=== PATIENT | female | born 1980 | race Caucasian/White ===

== ENCOUNTER 2016-03-16 19:02 | Observation (INO) | payer MEDICAID ==
--- NOTE | 2016-03-16 19:25 | ER Document Report ---
ED Medical Screen (RME) - General Stated Complaint: ABNORMAL MENSTRAL Time seen by provider: 19:22 Mode of Arrival: Ambulatory Information source: Patient Notes: 36 yo female presents to ed for heavy vaginal bleeding abnormal not yet due. Apical pulse 120. A tampon an hours TRAVEL OUTSIDE OF THE [place] IN LAST 30 DAYS: No - HPI Onset: Other - 2 days Onset/Duration: Worse Quality of pain: Dull Severity: Moderate Pain Level: 3 Associated Symptoms: Abdominal pain, Vaginal bleeding Exacerbated by: Denies Relieved by: Denies - Related Data Smoking: Non-smoker Frequency of alcohol use: Occasional Drug Abuse: None Allergies/Adverse Reactions: Heparin Analogues [Heparin Agents] Allergy (Verified 12/25/14 11:36) latex [Latex] Allergy (Verified 12/25/14 11:36) meperidine HCl [From Demerol] Allergy (Verified 12/25/14 11:36) morphine [Morphine] Allergy (Verified 12/25/14 11:36) ondansetron HCl [From Zofran] Allergy (Verified 12/25/14 11:36) promethazine HCl [From Phenergan] Adverse Reaction (Verified 12/25/14 11:36) Past Medical History Pulmonary Medical History: Reports: Hx Asthma GI Medical History: Reports: Hx Gastroesophageal Reflux Disease Musculoskeltal Medical History: Reports Hx Arthritis Psychiatric Medical History: Reports: Hx Attention Deficit Hyperactivity Disorder Past Surgical History: Reports: Hx Abdominal Surgery - EXPLORATORY LAP, Hx Appendectomy, Hx Breast Surgery - LUMPS UNDER ARMS BILAT, Hx Section - X3, Hx Cholecystectomy, Hx Gynecologic Surgery - R OVARY, UTERUS REPAIR, Hx Orthopedic Surgery - L WRIST SCREW, ULNAR NERVE - Immunizations Hx Diphtheria, Pertussis, Tetanus Vaccination: - unknown Physical Exam - Vital signs Vitals: Temp Pulse Resp BP Pulse Ox 98.1 F 123 H 16 113/70 99 03/16/16 19:15 03/16/16 19:15 03/16/16 19:15 03/16/16 19:15 03/16/16 19:15 Course - Vital Signs Vital signs: Temp Pulse Resp BP Pulse Ox 98.1 F 123 H 16 113/70 99 03/16/16 19:15 03/16/16 19:15 03/16/16 19:15 03/16/16 19:15 03/16/16 19:15
[2016-03-16] MEDS ORDERED: NORMAL SALINE 1000 ML 1,000 ML IV ONE (19:26)
--- NOTE | 2016-03-16 19:50 | EKG REPORT ---
SEVERITY:- BORDERLINE ECG - SINUS TACHYCARDIA PROBABLE LEFT ATRIAL ABNORMALITY NONSPECIFIC ST-T CHANGES : Confirmed by: Sacha Hilton 16-Mar-2016 19:49:23
[2016-03-16 20:03] LABS: ABSOLUTE LYMPHOCYTES (AUTO) 2.6 10^3/uL (0.5-4.7); ABSOLUTE MONOCYTES (AUTO) 0.4 10^3/uL (0.1-1.4); ABSOLUTE NEUT (AUTO) 1.9 10^3/uL (1.7-8.2); BASOPHILS % (AUTO) 0.5 % (0-2); EOSINOPHILS % (AUTO) 0.8 % (0-6); HEMATOCRIT 41.6 % (36.0-47.0); HEMOGLOBIN 14.2 g/dL (12.0-15.5); LYMPHOCYTES % (AUTO) 51.7 % (13-45); MEAN CORPUSCULAR HEMOGLOBIN 33.1 pg (27.0-33.4); MEAN CORPUSCULAR HGB CONC 34.1 g/dL (32.0-36.0); MEAN CORPUSCULAR VOLUME 97 fl (80-97); MONOCYTES % (AUTO) 8.1 % (3-13); RED BLOOD COUNT 4.29 10^6/uL (3.72-5.28); RED CELL DISTRIBUTION WIDTH 13.5 % (11.5-14.0); SEGMENTED NEUTROPHILS % (AUTO) 38.9 % (42-78); WHITE BLOOD COUNT 4.9 10^3/uL (4.0-10.5)
[2016-03-16 20:24] LABS: ALANINE AMINOTRANSFERASE 32 U/L (9-52); ALBUMIN 4.8 g/dL (3.5-5.0); ALKALINE PHOSPHATASE 45 U/L (38-126); ANION GAP 18 (5-19); ASPARTATE AMINO TRANSFERASE 25 U/L (14-36); BILIRUBIN,TOTAL 0.4 mg/dL (0.2-1.3); BLOOD UREA NITROGEN 13 mg/dL (7-20); CALCIUM 9.6 mg/dL (8.4-10.2); CARBON DIOXIDE 21 mmol/L (22-30); CHLORIDE 107 mmol/L (98-107); CREATININE RESULT 0.86 mg/dL (0.52-1.25); GLUCOSE 108 mg/dL (75-110); POTASSIUM 3.5 mmol/L (3.6-5.0); SODIUM 146.2 mmol/L (137-145); TOTAL PROTEIN 7.6 g/dL (6.3-8.2)
[2016-03-16] MEDS ORDERED: ATENOLOL 50 MG TABLET PO ONE (21:07)
[2016-03-16 23:23] LABS: HEMOGLOBIN 12.4 g/dL (12.0-15.5); MEAN CORPUSCULAR VOLUME 98 fl (80-97)
[2016-03-16 23:38] LABS: HGB HCT DIFFERENCE 0.2; MEAN CORPUSCULAR HGB CONC 33.5 g/dL (32.0-36.0); RED BLOOD COUNT 3.77 10^6/uL (3.72-5.28); RED CELL DISTRIBUTION WIDTH 13.1 % (11.5-14.0)
[2016-03-16 23:39] LABS: WHITE BLOOD COUNT 11.3 10^3/uL (4.0-10.5)
[2016-03-17] MEDS ORDERED: KETOROLAC TROMETHAMINE INJ/PF 30 MG/1 ML SDV IV ONE (00:22)
--- NOTE | 2016-03-17 00:48 | ER Document Report ---
ED General - General Chief Complaint: Vaginal Bleeding Stated Complaint: ABNORMAL MENSTRAL Mode of Arrival: Ambulatory Notes: Patient is a 36-year-old female who presents with 2 days of progressively worsening vaginal bleeding. States she has been having irregular menstrual period for the last 6 weeks and that the bleeding has become much more heavy over the last several days. States she's bleeding for at least one pad per hour at this time. Notes an associated suprapubic abdominal cramping related nothing improves or worsens the pain. Notes a history of POTS disease and that she normal takes atenolol for this but that she does not normally have significant tachycardia after taking this medication. However, she has not been able to get her heart rate to decrease prior to arrival. She has not seen her primary care physician but did contact her [facility] office and does have an appointment scheduled for the ninth. She was instructed to come to the emergency department by the [facility] office based on the amount of bleeding and her tachycardia. She states that she did have an episode of bleeding requiring transfusion and ablation 17 years ago. TRAVEL OUTSIDE OF THE [place] IN LAST 30 DAYS: No - Related Data Allergies/Adverse Reactions: Heparin Analogues [Heparin Agents] Allergy (Verified 03/16/16 19:26) latex [Latex] Allergy (Verified 03/16/16 19:26) meperidine HCl [From Demerol] Allergy (Verified 03/16/16 19:26) morphine [Morphine] Allergy (Verified 03/16/16 19:26) ondansetron HCl [From Zofran] Allergy (Verified 03/16/16 19:26) promethazine HCl [From Phenergan] Adverse Reaction (Verified 03/16/16 19:26) Home Medications: Current Home Medications Clonazepam [Klonopin] 1 - 2 tab PO QHS 03/17/16 [History] Hydrocodone/Acetaminophen [Hydrocodon-Acetaminophn 10-325] 1 - 2 tab PO PRN PRN 03/17/16 [History] Lisdexamfetamine Dimesylate [Vyvanse] 70 mg PO QAM 03/17/16 [History] Montelukast Sodium [Singulair 10 mg Tablet] 1 tab PO QHS 03/17/16 [History] Omeprazole 1 tab PO DAILY 03/17/16 [History] Pregabalin [Lyrica 100 mg Capsule] 03/17/16 [History] Pregabalin [Lyrica] 1 tab PO BID 03/17/16 [History] Past Medical History - General Information source: Patient - Social History Smoking Status: Never Smoker Chew tobacco use (# tins/day): No Frequency of alcohol use: Occasional Drug Abuse: None Lives with: Family Family History: Reviewed & Not Pertinent Patient has suicidal ideation: No Patient has homicidal ideation: No Pulmonary Medical History: Reports: Hx Asthma GI Medical History: Reports: Hx Gastroesophageal Reflux Disease Musculoskeltal Medical History: Reports Hx Arthritis Psychiatric Medical History: Reports: Hx Attention Deficit Hyperactivity Disorder Past Surgical History: Reports: Hx Abdominal Surgery - EXPLORATORY LAP, Hx Appendectomy, Hx Breast Surgery - LUMPS UNDER ARMS BILAT, Hx Section - X3, Hx Cholecystectomy, Hx Gynecologic Surgery - R OVARY, UTERUS REPAIR, Hx Orthopedic Surgery - L WRIST SCREW, ULNAR NERVE - Immunizations Hx Diphtheria, Pertussis, Tetanus Vaccination: Yes - unknown Review of Systems - Review of Systems Notes: Constitutional: Negative for fever. HENT: Negative for sore throat. Eyes: Negative for visual changes. Cardiovascular: Negative for chest pain. Respiratory: Negative for shortness of breath. Gastrointestinal: Positive for suprapubic abdominal pain Genitourinary: Negative for dysuria. Positive for heavy vaginal bleeding Musculoskeletal: Negative for back pain. Skin: Negative for rash. Neurological: Negative for headaches, weakness or numbness. 10 point ROS negative except as marked above and in HPI. Physical Exam - Vital signs Vitals: Temp Pulse Resp BP Pulse Ox 98.1 F 123 H 16 113/70 99 03/16/16 19:15 03/16/16 19:15 03/16/16 19:15 03/16/16 19:15 03/16/16 19:15 Interpretation: Tachycardic Notes: PHYSICAL EXAMINATION: GENERAL: Well-appearing, well-nourished and in no acute distress. HEAD: Atraumatic, normocephalic. EYES: Pupils equal round and reactive to light, extraocular movements intact, sclera anicteric, conjunctiva are normal. ENT: nares patent, oropharynx clear without exudates. Moist mucous membranes. NECK: Normal range of motion, supple without lymphadenopathy LUNGS: Breath sounds clear to auscultation bilaterally and equal. No wheezes rales or rhonchi. HEART: Regular rate and rhythm without murmurs ABDOMEN: Soft, nontender, normoactive bowel sounds. No guarding, no rebound. No masses appreciated. : There is a large amount of dark vaginal bleeding on pelvic exam that fills the speculum. I will visualize the cervix secondary to the quantity of bleeding. No adnexal tenderness. No cervical motion tenderness. Suprapubic tenderness on light palpation. EXTREMITIES: Normal range of motion, no pitting or edema. No cyanosis. NEUROLOGICAL: No focal neurological deficits. Moves all extremities spontaneously and on command. PSYCH: Anxious and somewhat tremulous SKIN: Warm, Dry, normal turgor, no rashes or lesions noted. Course - Re-evaluation Re-evalutation: 03/17/16 03:18 Patient presents with dysfunctional uterine bleeding going through more than 1 pad per hour at this time. She does arrive tachycardic with a slightly soft blood pressure. She was observed in the emergency department and given IV fluids and atenolol without resolution of her tachycardia. At this juncture, a repeat CBC was obtained that did show a near 2 point hemoglobin drop. She only received 500 mL of fluid so this is a far greater drop in what I would expect for hemodilution. Moreover, her pressure did tilt downward into the 90s. Based on these clinical changes, patient was admitted to the [facility] service. A transvaginal ultrasound was requested and was noted to be unremarkable with the exception of a right cyst. Her tachycardia did resolve after receiving 1 mg of IV Ativan - Vital Signs Vital signs: Temp Pulse Resp BP Pulse Ox 98.0 F 102 H 17 101/61 100 03/17/16 02:40 03/17/16 02:40 03/17/16 02:40 03/17/16 02:40 03/17/16 02:40 - Laboratory Result Diagrams: 03/16/16 23:14 03/16/16 19:35 Laboratory results interpreted by me: 03/16/16 03/16/16 03/16/16 19:35 19:35 22:10 WBC MCV Seg Neutrophils % 38.9 L Lymphocytes % 51.7 H Sodium 146.2 H Potassium 3.5 L Carbon Dioxide 21 L Urine Ketones TRACE H Urine Blood MODERATE H 03/16/16 23:14 WBC 11.3 H D MCV 98 H Seg Neutrophils % Lymphocytes % Sodium Potassium Carbon Dioxide Urine Ketones Urine Blood - Diagnostic Test Radiology reviewed: Reports reviewed - EKG Interpretation by Me Additional EKG results interpreted by me: 03/17/16 03:20 Sinus tachycardia. Rate 107. No ST elevations or depressions. QTC 481. Discharge - Discharge Clinical Impression: Dysfunctional uterine bleeding, Tachycardia Condition: Fair Disposition: ADMITTED OBSERVATION Admitting Provider: [facility] Unit Admitted: Post
[2016-03-17] MEDS ORDERED: LORAZEPAM INJ 2 MG/1 ML VIAL IV ONE (00:59)
[2016-03-17 02:44] LABS: APPEARANCE,URINE SLIGHTLY-CLOUDY; BILIRUBIN,URINE NEGATIVE (NEGATIVE); CALCIUM OXALATE CRYSTALS,URINE FEW /HPF; GLUCOSE, URINE NEGATIVE (NEGATIVE); KETONES,URINE TRACE mg/dL (NEGATIVE); LEUKOCYTE ESTERASE,URINE NEGATIVE (NEGATIVE); NITRITE,URINE NEGATIVE (NEGATIVE); PROTEIN,URINE NEGATIVE (NEGATIVE); URINE SPECIFIC GRAVITY 1.027; UROBILINOGEN,URINE NEGATIVE mg/dL (<2.0)
[2016-03-17] MEDS ORDERED: ACETAMINOPHEN 325 MG TABLET PO ONE (03:45)
--- NOTE | 2016-03-17 03:49 | PDOC H&P ---
History of Present Illness Admission Date/PCP: 03/17/16 01:05 POLLO DOBBINS MD Patient complains of: vaginal bleeding and tachycardia History of Present Illness: TRAVIS VEGA is a 36 year old female (h/o C/S x3 and h/o BTL) presents for vaginal bleeding. She reports LMP 02/29/2016 then a couple of days ago she began having spotting and this am woke up to bed soaked with blood ( soaked through her pajamas). She presented to the ER for evaluation also because she was unable to get her tachycardia to go down with her atenolol. SHe reports h/o MELENDREZ and takes atenolol for her tachy when "sodium and pressure points do not work". She has multiple other comorbidities and is on chronic narcotics at this time as well as klonipin. In ER she was reported to have vaginal vault filling with old clot with speculum placement. No US done so requested prior to transfer to the floor. Initially plan was to have pt followed up in office in am since despite tachy (known issue for pt) she had a normal hb/Hct and was stable. However, due to persistently elevated HR ER physician was uncomfortable with discharge and after IVF hb/Hct decreased slightly. Pt reports that she had a similar episode occur 17 yrs ago with normal initial presentation then rapid decompensation which required emergent D& C. Past Medical History LMP: 03/14/16 Gynecological Infection: No Obstetrical History: none - H/o c/s x 3 Pulmonary Medical History: Reports: Asthma GI Medical History: Reports: Gastroesophageal Reflux Disease Musculoskeltal Medical History: Reports: Arthritis Psychiatric Medical History: Reports: Attention Deficit Hyperactivity Disorder Past Surgical History Past Surgical History: Reports: Appendectomy, Section - X3, Cholecystectomy, Orthopedic Surgery - L WRIST SCREW, ULNAR NERVE, Tubal Ligation , Other - H/S with uterine scar removed and apparent drain/balloon placement per pt Social History Information Source: Patient Lives with: Family Smoking Status: Former Smoker - stopped smoking 20yrs ago Hx Recreational Drug Use: No Drugs: None Hx Prescription Drug Abuse: No - Advance Directive Resuscitation Status: Full Code Family History Family History: Reviewed & Not Pertinent Parental Family History Reviewed: No Children Family History Reviewed: NA Sibling(s) Family History Reviewed.: NA Medication/Allergy Home Medications: Clonazepam [Klonopin] 1 - 2 tab PO QHS 03/17/16 Hydrocodone/Acetaminophen [Hydrocodon-Acetaminophn 10-325] 1 - 2 tab PO PRN PRN 03/17/16 Lisdexamfetamine Dimesylate [Vyvanse] 70 mg PO QAM 03/17/16 Montelukast Sodium [Singulair 10 mg Tablet] 1 tab PO QHS 03/17/16 Omeprazole 1 tab PO DAILY 03/17/16 Pregabalin [Lyrica 100 mg Capsule] 03/17/16 Pregabalin [Lyrica] 1 tab PO BID 03/17/16 Allergies/Adverse Reactions: Heparin Analogues [Heparin Agents] Allergy (Verified 03/16/16 19:26) latex [Latex] Allergy (Verified 03/16/16 19:26) meperidine HCl [From Demerol] Allergy (Verified 03/16/16 19:26) morphine [Morphine] Allergy (Verified 03/16/16 19:26) ondansetron HCl [From Zofran] Allergy (Verified 03/16/16 19:26) promethazine HCl [From Phenergan] Adverse Reaction (Verified 03/16/16 19:26) Review of Systems Constitutional: PRESENT: as per HPI Cardiovascular: PRESENT: palpitations Respiratory: ABSENT: cough, hemoptysis Gastrointestinal: ABSENT: abdominal pain, constipation, diarrhea, hematemesis, hematochezia, nausea, vomiting Genitourinary: PRESENT: other - suprapubic pain Musculoskeletal: PRESENT: other - Right shoulder pain s/p injury. ABSENT: joint swelling Integumentary: ABSENT: rash, wounds Neurological: ABSENT: abnormal gait, abnormal speech, confusion, dizziness, focal weakness, syncope Psychiatric: PRESENT: anxiety Endocrine: ABSENT: cold intolerance, heat intolerance, polydipsia, polyuria Hematologic/Lymphatic: ABSENT: easy bleeding, easy bruising Physical Exam - Physical Exam Vital Signs: Temp Pulse Resp BP Pulse Ox 98.0 F 102 H 17 101/61 100 03/17/16 02:40 03/17/16 02:40 03/17/16 02:40 03/17/16 02:40 03/17/16 02:40 General appearance: PRESENT: no acute distress, cooperative, well-developed, well-nourished Head exam: PRESENT: atraumatic, normocephalic Respiratory exam: PRESENT: clear to auscultation nella, symmetrical, unlabored Cardiovascular exam: PRESENT: +S1, +S2, tachycardia - 106 Pulses: PRESENT: normal dorsalis pedis pul, +2 pedal pulses bilateral Vascular exam: PRESENT: normal capillary refill GI/Abdominal exam: PRESENT: normal bowel sounds, soft. ABSENT: distended, guarding, mass, organolmegaly, rebound, tenderness Gentrourinary exam: PRESENT: other - scant blood in vault Extremities exam: PRESENT: full ROM. ABSENT: calf tenderness, clubbing, pedal edema Musculoskeletal exam: PRESENT: ambulatory Neurological exam: PRESENT: alert, awake, oriented to person, oriented to place , oriented to time, oriented to situation, CN II-XII grossly intact. ABSENT: motor sensory deficit Psychiatric exam: PRESENT: appropriate affect, normal mood. ABSENT: homicidal ideation, suicidal ideation Skin exam: PRESENT: dry, intact, warm. ABSENT: cyanosis, rash - Gynecological Exam Labia: normal Urethra: normal Introitus: normal Perineum: normal Vagina: normal Cervix: normal, other - scant blood in vault, blood tinged mucus at cervix Cervix: normal Uterus: tender Adhexa: normal Rectal: not examined Rectovaginal: not examined Result Laboratory Results: Labs- All tests 24 hr 03/16/16 03/16/16 03/16/16 19:35 19:35 19:35 WBC 4.9 RBC 4.29 Hgb 14.2 Hct 41.6 MCV 97 MCH 33.1 MCHC 34.1 RDW 13.5 Plt Count 285 Seg Neutrophils % 38.9 L Lymphocytes % 51.7 H Monocytes % 8.1 Eosinophils % 0.8 Basophils % 0.5 Absolute Neutrophils 1.9 Absolute Lymphocytes 2.6 Absolute Monocytes 0.4 Absolute Eosinophils 0.0 Absolute Basophils 0.0 Sodium 146.2 H Potassium 3.5 L Chloride 107 Carbon Dioxide 21 L Anion Gap 18 BUN 13 Creatinine 0.86 Est GFR ( Amer) > 60 Est GFR (Non-Af Amer) > 60 Glucose 108 Calcium 9.6 Total Bilirubin 0.4 Direct Bilirubin 0.0 AST 25 ALT 32 Alkaline Phosphatase 45 Total Protein 7.6 Albumin 4.8 Serum HCG, Qual NEGATIVE Urine Color Urine Appearance Urine pH Ur Specific [place] Urine Protein Urine Glucose (UA) Urine Ketones Urine Blood Urine Nitrite Urine Bilirubin Urine Urobilinogen Ur Leukocyte Esterase Urine WBC (Auto) Urine RBC (Auto) U Hyaline Cast (Auto) Urine Bacteria (Auto) Urine Red Cell Clumps Urine WBC Clumps Squamous Epi Cells Auto U Non-Squamous Epis Auto Calcium Carbonate Cryst Calcium Phosphate Cryst Calcium Oxalate Cr Auto Leucine Crystals Cystine Crystals Uric Acid Cryst (Auto) Triple Phos Cryst (Auto) Tyrosine Crystals Amorphous Sediment Auto Cellular Casts Epithelial Casts (Auto) Fatty Casts Granular Casts (Auto) Waxy Casts (Auto) Broad Casts RBC Casts (Auto) WBC Casts (Auto) Urine Mucus (Auto) U Trichomonas (Auto) Ur Yeast w Hyphae Urine Yeast (Budding) Urine Ascorbic Acid 03/16/16 03/16/16 03/16/16 19:55 22:10 23:14 WBC 11.3 H D RBC 3.77 Hgb 12.4 Hct 37.0 MCV 98 H MCH 33.0 MCHC 33.5 RDW 13.1 Plt Count 259 Seg Neutrophils % Lymphocytes % Monocytes % Eosinophils % Basophils % Absolute Neutrophils Absolute Lymphocytes Absolute Monocytes Absolute Eosinophils Absolute Basophils Sodium Potassium Chloride Carbon Dioxide Anion Gap BUN Creatinine Est GFR ( Amer) Est GFR (Non-Af Amer) Glucose Calcium Total Bilirubin Direct Bilirubin AST ALT Alkaline Phosphatase Total Protein Albumin Serum HCG, Qual Urine Color Cancelled YELLOW Urine Appearance Cancelled SLIGHTLY-CLOUDY Urine pH Cancelled 5.0 Ur Specific [place] Cancelled 1.027 Urine Protein Cancelled NEGATIVE Urine Glucose (UA) Cancelled NEGATIVE Urine Ketones Cancelled TRACE H Urine Blood Cancelled MODERATE H Urine Nitrite Cancelled NEGATIVE Urine Bilirubin Cancelled NEGATIVE Urine Urobilinogen Cancelled NEGATIVE Ur Leukocyte Esterase Cancelled NEGATIVE Urine WBC (Auto) Cancelled 0 Urine RBC (Auto) Cancelled 4 U Hyaline Cast (Auto) Cancelled Urine Bacteria (Auto) Cancelled Urine Red Cell Clumps Cancelled Urine WBC Clumps Cancelled Squamous Epi Cells Auto Cancelled U Non-Squamous Epis Auto Cancelled Calcium Carbonate Cryst Cancelled Calcium Phosphate Cryst Cancelled Calcium Oxalate Cr Auto Cancelled FEW Leucine Crystals Cancelled Cystine Crystals Cancelled Uric Acid Cryst (Auto) Cancelled Triple Phos Cryst (Auto) Cancelled Tyrosine Crystals Cancelled Amorphous Sediment Auto Cancelled Cellular Casts Cancelled Epithelial Casts (Auto) Cancelled Fatty Casts Cancelled Granular Casts (Auto) Cancelled Waxy Casts (Auto) Cancelled Broad Casts Cancelled RBC Casts (Auto) Cancelled WBC Casts (Auto) Cancelled Urine Mucus (Auto) Cancelled RARE U Trichomonas (Auto) Cancelled Ur Yeast w Hyphae Cancelled Urine Yeast (Budding) Cancelled Urine Ascorbic Acid Cancelled NEGATIVE Impressions: Transvaginal US 03/17/16 00:47 IMPRESSION: SMALL SIMPLE CYST IN THE RIGHT OVARY. OTHERWISE UNREMARKABLE TRANSVAGINAL PELVIC ULTRASOUND. ES 3mm Status: Image reviewed by me Assessment & Plan - Diagnosis (1) Dysfunctional uterine bleeding Is this a current diagnosis for this admission?: YesPlan: As per HPI. Initial plan was to discharge pt and have her f/u in office however tachycardia in ER and ER physician unable to discharge pt. Pt now with HR of 106 and stable. Exam completely benign. Will get repeat CBC in am and if ok and pt bleeding remains stable may be ok to discharge. (2) Tachycardia Is this a current diagnosis for this admission?: YesPlan: Dr. Way Hospitalist notified re: pt with tachy and advised to give pt Ativan 1mg. ER phsyician gave pt ativan and HR now down from 120-130 to 102- 106. Will follow CBC and pt NPO. If still tach in am may need Hospitalist to evaluate officially. - Time Time Spent: 30 to 50 Minutes Critical Time spent with patient: Less than 15 minutes Medications reviewed and adjusted accordingly: No Anticipated discharge: Home Within: within 24 hours - Inpatient Certification Medical Necessity: Need Close Monitoring Due to Risk of Patient Decompensation Post Hospital Care: D/C [employer] Operator Documentation
[2016-03-17 07:23] LABS: ABSOLUTE LYMPHOCYTES (AUTO) 2.2 10^3/uL (0.5-4.7); ABSOLUTE MONOCYTES (AUTO) 0.6 10^3/uL (0.1-1.4); ABSOLUTE NEUT (AUTO) 2.1 10^3/uL (1.7-8.2); BASOPHILS % (AUTO) 0.4 % (0-2); EOSINOPHILS % (AUTO) 0.7 % (0-6); HEMATOCRIT 32.4 % (36.0-47.0); HEMOGLOBIN 11.2 g/dL (12.0-15.5); HGB HCT DIFFERENCE 1.2; LYMPHOCYTES % (AUTO) 44.2 % (13-45); MEAN CORPUSCULAR HEMOGLOBIN 33.3 pg (27.0-33.4); MEAN CORPUSCULAR HGB CONC 34.5 g/dL (32.0-36.0); MEAN CORPUSCULAR VOLUME 97 fl (80-97); MONOCYTES % (AUTO) 11.4 % (3-13); RED BLOOD COUNT 3.36 10^6/uL (3.72-5.28); RED CELL DISTRIBUTION WIDTH 13.4 % (11.5-14.0); SEGMENTED NEUTROPHILS % (AUTO) 43.3 % (42-78); WHITE BLOOD COUNT 4.9 10^3/uL (4.0-10.5)
[2016-03-17 08:09] LABS: CHLAM PCR NOT DETECTED (NOT DETECT)
[2016-03-17] MEDS ORDERED: IBUPROFEN 800 MG TABLET PO PRN ×2 (10:29→11:23)
[2016-03-17] MEDS ORDERED: IBUPROFEN 800 MG TABLET PO ONE (11:00)
[2016-03-17 11:24] LABS: ANION GAP 13 (5-19); BLOOD UREA NITROGEN 14 mg/dL (7-20); CALCIUM 8.9 mg/dL (8.4-10.2); CARBON DIOXIDE 20 mmol/L (22-30); CHLORIDE 108 mmol/L (98-107); CREATININE RESULT 0.61 mg/dL (0.52-1.25); GLUCOSE 100 mg/dL (75-110); POTASSIUM 3.6 mmol/L (3.6-5.0); SODIUM 141.4 mmol/L (137-145)
[2016-03-17] MEDS ORDERED: CLONAZEPAM 1 MG TABLET PO PRN ×2 (15:21→15:28)
[2016-03-17] MEDS: HYDROCODONE/ACETAMINOPHEN 10-325 MG TABLET PO PRN ×2 (15:35→21:23)
[2016-03-17] MEDS ORDERED: METOPROLOL TARTRATE 25 MG TABLET PO ONE (17:00)
[2016-03-17] MEDS: PREGABALIN 50 MG CAPSULE PO SCH (21:23)
[2016-03-17] MEDS ORDERED: CLONAZEPAM 1 MG TABLET PO SCH (22:00)
[2016-03-17] MEDS ORDERED: CLONAZEPAM 1 MG PO SCH (22:00)
[2016-03-17] MEDS ORDERED: MONTELUKAST SODIUM 10 MG TABLET PO SCH (22:00)
[2016-03-18] MEDS ORDERED: LANSOPRAZOLE 30 MG TAB.RAP.DR PO SCH (08:00)
[2016-03-18] MEDS ORDERED: METOPROLOL TARTRATE 25 MG TABLET PO SCH (10:00)
[2016-03-18] MEDS: PREGABALIN 50 MG CAPSULE PO SCH (10:41)
[2016-03-18 12:50] VITALS: BP 100/48
== END 2016-03-18 14:20 | disposition home or self-care (01) ==
LOC: ER 19:02 → EH 03-17 01:05 → 4S 03-17 02:36
PROVIDERS: ADMIT Student in an Organized Health Care Education/Training Program; ATTEND Student in an Organized Health Care Education/Training Program
DX: N93.8 Other specified abnormal uterine and vaginal bleeding (principal); R00.0 Tachycardia, unspecified; Z87.891 Personal history of nicotine dependence; J45.909 Unspecified asthma, uncomplicated; K21.9 Gastro-esophageal reflux disease without esophagitis; M19.90 Unspecified osteoarthritis, unspecified site; F90.9 Attention-deficit hyperactivity disorder, unspecified type; Z79.899 Other long term (current) drug therapy
CPT/HCPCS: 93005; 99285; 96361; 96374; 36415 ×2; 84703; 85025 ×2; 85027; 80048; 80053; 81001; 87491; 87591; 76830; 93010; G0378 ×2; J3490 ×8; J1885; J7030

== ENCOUNTER 2016-04-05 07:22 | Day surgery (SDC) | payer MEDICAID ==
[2016-04-04 13:48] LABS: ABSOLUTE LYMPHOCYTES (AUTO) 1.5 10^3/uL (0.5-4.7); ABSOLUTE MONOCYTES (AUTO) 0.4 10^3/uL (0.1-1.4); BASOPHILS % (AUTO) 0.7 % (0-2); EOSINOPHILS % (AUTO) 0.9 % (0-6); HEMATOCRIT 38.5 % (36.0-47.0); HEMOGLOBIN 12.9 g/dL (12.0-15.5); HGB HCT DIFFERENCE 0.2; LYMPHOCYTES % (AUTO) 37.5 % (13-45); MEAN CORPUSCULAR HGB CONC 33.5 g/dL (32.0-36.0); MEAN CORPUSCULAR VOLUME 99 fl (80-97); MONOCYTES % (AUTO) 9.2 % (3-13); RED CELL DISTRIBUTION WIDTH 13.1 % (11.5-14.0); SEGMENTED NEUTROPHILS % (AUTO) 51.7 % (42-78); WHITE BLOOD COUNT 3.9 10^3/uL (4.0-10.5)
[2016-04-04 14:34] LABS: AMORPHOUS SEDIMENT,URINE TRACE /HPF; APPEARANCE,URINE CLOUDY; BILIRUBIN,URINE NEGATIVE (NEGATIVE); GLUCOSE, URINE NEGATIVE (NEGATIVE); KETONES,URINE NEGATIVE (NEGATIVE); LEUKOCYTE ESTERASE,URINE NEGATIVE (NEGATIVE); NITRITE,URINE NEGATIVE (NEGATIVE); PROTEIN,URINE NEGATIVE (NEGATIVE); URINE SPECIFIC GRAVITY 1.023; UROBILINOGEN,URINE NEGATIVE mg/dL (<2.0)
[~2016-04-05 07:22] MED LIST: ACETAMINOPHEN INJ/PF 1000 MG/100 ML SDV IV PRN; CEFAZOLIN 2 GM/D5W RTU 2 GM/50 ML RTUPB IV ONE; LACTATED RINGERS 1000 ML IV PRN; LIDOCAINE 0.5% INJ-PF (5 MG/ML) 50 ML SDV SUBCUT PRN
[2016-04-05] MEDS ORDERED: DEXAMETHASONE SOD PHOSPHATE INJ 4 MG/1 ML VIAL ONE (07:52)
[2016-04-05] MEDS ORDERED: LIDOCAINE 2% INJ-PF (20 MG/ML) 10 ML AMPUL ONE (07:52)
[2016-04-05] MEDS ORDERED: SUCCINYLCHOLINE CHLORIDE INJ 200 MG/10 ML VIAL ONE (07:52)
[2016-04-05] MEDS ORDERED: KETOROLAC TROMETHAMINE 60 MG/2 ML SDV ONE (07:52)
[2016-04-05] MEDS ORDERED: ONDANSETRON HCL INJ/PF 4 MG/2 ML SDV ONE (07:52)
[2016-04-05] MEDS ORDERED: ACETAMINOPHEN 100 ML IV ONE (08:45)
[2016-04-05] MEDS ORDERED: PROPOFOL INJ 200 MG/20 ML VIAL IV ONE (08:45)
[2016-04-05] MEDS ORDERED: MIDAZOLAM 2 MG/2 ML INJ ONE (08:45)
[2016-04-05] MEDS ORDERED: FENTANYL CITRATE INJ/PF 100 MCG/2 ML AMPUL ONE (08:45)
[2016-04-05] MEDS ORDERED: DIAZEPAM 5 MG TABLET ONE (09:26)
[2016-04-05] MEDS ORDERED: DIPHENHYDRAMINE HCL 50 MG/ML VIAL IV PRN (11:20)
[2016-04-05] MEDS: FENTANYL CITRATE INJ/PF 100 MCG/2 ML AMPUL ONE ×2 (11:55→12:00)
[2016-04-05] MEDS ORDERED: LORAZEPAM INJ 2 MG/1 ML VIAL ONE (12:02)
--- NOTE | 2016-04-05 12:13 | OPERATIVE REPORT E ---
Operative Report NAME: TRAVIS VEGA : 1980 AGE: 36Y DATE OF SURGERY: 04/05/2016 ROOM: PREOPERATIVE DIAGNOSES: 1. Abnormal uterine bleeding which led to anemia. 2. Endometrial polyp. POSTOPERATIVE DIAGNOSES: 1. Abnormal uterine bleeding which led to anemia. 2. Endometrial polyp OPERATION PERFORMED: Hysteroscopy with Novasure ablation. SURGEON: ROSE NUNEZ M.D. ANESTHESIA: General endotracheal. ESTIMATED BLOOD LOSS: 3 mL. SPECIMEN TO PATHOLOGY: None. FINDINGS: Uterine cavity was fairly atrophic. There were just scant filmy remnants where the endometrial polyp had been prior to biopsy. The cavity measurements were 4 cm in length 3.9 cm in width. Ablation was 2 minutes at a power of 86. DESCRIPTION OF PROCEDURE: After discussing risks, benefits, and alternatives of the procedure and obtaining informed consent, the patient was taken to the operating room where general anesthesia was achieved. She was positioned in the dorsal lithotomy position, prepped and draped in the usual standard fashion. Speculum was placed in the vagina, anterior aspect of the cervix was grasped with a single toothed tenaculum. The cervix was serially dilated to a #8 Hegar. The hysteroscope was placed with the findings noted as described above. The hysteroscope was removed. The Novasure device was placed and cavity measurements obtained. The cavity integrity assessment passed. The cavity was ablated for a total of 2 minutes. The device was removed. The hysteroscope was reintroduced and the cavity appeared ablated. The hysteroscope was removed and tenaculum was removed. Hemostasis was assured. The speculum was removed. Patient was taken out of dorsal lithotomy. She was awakened from anesthesia and to recovery in stable condition. All sponge, needle, lap, and instrument counts were correct x2. DICTATING PHYSICIAN: ROSE NUNEZ M.D. [id number] PHY#: [id number] ID: [id number] JOB#: [id number] ACCT: [id number] cc:ROSE NUNEZ M.D. > MTDD
[2016-04-05] MEDS ORDERED: OXYCODONE-ACETAMINOPHEN 5-325 MG TABLET PO PRN ×2 (12:23→12:24)
[2016-04-05] MEDS ORDERED: OXYCODONE HCL IR 5 MG TABLET PO PRN ×2 (12:27→12:28)
[2016-04-05 14:13] VITALS: BP 132/91
== END 2016-04-05 13:45 | disposition home or self-care (01) ==
LOC: OROUT 07:22
PROVIDERS: ATTEND Specialist
PROC: 0U5B8ZZ Destruction of Endometrium, Via Natural or Artificial Opening Endoscopic (ICD-10-PCS; principal; 2016-04-05 09:15)
DX: N92.6 Irregular menstruation, unspecified (principal); N84.0 Polyp of corpus uteri; J45.909 Unspecified asthma, uncomplicated; K21.9 Gastro-esophageal reflux disease without esophagitis; M19.90 Unspecified osteoarthritis, unspecified site; R01.1 Cardiac murmur, unspecified; Z79.899 Other long term (current) drug therapy; Z79.51 Long term (current) use of inhaled steroids; Z88.5 Allergy status to narcotic agent; Z88.8 Allergy status to other drugs, medicaments and biological substances
CPT/HCPCS: 86900; 86901; 36415; 86850; 85025; 81025; 81001; 58563; J2250; J1100; J3490 ×2; J1885; J3010; J2060; J0330; J2405; J2704; J0690; J0131; 952

== ENCOUNTER 2017-03-30 18:37 | Emergency (ER) | payer MEDICAID, OTHER ==
--- NOTE | 2017-03-30 19:09 | RADIOLOGY REPORT (SQ) ---
EXAM DESCRIPTION: CT HEAD WITHOUT COMPLETED DATE/TIME: 03/30/2017 7:01 pm REASON FOR STUDY: fall COMPARISON: None. TECHNIQUE: Axial images acquired through the brain without intravenous contrast. Images reviewed wi th bone, brain and subdural windows. Images stored on PACS. All CT scanners at this facility use dose modulation, iterative reconstruction, and/or weight based d osing when appropriate to reduce radiation dose to as low as reasonably achievable (ALARA). [facility]: Dose Right [facility]: CareDose [facility]: Dose Right [facility]: Teradose 4D [facility]: [place] RADIATION DOSE: CT Rad equipment meets quality standard of care and radiation dose reduction techniq ues were employed. CTDIvol: 64.6 mGy. DLP: 1163 mGy-cm. mGy. LIMITATIONS: None. FINDINGS: VENTRICLES: Normal size and contour. CEREBRUM: No masses. No hemorrhage. No midline shift. No evidence for acute infarction. Normal gra y/white matter differentiation. No areas of low density in the white matter. CEREBELLUM: No masses. No hemorrhage. No alteration of density. No evidence for acute infarction. EXTRAAXIAL SPACES: No fluid collections. No masses. ORBITS AND GLOBE: No intra- or extraconal masses. Normal contour of globe without masses. CALVARIUM: No fracture. PARANASAL SINUSES: No fluid or mucosal thickening. SOFT TISSUES: No mass or hematoma. OTHER: No other significant finding. IMPRESSION: NORMAL BRAIN CT WITHOUT CONTRAST. EVIDENCE OF ACUTE STROKE: NO. COMMENT: Quality ID # [id number]: Final reports with documentation of one or more dose reduction techniques (e.g., Automated exposure control, adjustment of the mA and/or kV according to patient size, use of iterative reconstruction technique) TECHNICAL DOCUMENTATION: JOB ID: [id number] [employer]- All Rights Reserved
--- NOTE | 2017-03-30 19:10 | RADIOLOGY REPORT (SQ) ---
EXAM DESCRIPTION: CT CERVICAL SPINE WITHOUT COMPLETED DATE/TIME: 03/30/2017 7:01 pm REASON FOR STUDY: fall COMPARISON: None. TECHNIQUE: Axial images acquired through the cervical spine without intravenous contrast. Images re viewed with lung, soft tissue and bone windows. Reconstructed coronal and sagittal MPR images review ed. Images stored on PACS. All CT scanners at this facility use dose modulation, iterative reconstruction, and/or weight based d osing when appropriate to reduce radiation dose to as low as reasonably achievable (ALARA). [facility]: Dose Right [facility]: CareDose [facility]: Dose Right [facility]: Teradose 4D [facility]: Smart Biba RADIATION DOSE: CT Rad equipment meets quality standard of care and radiation dose reduction techniq ues were employed. CTDIvol: 13.1 mGy. DLP: 299 mGy-cm. mGy. LIMITATIONS: None. FINDINGS: ALIGNMENT: Anatomic. MINERALIZATION: Normal. VERTEBRAL BODIES: No fractures or dislocation. DISCS: No significant disc disease. FACETS, LATERAL MASSES, POSTERIOR ELEMENTS: No fractures. No dislocation. No acute findings. HARDWARE: None in the spine. VISUALIZED RIBS: No fractures. LUNG APICES AND SOFT TISSUES: No significant or acute findings. OTHER: No other significant finding. IMPRESSION: NO ACUTE OR SIGNIFICANT FINDINGS IN THE CERVICAL SPINE. TECHNICAL DOCUMENTATION: JOB ID: [id number] Quality ID # [id number]: Final reports with documentation of one or more dose reduction techniques (e.g., Au tomated exposure control, adjustment of the mA and/or kV according to patient size, use of iterative reconstruction technique) 2010 [employer]- All Rights Reserved
--- NOTE | 2017-03-30 19:47 | ER Document Report ---
ED General - General Chief Complaint: Fall Stated Complaint: FALL/HEAD PAIN Time Seen by Provider: 03/30/17 19:27 Notes: Patient is a 37-year-old female with a past medical history of orthostatic hypotension, who presents after having a syncopal episode last night in which she struck her head on the toilet. She states that since that time she has had multiple episodes of vomiting, confusion, mood instability, and difficulty handling tasks that she normally does without difficulty. Symptoms have been unchanged since onset. Notes that her symptoms are worsened by lights, sounds and physical activity. Nothing improves her symptoms. No history of similar injuries in the past. She does not take any form of anticoagulation. She does also note a dull, constant, throbbing headache that is located to the bitemporal regions of her scalp. Nothing improves or worsens that pain. She has not seen her primary doctor regarding today's concerns. TRAVEL OUTSIDE OF THE [place] IN LAST 30 DAYS: No - Related Data Allergies/Adverse Reactions: Heparin Analogues [Heparin Agents] Allergy (Verified 03/30/17 18:41) latex [Latex] Allergy (Verified 03/30/17 18:41) TROUBLE BREATHING, RED RASH meperidine HCl [From Demerol] Allergy (Verified 03/30/17 18:41) morphine [Morphine] Allergy (Verified 03/30/17 18:41) ondansetron HCl [From Zofran] Allergy (Verified 03/30/17 18:41) scopolamine Allergy (Verified 03/30/17 18:41) promethazine HCl [From Phenergan] Adverse Reaction (Verified 03/30/17 18:41) Past Medical History - General Information source: Patient - Social History Smoking Status: Never Smoker Frequency of alcohol use: Occasional Drug Abuse: None Lives with: Spouse/Significant other Family History: Reviewed & Not Pertinent - Past Medical History Cardiac Medical History: Reports: Hx Hypertension Denies: Hx Coronary Artery Disease, Hx Heart Attack Pulmonary Medical History: Reports: Hx Asthma - EXERCISE INDUCED Denies: Hx Bronchitis, Hx COPD, Hx Pneumonia Neurological Medical History: Reports: Hx Seizures. Denies: Hx Cerebrovascular Accident GI Medical History: Reports: Hx Gastroesophageal Reflux Disease Musculoskeltal Medical History: Reports Hx Arthritis Psychiatric Medical History: Reports: Hx Attention Deficit Hyperactivity Disorder Past Surgical History: Reports: Hx Abdominal Surgery - EXPLORATORY LAP, Hx Appendectomy, Hx Breast Surgery - LUMPS UNDER ARMS BILAT, Hx Section - X3, Hx Cholecystectomy, Hx Gynecologic Surgery - R OVARY, UTERUS REPAIR, Hx Orthopedic Surgery - L WRIST SCREW, ULNAR NERVE, Hx Tubal Ligation, Other - H/S with uterine scar removed and apparent drain/balloon placement per pt - Immunizations Hx Diphtheria, Pertussis, Tetanus Vaccination: Yes - unknown Review of Systems - Review of Systems Notes: Constitutional: Negative for fever. HENT: Negative for sore throat. Eyes: Negative for visual changes. Cardiovascular: Negative for chest pain. Respiratory: Negative for shortness of breath. Gastrointestinal: Positive for vomiting Genitourinary: Negative for dysuria. Musculoskeletal: Negative for back pain. Skin: Negative for rash. Neurological: Positive for headache 10 point ROS negative except as marked above and in HPI. Physical Exam - Vital signs Vitals: Temp Pulse Resp BP Pulse Ox 98.1 F 122 H 18 118/88 H 94 03/30/17 18:48 03/30/17 18:48 03/30/17 18:48 03/30/17 18:48 03/30/17 18:48 Interpretation: Tachycardic Notes: PHYSICAL EXAMINATION: GENERAL: Well-appearing, well-nourished and in no acute distress. HEAD: Atraumatic, normocephalic. EYES: Pupils equal round and reactive to light, extraocular movements intact, sclera anicteric, conjunctiva are normal. ENT: nares patent, oropharynx clear without exudates. Dry mucous membranes. NECK: Normal range of motion, supple without lymphadenopathy LUNGS: Breath sounds clear to auscultation bilaterally and equal. No wheezes rales or rhonchi. HEART: Regular rate and rhythm without murmurs ABDOMEN: Soft, nontender, normoactive bowel sounds. No guarding, no rebound. No masses appreciated. EXTREMITIES: Normal range of motion, no pitting or edema. No cyanosis. NEUROLOGICAL: Face symmetric. Tongue protrudes midline. Extraocular motions intact. Pupils are 2 mm and equally reactive. Normal speech, normal gait. 5 out of 5 strength in both the distal and proximal upper and lower extremities bilaterally. Sensation is grossly intact throughout. Finger to nose testing normal. Pronator drift normal. PSYCH: Moderately anxious SKIN: Warm, Dry, normal turgor, no rashes or lesions noted. Course - Re-evaluation Re-evalutation: 03/30/17 19:44 Patient presents with signs and symptoms most consistent with an acute concussion after having a near syncopal episode yesterday striking her head on the toilet. 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 She states when she stood up from the toilet she became acutely lightheaded, fell forward and struck her head. Since that time she has had forgetfulness, lightheadedness, emotional lability, insomnia, and nausea. She states she also had lost consciousness at the time of the episode. Patient was therefore unable to be clinically cleared by [place] head or cervical spine criteria she was also complaining of neck pain with her neurologic complaints. CT the head and cervical spine are unremarkable. She has no focal neurologic deficit on examination. I have reviewed concussion precautions with the patient at length as well as her at the bedside. She did not sustain any additional injuries during this fall. She has no additional complaints or concerns. At this time will discharge with return precautions and follow-up recommendations. Verbal discharge instructions given a the bedside and opportunity for questions given. Medication warnings reviewed. Patient is in agreement with this plan and has verbalized understanding of return precautions and the need for primary care follow-up in the next 24-72 hours. - Vital Signs Vital signs: Temp Pulse Resp BP Pulse Ox 98.1 F 71 16 128/84 H 95 03/30/17 18:48 03/30/17 20:26 03/30/17 20:26 03/30/17 20:26 03/30/17 20:26 - Diagnostic Test Radiology reviewed: Image reviewed, Reports reviewed Radiology results interpreted by me: 03/30/17 19:46 CT head: No acute intracranial bleed Discharge - Discharge Clinical Impression: Head trauma Qualifiers: Encounter type: initial encounter Qualified Code(s): S09.90XA - Unspecified injury of head, initial encounter Concussion Qualifiers: Encounter type: initial encounter Loss of consciousness presence/duration: with LOC of 30 min or less Qualified Code(s): S06.0X1A - Concussion with loss of consciousness of 30 minutes or less, initial encounter Condition: Good Disposition: HOME, SELF-CARE Additional Instructions: You have likely sustained a contusion (bruise) to your head. If you had a CT scan done, it did not show any evidence of serious injury or bleeding. Symptoms to expect from a concussion include nausea, mild to moderate headache, difficulty concentrating or sleeping, and mild lightheadedness. These symptoms should improve over the next few days to weeks. Return to the emergency department or follow-up with your primary care doctor if your symptoms are not improving over this time. Signs of a more serious head injury include vomiting , severe headache, excessive sleepiness or confusion, and weakness or numbness in your face, arms or legs. Return immediately to the Emergency Department if you experience any of these more concerning symptoms. Rest, avoid strenuous physical or mental activity, and avoid activities that could potentially result in another head injury until all your symptoms from this head injury are completely resolved for at least 2-3 weeks. If you participate in sports, get cleared by your doctor or strainer tender before returning to play. You may take ibuprofen or acetaminophen over the counter according to label instructions for mild headache or scalp soreness. Referrals: NORA CASANOVA, [Primary Care Provider] - Follow up as needed
[2017-03-30 20:27] VITALS: BP 128/84
== END 2017-03-30 20:26 | disposition home or self-care (01) ==
LOC: ER 18:37
DX: S06.0X1A Concussion with loss of consciousness of 30 minutes or less, initial encounter (principal); W22.09XA Striking against other stationary object, initial encounter; R55 Syncope and collapse; F41.9 Anxiety disorder, unspecified; R00.0 Tachycardia, unspecified; I10 Essential (primary) hypertension; J45.909 Unspecified asthma, uncomplicated; Z88.8 Allergy status to other drugs, medicaments and biological substances; Z88.5 Allergy status to narcotic agent; Z91.040 Latex allergy status; Z86.79 Personal history of other diseases of the circulatory system
CPT/HCPCS: 99283; 70450; 72125; L0120

== ENCOUNTER → 2017-04-08 | Outpatient (CLI) | payer OTHER ==
--- NOTE | 2017-04-08 11:18 | RADIOLOGY REPORT (SQ) ---
EXAM DESCRIPTION: MRI HEAD WITHOUT COMPLETED DATE/TIME: 04/08/2017 11:03 am REASON FOR STUDY: EPISODE OF CHANGE IN SPEECH, HEAD INJURY R47.89 OTHER SPEECH DISTURBANCES S09.90X A UNSPECIFIED INJURY OF HEAD, INITIAL ENCOUNTER COMPARISON: CT of the head without contrast 03/30/2017. TECHNIQUE: Multiplanar imaging includes non-contrasted T1, T2, FLAIR, and diffusion with ADC map seq uences. Images stored on PACS. LIMITATIONS: None. FINDINGS: ANATOMY: No anomalies. Normal vascular flow voids. Pituitary fossa normal. CSF SPACES: Normal in size and contour. No hemorrhage. CEREBRUM: Sulci and gyri normal in size and contour. Normal white matter signal on FLAIR imaging. No evidence of hemorrhage, mass, or extraaxial fluid collection. POSTERIOR FOSSA: No signal alteration. No hemorrhage. No edema, masses or mass effect. Internal ellie tory canals, cerebello-pontine angles, mastoids normal. DIFFUSION IMAGING: Negative for acute or sub-acute infarction. ORBITS: No masses. Globes normal. PARANASAL SINUSES: No fluid levels. Mucosa normal. OTHER: No other significant finding. IMPRESSION: NORMAL MRI OF THE BRAIN WITHOUT INTRAVENOUS GADOLINIUM CONTRAST. EVIDENCE OF ACUTE STROKE: NO. TECHNICAL DOCUMENTATION: JOB ID: [id number] SC-[id number] 2010 [employer]- All Rights Reserved
== END ==
LOC: RAD 09:23
PROVIDERS: ATTEND Family Medicine
DX: S09.90XA Unspecified injury of head, initial encounter (principal); X58.XXXA Exposure to other specified factors, initial encounter; R47.89 Other speech disturbances; Y93.9 Activity, unspecified; Y92.9 Unspecified place or not applicable; Y99.9 Unspecified external cause status
CPT/HCPCS: 70551

== ENCOUNTER → 2017-04-17 | Outpatient (CLI) | payer OTHER ==
--- NOTE | 2017-04-17 14:25 | RADIOLOGY REPORT (SQ) ---
EXAM DESCRIPTION: MRI HEAD WITH COMPLETED DATE/TIME: 04/17/2017 11:42 am REASON FOR STUDY: R47.89 OTHER SPEECH DISTURBANCES R47.89 OTHER SPEECH DISTURBANCES COMPARISON: CT brain 03/30/2017 MRI brain 04/08/2017 TECHNIQUE: Multiplanar imaging includes noncontrasted T1, T2, FLAIR, diffusion with ADC map and post gadolinium contrast T1 sequences. Images stored on PACS. CONTRAST TYPE AND DOSE: 10 mL Multihance. RENAL FUNCTION: None required. The patient is less than 50 years old. LIMITATIONS: None. FINDINGS: Post contrasted MRI was performed, correlated with MRI exam from 04/08/2017. No abnormal brain parenchymal or dural enhancement. Normal enhancement of the dural venous sinuses a nd cavernous sinuses. No facial or scalp findings. IMPRESSION: Unremarkable post-contrast MRI of the brain EVIDENCE OF ACUTE STROKE: NO. TECHNICAL DOCUMENTATION: JOB ID: [id number] [employer]- All Rights Reserved
== END ==
LOC: RAD 10:49
PROVIDERS: ATTEND Family Medicine
DX: R47.89 Other speech disturbances (principal)
CPT/HCPCS: 70552; A9577

== ENCOUNTER 2017-04-25 21:40 | Emergency (ER) | payer OTHER ==
[2017-04-25] MEDS ORDERED: HALOPERIDOL LACTATE INJ 5 MG/1 ML VIAL ONE (21:47)
[2017-04-25] MEDS ORDERED: HALOPERIDOL LACTATE INJ 5 MG/1 ML VIAL IV ONE (21:47)
--- NOTE | 2017-04-25 21:48 | ER Document Report ---
ED General - General Stated Complaint: POSSIBLE SEIZURE Time Seen by Provider: 04/25/17 21:47 Cannot obtain history due to: Uncooperative, Altered mental status Notes: Patient is a 37-year-old female with a past medical history of pseudoseizures who presents actively having a pseudoseizure. She does arrive by EMS and did receive midazolam as well as diazepam prior to arrival. EMS reports that this did not resolve her symptoms. Patient is demonstrating pelvic thrusting, arm stretching, and screaming. However in the midst of these behaviors she is able to tell me her name and then goes back to pelvic thrusting and thrashing about the bed. History is otherwise limited secondary to patient's condition at time of presentation. TRAVEL OUTSIDE OF THE [place] IN LAST 30 DAYS: No - Related Data Allergies/Adverse Reactions: Heparin Analogues [Heparin Agents] Allergy (Verified 03/30/17 18:41) latex [Latex] Allergy (Verified 03/30/17 18:41) TROUBLE BREATHING, RED RASH meperidine HCl [From Demerol] Allergy (Verified 03/30/17 18:41) morphine [Morphine] Allergy (Verified 03/30/17 18:41) ondansetron HCl [From Zofran] Allergy (Verified 03/30/17 18:41) scopolamine Allergy (Verified 03/30/17 18:41) promethazine HCl [From Phenergan] Adverse Reaction (Verified 03/30/17 18:41) Past Medical History - General Information source: Transfer Record, Emergency Med Personnel, [facility] Records Cannot obtain history due to: Uncooperative, Altered mental status - Social History Smoking Status: Unknown if Ever Smoked Frequency of alcohol use: None Drug Abuse: None Lives with: Spouse/Significant other Family History: Reviewed & Not Pertinent - Past Medical History Cardiac Medical History: Reports: Hx Hypertension Denies: Hx Coronary Artery Disease, Hx Heart Attack Pulmonary Medical History: Reports: Hx Asthma - EXERCISE INDUCED Denies: Hx Bronchitis, Hx COPD, Hx Pneumonia Neurological Medical History: Reports: Hx Seizures. Denies: Hx Cerebrovascular Accident Renal/ Medical History: Denies: Hx Peritoneal Dialysis GI Medical History: Reports: Hx Gastroesophageal Reflux Disease Musculoskeltal Medical History: Reports Hx Arthritis Psychiatric Medical History: Reports: Hx Attention Deficit Hyperactivity Disorder Past Surgical History: Reports: Hx Abdominal Surgery - EXPLORATORY LAP, Hx Appendectomy, Hx Breast Surgery - LUMPS UNDER ARMS BILAT, Hx Section - X3, Hx Cholecystectomy, Hx Gynecologic Surgery - R OVARY, UTERUS REPAIR, Hx Orthopedic Surgery - L WRIST SCREW, ULNAR NERVE, Hx Tubal Ligation, Other - H/S with uterine scar removed and apparent drain/balloon placement per pt - Immunizations Hx Diphtheria, Pertussis, Tetanus Vaccination: Yes - unknown Review of Systems - Review of Systems -: Yes ROS unobtainable due to patient's medical condition Physical Exam - Vital signs Vitals: Resp Pulse Ox 29 H 98 04/25/17 21:47 04/25/17 21:47 Interpretation: Tachypneic Notes: PHYSICAL EXAMINATION: GENERAL: Thrashing around the bed, having a pseudoseizure HEAD: Atraumatic, normocephalic. EYES: Pupils equal round and reactive to light, sclera anicteric, conjunctiva are normal. ENT: nares patent, oropharynx clear without exudates. Moist mucous membranes. NECK: supple without lymphadenopathy LUNGS: Breath sounds clear to auscultation bilaterally and equal. No wheezes rales or rhonchi. HEART: Regular rate and rhythm without murmurs ABDOMEN: Soft, nontender, normoactive bowel sounds. No guarding, no rebound. No masses appreciated. EXTREMITIES: Normal range of motion, no pitting or edema. No cyanosis. NEUROLOGICAL: Moves all extremities spontaneously and will follow commands in all 4 extremities PSYCH: Highly anxious, crying out SKIN: Warm, Dry, normal turgor, no rashes or lesions noted. 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 Clinical history is inconsistent with an epileptic seizure and I do not believe any imaging or labs as indicated. Neurologic exam unremarkable without any focal neurologic deficits. No trauma sustained during today's episode. The patient does have a history of similar episodes in the past as well as a psychiatric history. Her symptoms did resolve after receiving IV haloperidol. At this time will discharge with return precautions and follow-up recommendations. Verbal discharge instructions given a the bedside and opportunity for questions given. Medication warnings reviewed. Patient is in agreement with this plan and has verbalized understanding of return precautions and the need for primary care follow-up in the next 24-72 hours. - Vital Signs Vital signs: Temp Pulse Resp BP Pulse Ox 15 98/66 L 96 04/26/17 00:03 04/26/17 00:05 04/26/17 00:03 Discharge - Discharge Clinical Impression: Pseudoseizure Condition: Good Disposition: HOME, SELF-CARE Additional Instructions: Your episode of shaking today was likely due to something called PNES, also known as pseudogenic non-epileptiform seizures. These are often also often referred to as pseudoseizures. These are not voluntary. However, they are not coming from an abnormal focus in your brain like somebody who has true epilepsy. These episodes can often be triggered by stress, anxiety, or not taking your normal medications. Please follow-up with your primary care doctor at your earliest ability. Return for any additional concerns you may have including if you develop a fever, nausea, vomiting, pass out, have focal weakness or numbness, or any other symptoms that are concerning to you.
[2017-04-26 00:11] VITALS: BP 98/66
== END 2017-04-26 00:11 | disposition home or self-care (01) ==
LOC: ER 21:40
DX: G40.89 Other seizures (principal); R41.82 Altered mental status, unspecified; I10 Essential (primary) hypertension; Z91.040 Latex allergy status; Z88.6 Allergy status to analgesic agent; Z90.49 Acquired absence of other specified parts of digestive tract; Z98.51 Tubal ligation status
CPT/HCPCS: 99284; 96374; J1630

== ENCOUNTER 2017-10-24 13:24 | Emergency (ER) | payer OTHER ==
[2017-10-24] MEDS ORDERED: KETOROLAC TROMETHAMINE 60 MG/2 ML SDV IM ONE (14:10)
--- NOTE | 2017-10-24 14:11 | ER Document Report ---
ED Medical Screen (RME) - General Chief Complaint: Flank Pain Stated Complaint: FLANK PAIN Time Seen by Provider: 10/24/17 14:06 Notes: 37 years old female with chronic medical problems, chronic pancreatitis, presents today with right lower abdomen and right flank pain for the last few days. Associated with nausea and vomited a few times. No fever chills no dysuria or frequency. Denies any hematuria On examination-stuttering, questionable right flank tenderness as well as right groin tenderness TRAVEL OUTSIDE OF THE [place] IN LAST 30 DAYS: No - Related Data Allergies/Adverse Reactions: Heparin Analogues [Heparin Agents] Allergy (Verified 03/30/17 18:41) latex [Latex] Allergy (Verified 03/30/17 18:41) TROUBLE BREATHING, RED RASH meperidine HCl [From Demerol] Allergy (Verified 03/30/17 18:41) morphine [Morphine] Allergy (Verified 03/30/17 18:41) ondansetron HCl [From Zofran] Allergy (Verified 03/30/17 18:41) scopolamine Allergy (Verified 03/30/17 18:41) promethazine HCl [From Phenergan] Adverse Reaction (Verified 03/30/17 18:41) Past Medical History - Social History Chew tobacco use (# tins/day): No Frequency of alcohol use: Occasional Drug Abuse: None - Past Medical History Cardiac Medical History: Reports: Hx Hypertension Denies: Hx Coronary Artery Disease, Hx Heart Attack Pulmonary Medical History: Reports: Hx Asthma - EXERCISE INDUCED Denies: Hx Bronchitis, Hx COPD, Hx Pneumonia Neurological Medical History: Reports: Hx Seizures. Denies: Hx Cerebrovascular Accident Renal/ Medical History: Denies: Hx Peritoneal Dialysis GI Medical History: Reports: Hx Gastroesophageal Reflux Disease Musculoskeltal Medical History: Reports Hx Arthritis Psychiatric Medical History: Reports: Hx Attention Deficit Hyperactivity Disorder Past Surgical History: Reports: Hx Abdominal Surgery - EXPLORATORY LAP, Hx Appendectomy, Hx Breast Surgery - LUMPS UNDER ARMS BILAT, Hx Section - X3, Hx Cholecystectomy, Hx Gynecologic Surgery - R OVARY, UTERUS REPAIR, Hx Orthopedic Surgery - L WRIST SCREW, ULNAR NERVE, Hx Tubal Ligation, Other - H/S with uterine scar removed and apparent drain/balloon placement per pt - Immunizations Hx Diphtheria, Pertussis, Tetanus Vaccination: Yes - unknown Physical Exam - Vital signs Vitals: Temp Pulse Resp BP Pulse Ox 97.9 F 111 H 14 102/67 100 10/24/17 13:30 10/24/17 13:30 10/24/17 13:30 10/24/17 13:30 10/24/17 13:30 Course - Vital Signs Vital signs: Temp Pulse Resp BP Pulse Ox 97.9 F 111 H 14 102/67 100 10/24/17 13:30 10/24/17 13:30 10/24/17 13:30 10/24/17 13:30 10/24/17 13:30
[2017-10-24] MEDS ORDERED: KETOROLAC TROMETHAMINE 60 MG/2 ML SDV ONE (14:28)
[2017-10-24 15:33] LABS: APPEARANCE,URINE SLIGHTLY-CLOUDY; BILIRUBIN,URINE NEGATIVE (NEGATIVE); COLOR,URINE YELLOW; GLUCOSE, URINE NEGATIVE (NEGATIVE); KETONES,URINE NEGATIVE (NEGATIVE); LEUKOCYTE ESTERASE,URINE NEGATIVE (NEGATIVE); NITRITE,URINE NEGATIVE (NEGATIVE); PROTEIN,URINE NEGATIVE (NEGATIVE); URINE SPECIFIC GRAVITY 1.019; UROBILINOGEN,URINE NEGATIVE mg/dL (<2.0)
[2017-10-24 15:39] LABS: ABSOLUTE BASOPHILS # (AUTO) 0.1 10^3/uL (0.0-0.2); ABSOLUTE EOSINOPHILS # (AUTO) 0.1 10^3/uL (0.0-0.6); ABSOLUTE LYMPHOCYTES (AUTO) 2.4 10^3/uL (0.5-4.7); ABSOLUTE MONOCYTES (AUTO) 0.3 10^3/uL (0.1-1.4); ABSOLUTE NEUT (AUTO) 2.3 10^3/uL (1.7-8.2); EOSINOPHILS % (AUTO) 2.5 % (0-6); HEMATOCRIT 43.4 % (36.0-47.0); HEMOGLOBIN 14.8 g/dL (12.0-15.5); LYMPHOCYTES % (AUTO) 45.5 % (13-45); MEAN CORPUSCULAR HEMOGLOBIN 33.9 pg (27.0-33.4); MEAN CORPUSCULAR HGB CONC 34.2 g/dL (32.0-36.0); MEAN CORPUSCULAR VOLUME 99 fl (80-97); MONOCYTES % (AUTO) 6.2 % (3-13); PLATELET COUNT 272 10^3/uL (150-450); RED BLOOD COUNT 4.37 10^6/uL (3.72-5.28); RED CELL DISTRIBUTION WIDTH 13.5 % (11.5-14.0); SEGMENTED NEUTROPHILS % (AUTO) 44.8 % (42-78); TOTAL CELLS COUNTED % (AUTO) 100 %; WHITE BLOOD COUNT 5.2 10^3/uL (4.0-10.5)
[2017-10-24] MEDS ORDERED: OXYCODONE-ACETAMINOPHEN 5-325 MG TABLET PO ONE ×3 (15:41→22:36)
[2017-10-24 15:48] LABS: URINE AMPHETAMINES SCREEN UNCONFIRMED POSITIVE; URINE BARBITURATES SCREEN NEGATIVE; URINE BENZODIAZEPINES SCREEN NEGATIVE; URINE COCAINE SCREEN NEGATIVE; URINE MARIJUANA (THC) SCREEN UNCONFIRMED POSITIVE; URINE METHADONE SCREEN NEGATIVE; URINE PHENCYCLIDINE SCREEN NEGATIVE
--- NOTE | 2017-10-24 15:52 | ER Document Report ---
ED GI/ - General Chief Complaint: Flank Pain Stated Complaint: FLANK PAIN Time Seen by Provider: 10/24/17 14:06 Notes: Patient is a 29-year-old female who presents with chief complaint of right- sided abdominal pain and flank pain that started on Sunday morning. Patient reports that she has a history of pancreatitis. Patient reports that the pain fluctuates in intensity. Patient has medical history of appendectomy and cholecystectomy. Patient denies any urinary symptoms or fever. Patient does report some nausea denies any vomiting or diarrhea. TRAVEL OUTSIDE OF THE [place] IN LAST 30 DAYS: No - Related Data Allergies/Adverse Reactions: Heparin Analogues [Heparin Agents] Allergy (Verified 03/30/17 18:41) latex [Latex] Allergy (Verified 03/30/17 18:41) TROUBLE BREATHING, RED RASH meperidine HCl [From Demerol] Allergy (Verified 03/30/17 18:41) morphine [Morphine] Allergy (Verified 03/30/17 18:41) ondansetron HCl [From Zofran] Allergy (Verified 03/30/17 18:41) scopolamine Allergy (Verified 03/30/17 18:41) promethazine HCl [From Phenergan] Adverse Reaction (Verified 03/30/17 18:41) Past Medical History - General Information source: Patient - Social History Smoking Status: Current Some Day Smoker Chew tobacco use (# tins/day): No Frequency of alcohol use: Occasional Drug Abuse: None Family History: Reviewed & Not Pertinent Patient has suicidal ideation: No Patient has homicidal ideation: No - Past Medical History Cardiac Medical History: Reports: Hx Hypertension Denies: Hx Coronary Artery Disease, Hx Heart Attack Pulmonary Medical History: Reports: Hx Asthma - EXERCISE INDUCED Denies: Hx Bronchitis, Hx COPD, Hx Pneumonia Neurological Medical History: Reports: Hx Seizures. Denies: Hx Cerebrovascular Accident Renal/ Medical History: Denies: Hx Peritoneal Dialysis GI Medical History: Reports: Hx Gastroesophageal Reflux Disease Musculoskeletal Medical History: Reports Hx Arthritis Psychiatric Medical History: Reports: Hx Attention Deficit Hyperactivity Disorder Past Surgical History: Reports: Hx Abdominal Surgery - EXPLORATORY LAP, Hx Appendectomy, Hx Breast Surgery - LUMPS UNDER ARMS BILAT, Hx Section - X3, Hx Cholecystectomy, Hx Gynecologic Surgery - R OVARY, UTERUS REPAIR, Hx Orthopedic Surgery - L WRIST SCREW, ULNAR NERVE, Hx Tubal Ligation, Other - H/S with uterine scar removed and apparent drain/balloon placement per pt - Immunizations Hx Diphtheria, Pertussis, Tetanus Vaccination: Yes - unknown Review of Systems - Review of Systems Constitutional: No symptoms reported EENT: No symptoms reported Cardiovascular: No symptoms reported Respiratory: No symptoms reported Gastrointestinal: See HPI Genitourinary: No symptoms reported Female Genitourinary: No symptoms reported Musculoskeletal: No symptoms reported Skin: No symptoms reported Hematologic/Lymphatic: No symptoms reported Neurological/Psychological: No symptoms reported Physical Exam - Vital signs Vitals: Temp Pulse Resp BP Pulse Ox 97.9 F 111 H 14 102/67 100 10/24/17 13:30 10/24/17 13:30 10/24/17 13:30 10/24/17 13:30 10/24/17 13:30 - Notes Notes: PHYSICAL EXAMINATION: GENERAL: Well-appearing, well-nourished and in no acute distress. HEAD: Atraumatic, normocephalic. EYES: Pupils equal round and reactive to light, extraocular movements intact, conjunctiva are normal. ENT: Nares patent, oropharynx clear without exudates. Moist mucous membranes. NECK: Normal range of motion, supple without lymphadenopathy LUNGS: Breath sounds clear to auscultation bilaterally and equal. No wheezes rales or rhonchi. HEART: Regular rate and rhythm without murmurs ABDOMEN: Soft, ondistended abdomen, tenderness to palpation to right lower quadrant. No guarding, no rebound. No masses appreciated. Female : Speculum exam reveals moderate amount of white discharge, no adnexal tenderness, no cervical motion tenderness. Musculoskeletal: Normal range of motion, no pitting or edema. No cyanosis. NEUROLOGICAL: Cranial nerves grossly intact. Normal speech, normal gait. Normal sensory, motor exams PSYCH: Normal mood, normal affect. SKIN: Warm, Dry, normal turgor, no rashes or lesions noted. Course - Re-evaluation Re-evalutation: CT abdomen pelvis and transvaginal ultrasound are both unremarkable for any acute findings. Patient has not vomited while in the department. - Vital Signs Vital signs: Temp Pulse Resp BP Pulse Ox 98.4 F 72 16 102/59 L 100 10/24/17 22:15 10/24/17 22:15 10/24/17 22:15 10/24/17 22:15 10/24/17 22:15 - Laboratory Result Diagrams: 10/24/17 14:23 10/24/17 14:23 Laboratory results interpreted by me: 10/24/17 10/24/17 14:23 14:23 MCV 99 H MCH 33.9 H Lymphocytes % 45.5 H Lipase 914.5 H Discharge - Discharge Clinical Impression: Pancreatitis Qualifiers: Chronicity: chronic Pancreatitis type: other Qualified Code(s): K86.1 - Other chronic pancreatitis Abdominal pain Qualifiers: Abdominal location: right lower quadrant Qualified Code(s): R10.31 - Right lower quadrant pain Condition: Stable Disposition: HOME, SELF-CARE Additional Instructions: Pancreatitis Pancreatitis is an inflammation of the pancreas, an organ at the back of your abdomen. The pancreas produces insulin and enzymes that digest your food. Pancreatitis can be caused by gallstones in the bile duct, by alcohol or viruses, or by excess fat or calcium in the blood stream. Occasionally, pancreatitis occurs when a stomach ulcer justice through into the pancreas. We try to find the cause of pancreatitis, but some tests can't be done until the pancreas heals. The usual symptoms of pancreatitis are pain in the pit of the stomach that goes straight through to the back, vomiting, and low-grade fever. Severe cases require hospital admission, but many patients with mild pancreatitis do well at home. You will probably need medicine for pain and for vomiting. Sometimes we prescribe medicine to decrease stomach acid secretion and to decrease flow of pancreatic juices. Start with a diet of clear liquids (soda pop, juices). When the pain is decreasing, you can add some simple starches (potato, toast, applesauce). Avoid proteins and fats until you are completely painfree. When you're better, your doctor may suggest treatment to prevent future pancreatitis (such as gallbladder removal). Avoid alcohol forever. Get immediate treatment for any future episodes. Contact your doctor at once or return here if you have increasing pain, shortness of breath, general swelling, increasing size of the abdomen, continued vomiting, muscle spasms, or other new symptoms. Please use over-the- counter Benadryl for the nausea as you are allergic to essentially all other antiemetics. Prescriptions: Oxycodone HCl/Acetaminophen [Percocet 5-325 mg Tablet] 1 - 2 tab PO Q4H PRN #15 tablet PRN Reason: Forms: Return to Work Referrals: NORA CASANOVA DO [Primary Care Provider] - Follow up as needed
[2017-10-24 15:58] LABS: ALANINE AMINOTRANSFERASE 20 U/L (9-52); ALBUMIN 4.8 g/dL (3.5-5.0); ALKALINE PHOSPHATASE 51 U/L (38-126); ANION GAP 13 (5-19); ASPARTATE AMINO TRANSFERASE 25 U/L (14-36); BILIRUBIN,DIRECT 0.3 mg/dL (0.0-0.4); BILIRUBIN,TOTAL 0.4 mg/dL (0.2-1.3); BLOOD UREA NITROGEN 9 mg/dL (7-20); CALCIUM 9.4 mg/dL (8.4-10.2); CARBON DIOXIDE 22 mmol/L (22-30); CHLORIDE 106 mmol/L (98-107); GLUCOSE 96 mg/dL (75-110); LIPASE 914.5 U/L (23-300); POTASSIUM 4.1 mmol/L (3.6-5.0)
--- NOTE | 2017-10-24 17:44 | RADIOLOGY REPORT (SQ) ---
EXAM DESCRIPTION: U/S NON OB PEL TV W/DOPPLER COMPLETED DATE/TIME: 10/24/2017 5:35 pm REASON FOR STUDY: right pelvic pain COMPARISON: None. TECHNIQUE: Dynamic and static grayscale images acquired of the pelvis via transvaginal approach and recorded on PACS. Additional selected color Doppler and spectral images recorded. LIMITATIONS: None. FINDINGS: UTERUS: Contour normal. No mass. ENDOMETRIAL STRIPE: No focal or generalized thickening. No masses. CERVIX: No nabothian cysts. RIGHT OVARY AND DOPPLER: Ovary not visualized. LEFT OVARY AND DOPPLER: Ovary not visualized. FREE FLUID: Fluid in the cul de sac. OTHER: No other significant finding. IMPRESSION: Normal uterus. Fluid in the cul de sac. TECHNICAL DOCUMENTATION: JOB ID: [id number] [email or web address]- All Rights Reserved Rev-07/27 Reading location - IP/workstation name: [email or web address]
[2017-10-24] MEDS ORDERED: NORMAL SALINE 1000 ML 1,000 ML IV ONE (18:50)
[2017-10-24] MEDS ORDERED: DIPHENHYDRAMINE HCL 50 MG/ML VIAL IV ONE (18:51)
[2017-10-24 19:05] LABS: RBCS (WET MOUNT) NO RBCS SEEN; T.VAGINALIS (WET MOUNT) NO TRICHOMONAS SEEN; WBCS (WET MOUNT) NO WBCS SEEN; YEAST (WET MOUNT) NO YEAST SEEN
[2017-10-24 20:38] LABS: CHLAM PCR NOT DETECTED (NOT DETECT); GON PCR NOT DETECTED (NOT DETECT)
--- NOTE | 2017-10-24 20:52 | RADIOLOGY REPORT (SQ) ---
EXAM DESCRIPTION: CT ABD/PELVIS WITH IV ONLY COMPLETED DATE/TIME: 10/24/2017 8:43 pm REASON FOR STUDY: abd pain, elevated lipase COMPARISON: None. TECHNIQUE: CT scan of the abdomen and pelvis performed using helical scanning technique with dynamic intravenous contrast injection. No oral contrast. Images reviewed with lung, soft tissue, and bone windows. Reconstructed coronal and sagittal MPR images reviewed. Delayed images for evaluation of the urinary system also acquired. All images stored on PACS. All CT scanners at this facility use dose modulation, iterative reconstruction, and/or weight based d osing when appropriate to reduce radiation dose to as low as reasonably achievable (ALARA). [facility]: Dose Right [facility]: CareDose [facility]: Dose Right [facility]: Teradose 4D [facility]: [facility] CONTRAST TYPE AND DOSE: contrast/concentration: Isovue 350.00 mg/ml; Total Contrast Delivered: 56.0 ml; Total Saline Delivered: 32.0 ml RENAL FUNCTION: None required. The patient is less than 50 years old. RADIATION DOSE: CT Rad equipment meets quality standard of care and radiation dose reduction techniq ues were employed. CTDIvol: 4.8 - 4.8 mGy. DLP: 443 mGy-cm.. LIMITATIONS: None. FINDINGS: LOWER CHEST: No significant findings. No nodules or infiltrates. LIVER: Normal size. No masses. No dilated ducts. SPLEEN: Normal size. No focal lesions. PANCREAS: No masses. No significant calcifications. No adjacent inflammation or peripancreatic fluid collections. Pancreatic duct not dilated. GALLBLADDER: Surgically absent. ADRENAL GLANDS: No significant masses or asymmetry. RIGHT KIDNEY AND URETER: No solid masses. No significant calcifications. No hydronephrosis or hyd roureter. LEFT KIDNEY AND URETER: No solid masses. No significant calcifications. No hydronephrosis or hydr oureter. AORTA AND VESSELS: No aneurysm. No dissection. Renal arteries, SMA, celiac without stenosis. RETROPERITONEUM: No retroperitoneal adenopathy, hemorrhage or masses. BOWEL AND PERITONEAL CAVITY: No masses or inflammatory changes. No free fluid or peritoneal masses. APPENDIX: Surgically absent. PELVIS: Marked venous varicosities in the left pelvis with a markedly dilated left ovarian vein. No thrombus. ABDOMINAL WALL: No masses. No hernias. BONES: No significant or acute findings. OTHER: No other significant finding. IMPRESSION: Findings in the left pelvis compatible with pelvic congestion syndrome. Marked varicosi ties and dilated left ovarian vein. No acute findings. TECHNICAL DOCUMENTATION: JOB ID: [id number] Quality ID # [id number]: Final reports with documentation of one or more dose reduction techniques (e.g., Au tomated exposure control, adjustment of the mA and/or kV according to patient size, use of iterative reconstruction technique) 2010 [employer]- All Rights Reserved Reading location - IP/workstation name: [email or web address]
[2017-10-24 22:19] VITALS: BP 102/59
== END 2017-10-24 22:43 | disposition home or self-care (01) ==
LOC: ER 13:24
DX: K86.1 Other chronic pancreatitis (principal); R10.31 Right lower quadrant pain; R11.0 Nausea; Z90.49 Acquired absence of other specified parts of digestive tract; F17.200 Nicotine dependence, unspecified, uncomplicated; I10 Essential (primary) hypertension; J45.909 Unspecified asthma, uncomplicated
CPT/HCPCS: 99284; 96372; 96361; 96374; 36415; 87210; 83690; 85025; 81025; 80053; 81001; 80307; 87491; 87591; 76830; 93976; 74177; J1200; J1885; J7030

== ENCOUNTER 2017-10-30 11:34 | Emergency (ER) | payer OTHER ==
[2017-10-30] MEDS ORDERED: ONDANSETRON HCL INJ/PF 4 MG/2 ML SDV IV ONE (12:27)
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
[2017-10-30] MEDS: RINGERS SOLUTION,LACTATED 1,000 ML IV PRN ×2 (13:01→15:54)
[2017-10-30 13:03] LABS: ABSOLUTE EOSINOPHILS # (AUTO) 0.1 10^3/uL (0.0-0.6); ABSOLUTE MONOCYTES (AUTO) 0.3 10^3/uL (0.1-1.4); ABSOLUTE NEUT (AUTO) 2.2 10^3/uL (1.7-8.2); BASOPHILS % (AUTO) 0.9 % (0-2); EOSINOPHILS % (AUTO) 2.3 % (0-6); HEMATOCRIT 45.8 % (36.0-47.0); HEMOGLOBIN 15.5 g/dL (12.0-15.5); LYMPHOCYTES % (AUTO) 43.5 % (13-45); MEAN CORPUSCULAR HEMOGLOBIN 33.5 pg (27.0-33.4); MEAN CORPUSCULAR HGB CONC 33.9 g/dL (32.0-36.0); MEAN CORPUSCULAR VOLUME 99 fl (80-97); MONOCYTES % (AUTO) 6.2 % (3-13); PLATELET COUNT 261 10^3/uL (150-450); RED BLOOD COUNT 4.64 10^6/uL (3.72-5.28); RED CELL DISTRIBUTION WIDTH 13.2 % (11.5-14.0); SEGMENTED NEUTROPHILS % (AUTO) 47.1 % (42-78); TOTAL CELLS COUNTED % (AUTO) 100 %; WHITE BLOOD COUNT 4.6 10^3/uL (4.0-10.5)
[2017-10-30 13:13] LABS: APPEARANCE,URINE SLIGHTLY-CLOUDY; BILIRUBIN,URINE NEGATIVE (NEGATIVE); GLUCOSE, URINE NEGATIVE (NEGATIVE); KETONES,URINE TRACE mg/dL (NEGATIVE); LEUKOCYTE ESTERASE,URINE NEGATIVE (NEGATIVE); NITRITE,URINE NEGATIVE (NEGATIVE); PROTEIN,URINE 30 mg/dL (NEGATIVE); URINE SPECIFIC GRAVITY 1.033
[2017-10-30] MEDS ORDERED: DIPHENHYDRAMINE HCL 50 MG/ML VIAL IV ONE (13:14)
[2017-10-30 13:15] LABS: COLOR,URINE YELLOW
[2017-10-30 13:20] LABS: URINE AMPHETAMINES SCREEN UNCONFIRMED POSITIVE; URINE BARBITURATES SCREEN NEGATIVE; URINE BENZODIAZEPINES SCREEN NEGATIVE; URINE COCAINE SCREEN NEGATIVE; URINE MARIJUANA (THC) SCREEN UNCONFIRMED POSITIVE; URINE METHADONE SCREEN NEGATIVE; URINE PHENCYCLIDINE SCREEN NEGATIVE
[2017-10-30 13:23] LABS: ALANINE AMINOTRANSFERASE 15 U/L (9-52); ALKALINE PHOSPHATASE 56 U/L (38-126); ANION GAP 14 (5-19); ASPARTATE AMINO TRANSFERASE 37 U/L (14-36); BILIRUBIN,DIRECT 0.3 mg/dL (0.0-0.4); BILIRUBIN,TOTAL 0.5 mg/dL (0.2-1.3); BLOOD UREA NITROGEN 13 mg/dL (7-20); CALCIUM 9.5 mg/dL (8.4-10.2); CARBON DIOXIDE 25 mmol/L (22-30); CHLORIDE 104 mmol/L (98-107); GLUCOSE 108 mg/dL (75-110); LIPASE 95.5 U/L (23-300); POTASSIUM 3.7 mmol/L (3.6-5.0); SODIUM 142.6 mmol/L (137-145); TOTAL PROTEIN 8.7 g/dL (6.3-8.2)
[2017-10-30 13:24] LABS: ALCOHOL < 10 mg/dL (NONE DETECTED)
[2017-10-30] MEDS ORDERED: OXYCODONE-ACETAMINOPHEN 5-325 MG TABLET PO ONE ×2 (14:08→17:38)
[2017-10-30] MEDS ORDERED: HYDROMORPHONE HCL INJ/PF 2 MG/ML AMPULE IV ONE (18:26)
--- NOTE | 2017-10-30 18:28 | PDOC CONSULTATION ---
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 She reports that she was seen in the ER for several day history of pelvic pain that she initially thought was an ovarian cyst. She also has chronic pancreatitis and was told last week that could be the cause of her pain. She returns today with continued worsening of the pain and also n/v and weight loss (12-15 #) over the last couple of weeks. She is unable to tolerate pain without IV narcotics and is having sig nausea and unable to tolerate intake without n/v Past Medical History Gynecological Infection: No Cardiac Medical History: Reports: Hypertension Denies: Coronary Artery Disease, Myocardial Infarction Pulmonary Medical History: Reports: Asthma - EXERCISE INDUCED Denies: Bronchitis, Chronic Obstructive Pulmonary Disease (COPD), Pneumonia Neurological Medical History: Reports: Seizures GI Medical History: Reports: Gastroesophageal Reflux Disease Musculoskeltal Medical History: Reports: Arthritis Psychiatric Medical History: Reports: Attention Deficit Hyperactivity Disorder Social History Information Source: Patient Lives with: Family Smoking Status: Former Smoker Frequency of Alcohol Use: Occasional Hx Recreational Drug Use: No Drugs: Marijuana, Other - amphetamines and THC on UDS Hx Prescription Drug Abuse: No Family History Family History: Reviewed & Not Pertinent Parental Family History Reviewed: No Children Family History Reviewed: NA Sibling(s) Family History Reviewed.: NA Medication/Allergy Home Medications: Clonazepam [Klonopin] 1 mg PO ASDIR PRN 03/17/16 Dextroamphetamine/Amphetamine [Adderall Xr 30 mg Capsule] 30 mg PO BID 10/30/17 Naproxen [Naproxen] 1 tab PO BID 10/30/17 Allergies/Adverse Reactions: Heparin Analogues [Heparin Agents] Allergy (Verified 03/30/17 18:41) latex [Latex] Allergy (Verified 03/30/17 18:41) TROUBLE BREATHING, RED RASH meperidine HCl [From Demerol] Allergy (Verified 03/30/17 18:41) morphine [Morphine] Allergy (Verified 03/30/17 18:41) ondansetron HCl [From Zofran] Allergy (Verified 03/30/17 18:41) scopolamine Allergy (Verified 03/30/17 18:41) promethazine HCl [From Phenergan] Adverse Reaction (Verified 03/30/17 18:41) Review of Systems Constitutional: PRESENT: anorexia, fatigue, weakness, weight loss Cardiovascular: ABSENT: chest pain, dyspnea on exertion, edema, orthropnea, palpitations Respiratory: ABSENT: cough, hemoptysis Gastrointestinal: PRESENT: abdominal pain, nausea, vomiting. ABSENT: constipation, diarrhea, hematemesis, hematochezia Integumentary: ABSENT: rash, wounds Neurological: PRESENT: as per HPI, abnormal speech, confusion, syncope - history of syncope Psychiatric: ABSENT: anxiety, depression, homidical ideation, suicidal ideation Endocrine: ABSENT: cold intolerance, heat intolerance, polydipsia, polyuria Hematologic/Lymphatic: ABSENT: easy bleeding, easy bruising Physical Exam - Physical Exam Vital Signs: Temp Pulse Resp BP Pulse Ox 97.6 F 115 H 20 89/57 L 100 10/30/17 17:26 10/30/17 17:26 10/30/17 17:26 10/30/17 17:26 10/30/17 17:26 Intake & Output 10/29/17 10/30/17 10/31/17 06:59 06:59 06:59 Intake Total 1000 Balance 1000 Weight 49.4 kg General appearance: PRESENT: no acute distress, cooperative, mild distress Head exam: PRESENT: atraumatic, normocephalic Respiratory exam: PRESENT: clear to auscultation nella, symmetrical, unlabored Cardiovascular exam: PRESENT: RRR. ABSENT: diastolic murmur, rubs, systolic murmur Vascular exam: PRESENT: normal capillary refill GI/Abdominal exam: PRESENT: guarding, normal bowel sounds, soft, tenderness - diffuse lower pelvic ttp. ABSENT: ascites, diminished bowel sounds, distended, firm, hernia, mass, Lazo's sign, organolmegaly, rebound, rigid Extremities exam: PRESENT: full ROM. ABSENT: calf tenderness, clubbing, pedal edema Musculoskeletal exam: PRESENT: ambulatory Neurological exam: PRESENT: alert, awake, oriented to person, oriented to place , oriented to time, oriented to situation, CN II-XII grossly intact. ABSENT: motor sensory deficit Psychiatric exam: PRESENT: anxious, appropriate affect Skin exam: PRESENT: dry, intact, warm. ABSENT: cyanosis, rash Result Laboratory Results: 10/30/17 12:31 10/30/17 12:31 10/30/17 10/30/17 10/30/17 12:31 12:31 12:31 WBC 4.6 RBC 4.64 Hgb 15.5 Hct 45.8 MCV 99 H MCH 33.5 H MCHC 33.9 RDW 13.2 Plt Count 261 Seg Neutrophils % 47.1 Lymphocytes % 43.5 Monocytes % 6.2 Eosinophils % 2.3 Basophils % 0.9 Absolute Neutrophils 2.2 Absolute Lymphocytes 2.0 Absolute Monocytes 0.3 Absolute Eosinophils 0.1 Absolute Basophils 0.0 Sodium 142.6 Potassium 3.7 Chloride 104 Carbon Dioxide 25 Anion Gap 14 BUN 13 Creatinine 0.94 Est GFR ( Amer) > 60 Est GFR (Non-Af Amer) > 60 Glucose 108 Calcium 9.5 Total Bilirubin 0.5 AST 37 H ALT 15 Alkaline Phosphatase 56 Total Protein 8.7 H Albumin 5.0 Lipase 95.5 Serum HCG, Qual NEGATIVE Urine Color Urine Appearance Urine pH Ur Specific Wheeler Urine Protein Urine Glucose (UA) Urine Ketones Urine Blood Urine Nitrite Ur Leukocyte Esterase Urine WBC (Auto) Urine RBC (Auto) 10/30/17 12:31 WBC RBC Hgb Hct MCV MCH MCHC RDW Plt Count Seg Neutrophils % Lymphocytes % Monocytes % Eosinophils % Basophils % Absolute Neutrophils Absolute Lymphocytes Absolute Monocytes Absolute Eosinophils Absolute Basophils Sodium Potassium Chloride Carbon Dioxide Anion Gap BUN Creatinine Est GFR ( Amer) Est GFR (Non-Af Amer) Glucose Calcium Total Bilirubin AST ALT Alkaline Phosphatase Total Protein Albumin Lipase Serum HCG, Qual Urine Color YELLOW Urine Appearance SLIGHTLY-CLOUDY Urine pH 5.0 Ur Specific Wheeler 1.033 Urine Protein 30 H Urine Glucose (UA) NEGATIVE Urine Ketones TRACE H Urine Blood NEGATIVE Urine Nitrite NEGATIVE Ur Leukocyte Esterase NEGATIVE Urine WBC (Auto) 2 Urine RBC (Auto) 2 Status: Image reviewed by me - significant varicosities and pelvic congestion on CT scan. US benign Assessment & Plan - Diagnosis (1) Pelvic congestion syndrome Is this a current diagnosis for this admission?: Yes Plan: CT and US reviewed from last week. pt reports increasing pain. Reviewed options for management - progesterone and IR procedure. Reviewed with patient that progesterone is not an acute treatment and unlikely to help with her pain. Pt with significant other comorbidities that may also be contributing to the pain such as chronic pancreatitis. Pt is trying to obtain care with physician at [facility] for chronic pancreatitis issue. Reviewed with patient that we could start progesterone but not an acute management versus transfer to another facility for specific IR treatment that would be able to actually treat her pain. Pt is in significant pain and unable to tolerate food so we discussed that would recommend admission but that admission here would not be able to provide IR intervention to treat her pain. Reviewed with patient that would recommend transfer to facility able to provide IR treatment for her pelvic congestion syndrome as well as her other medical issues that may be contributing to the severity of her pain. At this time she is unable to obtain relief via po pain meds and unable to keep po food/meds down and has noted a weight loss so outpatient treatment would not be of benefit to her. in order to provide timely effective treatment for her acute medical needs would recommend transfer to facility with IR capabilities. No e/o other cause for her severe pelvic pain at this time. Reviewed case with Dr. Manrique who agrees with transfer to facility with IR capabilities. - Time Time Spent: 30 to 50 Minutes Critical Time spent with patient: Less than 15 minutes Smoking Cessation Education: 3 to 10 minutes Medications reviewed and adjusted accordingly: Yes Anticipated discharge: Other Within: within 24 hours Disposition: to facility with IR capabilities - Inpatient Certification Based on my medical assessment, after consideration of the patient's comorbidities, presenting symptoms, or acuity I expect that the services needed warrant INPATIENT care.: Yes I certify that my determination is in accordance with my understanding of Medicare's requirements for reasonable and necessary INPATIENT services [42 CFR 412.3e].: Yes Medical Necessity: Need For IV Fluids, Need for Pain Control, Other - need for transfer to another facility for proper care
[2017-10-30 19:21] VITALS: BP 99/55
[2017-10-30] MEDS ORDERED: HYDROMORPHONE HCL 2 MG TABLET PO ONE (19:50)
[2017-10-30] MEDS ORDERED: PROMETHAZINE HCL 25 MG SUPP (4 SUPP/ER DISP) PR ONE (19:51)
== END 2017-10-30 20:15 | disposition home or self-care (01) ==
LOC: ER 11:34
DX: N94.89 Other specified conditions associated with female genital organs and menstrual cycle (principal); R10.11 Right upper quadrant pain; R11.2 Nausea with vomiting, unspecified; M25.519 Pain in unspecified shoulder; M54.9 Dorsalgia, unspecified; G89.29 Other chronic pain; R56.9 Unspecified convulsions; Z87.820 Personal history of traumatic brain injury; Z87.891 Personal history of nicotine dependence; I10 Essential (primary) hypertension; J45.909 Unspecified asthma, uncomplicated
CPT/HCPCS: 96376; 99284; 96361; 96374; 96375; 36415; 80307 ×2; 83690; 84703; 85025; 80053; 81001; J1200; J3490; J1170; J2405; J7120

== ENCOUNTER 2017-11-03 17:11 | Inpatient (IN) | payer OTHER ==
[2017-11-03] MEDS ORDERED: FENTANYL CITRATE INJ/PF 100 MCG/2 ML AMPUL IV ONE (18:36)
[2017-11-03] MEDS ORDERED: PROMETHAZINE HCL INJ 25 MG/1 ML VIAL IV ONE (18:36)
[2017-11-03] MEDS ORDERED: RINGERS SOLUTION,LACTATED 1,000 ML IV ONE (18:38)
--- NOTE | 2017-11-03 18:43 | ER Document Report ---
ED Medical Screen (RME) - General Chief Complaint: Abdominal Pain Stated Complaint: ABDOMINAL PAIN, VOMITING Time Seen by Provider: 11/03/17 18:30 TRAVEL OUTSIDE OF THE [place] IN LAST 30 DAYS: No - HPI Patient complains to provider of: Vomiting Onset: Other - This 37-year-old woman with history of chronic pancreatitis as well as Pretty, and the possible traumatic brain injury as well as a history of "so many surgeries have to count the scars" presents for evaluation of intractable abdominal pain and vomiting which is consistent with previous episodes of pancreatitis. She notes that she has been hospitalized previously for pancreatitis since being home had done okay with oral narcotic medication since running out his had horrific abdominal pain cramping pain radiating her back and inability to eat or drink. Nothing is seemed to make it any better, eating seems to make it worse. - Related Data Allergies/Adverse Reactions: Heparin Analogues [Heparin Agents] Allergy (Verified 11/03/17 17:16) latex [Latex] Allergy (Verified 11/03/17 17:16) TROUBLE BREATHING, RED RASH meperidine HCl [From Demerol] Allergy (Verified 11/03/17 17:16) morphine [Morphine] Allergy (Verified 11/03/17 17:16) ondansetron HCl [From Zofran] Allergy (Verified 11/03/17 17:16) scopolamine Allergy (Verified 11/03/17 17:16) promethazine HCl [From Phenergan] Adverse Reaction (Verified 11/03/17 17:16) Past Medical History - Past Medical History Cardiac Medical History: Reports: Hx Hypertension Denies: Hx Coronary Artery Disease, Hx Heart Attack Pulmonary Medical History: Reports: Hx Asthma - EXERCISE INDUCED Denies: Hx Bronchitis, Hx COPD, Hx Pneumonia Neurological Medical History: Reports: Hx Seizures. Denies: Hx Cerebrovascular Accident Renal/ Medical History: Denies: Hx Peritoneal Dialysis GI Medical History: Reports: Hx Gastroesophageal Reflux Disease Musculoskeltal Medical History: Reports Hx Arthritis Psychiatric Medical History: Reports: Hx Attention Deficit Hyperactivity Disorder Traumatic Medical History: Reports: Hx Traumatic Brain Injury Past Surgical History: Reports: Hx Abdominal Surgery - EXPLORATORY LAP, Hx Appendectomy, Hx Breast Surgery - LUMPS UNDER ARMS BILAT, Hx Section - X3, Hx Cholecystectomy, Hx Gynecologic Surgery - R OVARY, UTERUS REPAIR, Hx Orthopedic Surgery - L WRIST SCREW, ULNAR NERVE, Hx Tubal Ligation, Other - H/S with uterine scar removed and apparent drain/balloon placement per pt - Immunizations Hx Diphtheria, Pertussis, Tetanus Vaccination: Yes - unknown Physical Exam - Vital signs Vitals: Temp Pulse Resp BP Pulse Ox 98.3 F 122 H 16 100/62 100 11/03/17 17:18 11/03/17 17:18 11/03/17 17:18 11/03/17 17:18 11/03/17 17:18 Course - Re-evaluation Re-evalutation: 11/03/17 18:40 This 37-year-old female with a history of chronic pancreatitis as well as a myriad of other medical comorbidities and problems presents for evaluation of what seems to be potential exacerbation of underlying pancreatitis. Given her issues in the past as well as her multiple surgeries will plan for this patient to undergo chemistry, count, lipase, urinalysis administration of analgesia as well as fluids and nausea control. We will plan for reassessment and probable imaging. - Vital Signs Vital signs: Temp Pulse Resp BP Pulse Ox 98.3 F 122 H 16 100/62 100 11/03/17 17:18 11/03/17 17:18 11/03/17 17:18 11/03/17 17:18 11/03/17 17:18 Doctor's Discharge - Discharge Referrals: NORA CASANOVA DO [Primary Care Provider] - Follow up as needed
[2017-11-03] MEDS ORDERED: HALOPERIDOL LACTATE INJ 5 MG/1 ML VIAL IV ONE (19:46)
[2017-11-03 19:52] LABS: ALANINE AMINOTRANSFERASE 31 U/L (9-52); ALBUMIN 5.6 g/dL (3.5-5.0); ALKALINE PHOSPHATASE 77 U/L (38-126); ASPARTATE AMINO TRANSFERASE 30 U/L (14-36); BILIRUBIN,DIRECT 0.5 mg/dL (0.0-0.4); BILIRUBIN,TOTAL 0.6 mg/dL (0.2-1.3); BLOOD UREA NITROGEN 9 mg/dL (7-20); CALCIUM 11.1 mg/dL (8.4-10.2); GLUCOSE 79 mg/dL (75-110); LIPASE 57.5 U/L (23-300); POTASSIUM 5.4 mmol/L (3.6-5.0); TOTAL PROTEIN 9.6 g/dL (6.3-8.2)
[2017-11-03 19:53] LABS: ABSOLUTE LYMPHOCYTES (AUTO) 0.7 10^3/uL (0.5-4.7); ABSOLUTE MONOCYTES (AUTO) 0.1 10^3/uL (0.1-1.4); ABSOLUTE NEUT (AUTO) 8.6 10^3/uL (1.7-8.2); BASOPHILS % (AUTO) 0.1 % (0-2); HEMOGLOBIN 17.8 g/dL (12.0-15.5); LYMPHOCYTES % (AUTO) 7.1 % (13-45); MEAN CORPUSCULAR HEMOGLOBIN 33.9 pg (27.0-33.4); MEAN CORPUSCULAR HGB CONC 34.2 g/dL (32.0-36.0); MEAN CORPUSCULAR VOLUME 99 fl (80-97); MONOCYTES % (AUTO) 1.3 % (3-13); PLATELET COUNT 358 10^3/uL (150-450); RED BLOOD COUNT 5.24 10^6/uL (3.72-5.28); RED CELL DISTRIBUTION WIDTH 13.1 % (11.5-14.0); SEGMENTED NEUTROPHILS % (AUTO) 91.5 % (42-78); TOTAL CELLS COUNTED % (AUTO) 100 %; WHITE BLOOD COUNT 9.3 10^3/uL (4.0-10.5)
[2017-11-03 20:03] LABS: ANION GAP 33 (5-19); CHLORIDE 102 mmol/L (98-107); SODIUM 143.5 mmol/L (137-145)
[2017-11-03 20:05] LABS: CARBON DIOXIDE 9 mmol/L (22-30)
[2017-11-03] MEDS ORDERED: NORMAL SALINE 1000 ML 1,000 ML IV ONE (20:32)
--- NOTE | 2017-11-03 20:35 | ER Document Report ---
ED General - General Chief Complaint: Abdominal Pain Stated Complaint: ABDOMINAL PAIN, VOMITING Time Seen by Provider: 11/03/17 18:30 Notes: Patient is a 37 year old female with a past medical history of cyclical vomiting , chronic abdominal pain, depression, anxiety, pseudoseizures, who presents with abdominal pain and vomiting that has been ongoing for the past 24 hours. The patient describes her abdominal pain as being diffuse, severe, stabbing in nature. Nothing improves or worsens the pain. She notes that has been associated with persistent, continuous vomiting over the entirety of the past 24 hours and that she has been completely unable to tolerate oral intake during that time. Notes a history of similar symptoms multiple times in the past which she relates to a history of chronic pancreatitis. Of note, the patient does not use insulin or pancreatic enzymes. She has not seen her general doctor regarding today's concerns. She denies fever, shortness of breath, cough , headache, neck pain or altered mental status. TRAVEL OUTSIDE OF THE [place] IN LAST 30 DAYS: No - Related Data Allergies/Adverse Reactions: Heparin Analogues [Heparin Agents] Allergy (Verified 11/03/17 17:16) latex [Latex] Allergy (Verified 11/03/17 17:16) TROUBLE BREATHING, RED RASH meperidine HCl [From Demerol] Allergy (Verified 11/03/17 17:16) morphine [Morphine] Allergy (Verified 11/03/17 17:16) ondansetron HCl [From Zofran] Allergy (Verified 11/03/17 17:16) scopolamine Allergy (Verified 11/03/17 17:16) promethazine HCl [From Phenergan] Adverse Reaction (Verified 11/03/17 17:16) Past Medical History - General Information source: Patient, Relative - Social History Smoking Status: Current Every Day Smoker Frequency of alcohol use: None Drug Abuse: None Lives with: Spouse/Significant other Family History: Reviewed & Not Pertinent Patient has suicidal ideation: No Patient has homicidal ideation: No - Past Medical History Cardiac Medical History: Reports: Hx Hypertension Denies: Hx Coronary Artery Disease, Hx Heart Attack Pulmonary Medical History: Reports: Hx Asthma - EXERCISE INDUCED Denies: Hx Bronchitis, Hx COPD, Hx Pneumonia Neurological Medical History: Reports: Hx Seizures. Denies: Hx Cerebrovascular Accident Renal/ Medical History: Denies: Hx Peritoneal Dialysis GI Medical History: Reports: Hx Gastroesophageal Reflux Disease Musculoskeletal Medical History: Reports Hx Arthritis Psychiatric Medical History: Reports: Hx Attention Deficit Hyperactivity Disorder Traumatic Medical History: Reports: Hx Traumatic Brain Injury Past Surgical History: Reports: Hx Abdominal Surgery - EXPLORATORY LAP, Hx Appendectomy, Hx Breast Surgery - LUMPS UNDER ARMS BILAT, Hx Section - X3, Hx Cholecystectomy, Hx Gynecologic Surgery - R OVARY, UTERUS REPAIR, Hx Orthopedic Surgery - L WRIST SCREW, ULNAR NERVE, Hx Tubal Ligation, Other - H/S with uterine scar removed and apparent drain/balloon placement per pt - Immunizations Hx Diphtheria, Pertussis, Tetanus Vaccination: Yes - unknown Review of Systems - Review of Systems Notes: Constitutional: Negative for fever. HENT: Negative for sore throat. Eyes: Negative for visual changes. Cardiovascular: Negative for chest pain. Respiratory: Negative for shortness of breath. Gastrointestinal: Positive for abdominal pain and vomiting Genitourinary: Negative for dysuria. Musculoskeletal: Negative for back pain. Skin: Negative for rash. Neurological: Negative for headaches, weakness or numbness. 10 point ROS negative except as marked above and in HPI. Physical Exam - Vital signs Vitals: Temp Pulse Resp BP Pulse Ox 98.3 F 122 H 16 100/62 100 11/03/17 17:18 11/03/17 17:18 11/03/17 17:18 11/03/17 17:18 11/03/17 17:18 Interpretation: Tachycardic Notes: PHYSICAL EXAMINATION: GENERAL: Appears uncomfortable and in pain HEAD: Atraumatic, normocephalic. EYES: Pupils equal round and reactive to light, extraocular movements intact, sclera anicteric, conjunctiva are normal. ENT: nares patent, oropharynx clear without exudates. Moderately dry mucous membranes. NECK: Normal range of motion, supple without lymphadenopathy LUNGS: Breath sounds clear to auscultation bilaterally and equal. No wheezes rales or rhonchi. HEART: Regular tachycardia without murmurs ABDOMEN: Soft, no focal tenderness, normoactive bowel sounds. No guarding, no rebound. No masses appreciated. EXTREMITIES: Normal range of motion, no pitting or edema. No cyanosis. NEUROLOGICAL: No focal neurological deficits. Moves all extremities spontaneously and on command. PSYCH: Highly anxious, tearful SKIN: Warm, Dry, normal turgor, no rashes or lesions noted. Course - Re-evaluation Re-evalutation: 11/03/17 20:33 Patient presents with dehydration, persistent vomiting, known history of cyclical vomiting and abdominal pain. Patient has a known history of THC abuse and have a very high suspicion for cannabis induced cyclical vomiting and abdominal pain. The patient reports a history of chronic pancreatitis but this does not appear to be a valid diagnosis as the patient does not have insulin- dependent diabetes, does not have to take pancreatic enzymes prior to eating, has normal lipase readings repeatedly. Moreover prior CT imaging of her abdomen pelvis does not show any calcifications to the pancreas which would be consistent with a chronic pancreatitis picture. The patient has a long- standing history of chronic recurrent abdominal pain and has had almost every removal organ taken out of her body including her gallbladder, her appendix, and she also reports possible ovarian resections. She has also had multiple exploratory laparoscopies due to recurrent abdominal pain. The patient also has a long-standing psychiatric history of pseudoseizures and anxiety. Her abdominal exam is benign without any focal areas of tenderness, rebound or guarding. Her laboratories show market dehydration, low bicarbonate consistent with persistent vomiting. The patient's degree of dehydration likely mandate hospitalization. She has had improvement of her abdominal pain and vomiting with IV haloperidol. 11/03/17 22:11 I have discussed with the hospitalist who has accepted the patient for admission. - Vital Signs Vital signs: Temp Pulse Resp BP Pulse Ox 99.2 F 84 14 107/67 100 11/04/17 01:18 11/04/17 01:18 11/04/17 01:18 11/04/17 01:18 11/04/17 01:18 - Laboratory Result Diagrams: 11/03/17 16:30 11/03/17 16:30 Laboratory results interpreted by me: 11/03/17 11/03/17 11/03/17 16:30 16:30 20:55 Hgb 17.8 H Hct 52.0 H MCV 99 H MCH 33.9 H Seg Neutrophils % 91.5 H Lymphocytes % 7.1 L Monocytes % 1.3 L Absolute Neutrophils 8.6 H Potassium 5.4 H Carbon Dioxide 9 L* Anion Gap 33 H Calcium 11.1 H Direct Bilirubin 0.5 H Total Protein 9.6 H Albumin 5.6 H Urine Protein 100 H Urine Ketones 80 H Urine Blood SMALL H - Diagnostic Test Radiology reviewed: Image reviewed, Reports reviewed Radiology results interpreted by me: 11/04/17 03:43 Abdominal 2 view: No evidence of obstruction or perforation Discharge - Discharge Clinical Impression: Metabolic acidosis, Dehydration, Chronic generalized abdominal pain Nausea and vomiting Qualifiers: Vomiting type: unspecified Vomiting Intractability: non-intractable Qualified Code(s): R11.2 - Nausea with vomiting, unspecified Condition: Fair Disposition: ADMITTED OBSERVATION Admitting Provider: Hospitalist Unit Admitted: Medical Floor
[2017-11-03 21:23] LABS: APPEARANCE,URINE SLIGHTLY-CLOUDY; BILIRUBIN,URINE NEGATIVE (NEGATIVE); COLOR,URINE YELLOW; GLUCOSE, URINE NEGATIVE (NEGATIVE); KETONES,URINE 80 mg/dL (NEGATIVE); LEUKOCYTE ESTERASE,URINE NEGATIVE (NEGATIVE); NITRITE,URINE NEGATIVE (NEGATIVE); PROTEIN,URINE 100 mg/dL (NEGATIVE); URINE SPECIFIC GRAVITY 1.019; UROBILINOGEN,URINE NEGATIVE mg/dL (<2.0)
--- NOTE | 2017-11-03 21:46 | RADIOLOGY REPORT (SQ) ---
EXAM DESCRIPTION: ABDOMEN 2 VIEWS COMPLETED DATE/TIME: 11/03/2017 9:35 pm REASON FOR STUDY: eval obstruction COMPARISON: CT 10/24/2017 NUMBER OF VIEWS: Two views. TECHNIQUE: Supine and erect/decubitus radiographic images of the abdomen acquired. LIMITATIONS: None. FINDINGS: FREE AIR: None. No abnormal gas collections. LUNG BASES: Clear. BOWEL GAS PATTERN: Nonobstructive pattern. No dilated loops or air fluid levels. CALCIFICATIONS: No suspicious calcifications. SOFT TISSUES: No gross mass or suggestion of organomegaly. HARDWARE: Cholecystectomy clips. BONES: No acute fracture. No worrisome bone lesions. OTHER: No other significant finding. IMPRESSION: NO RADIOGRAPHIC EVIDENCE FOR ACUTE ABDOMINAL DISEASE. TECHNICAL DOCUMENTATION: JOB ID: [id number] [employer] All Rights Reserved Reading location - IP/workstation name: [email or web address]
[2017-11-03] MEDS ORDERED: FAMOTIDINE 20 MG TABLET PO ONE (22:11)
[2017-11-03] MEDS ORDERED: ACETAMINOPHEN 325 MG TABLET PO PRN (22:42)
[2017-11-03] MEDS ORDERED: KETOROLAC TROMETHAMINE INJ/PF 30 MG/1 ML SDV IV PRN (22:50)
[2017-11-03] MEDS ORDERED: PANTOPRAZOLE SODIUM 40 MG VIAL IV ONE (23:05)
[2017-11-03] MEDS ORDERED: NORMAL SALINE 1000 ML 2,000 ML IV ONE (23:05)
[2017-11-03] MEDS: METOCLOPRAMIDE HCL INJ/PF 10 MG/2 ML SDV IV SCH (23:09)
--- NOTE | 2017-11-04 01:06 | PDOC H&P ---
History of Present Illness Admission Date/PCP: 11/03/17 22:24 NORA CASANOVA DO Patient complains of: abdominal pain History of Present Illness: TRAVIS HORVATH is a 37 year old female who comes to the emergency department complaining of 3-4 weeks of illness. Has been having intermittent nausea and nonbloody vomiting that has been severe today, also abdominal pain more intense in the epigastric area, radiated to her back, 10/10 intensity, states that she has history of chronic pancreatitis. Denies fever, complains of chills, denies shortness of breath, chest pain, diarrhea, dizziness, lightheadedness, urinary symptoms. In the ED, noted with severe dehydration. Patient has a known history of THC abuse with a high suspicious of cannabis induced cyclical vomiting, no urine drug screen done yet. Patient has long-standing history of recurrent abdominal pain has multiple abdominal surgeries with organ resections and multiple exploratory laparoscopies. She also has long standing psychiatric history with pseudoseizures and anxiety. Laboratory positive for anion gap metabolic acidosis and severe dehydration may require admission. CT abdomen does not show any calcification of the pancreas which would be consistent with chronic pancreatitis. Past Medical History Cardiac Medical History: Reports: Hypertension Denies: Coronary Artery Disease, Myocardial Infarction Pulmonary Medical History: Reports: Asthma - EXERCISE INDUCED Denies: Bronchitis, Chronic Obstructive Pulmonary Disease (COPD), Pneumonia Neurological Medical History: Reports: Seizures - Pseudoseizures GI Medical History: Reports: Gastroesophageal Reflux Disease Musculoskeltal Medical History: Reports: Arthritis Psychiatric Medical History: Reports: Attention Deficit Hyperactivity Disorder Traumatic Medical History: Reports: Traumatic Brain Injury Hematology: Reports: Anemia Past Surgical History Past Surgical History: Reports: Appendectomy, Section - X3, Cholecystectomy, Orthopedic Surgery - L WRIST SCREW, ULNAR NERVE, Tubal Ligation , Other - H/S with uterine scar removed and apparent drain/balloon placement per pt Social History Smoking Status: Current Every Day Smoker Frequency of Alcohol Use: Occasional Hx Recreational Drug Use: No Drugs: Marijuana, Other - amphetamines and THC on UDS Hx Prescription Drug Abuse: No Family History Family History: Reviewed & Not Pertinent Parental Family History Reviewed: No Children Family History Reviewed: NA Sibling(s) Family History Reviewed.: NA Medication/Allergy Home Medications: Clonazepam [Klonopin] 1 mg PO ASDIR PRN 03/17/16 Dextroamphetamine/Amphetamine [Adderall Xr 30 mg Capsule] 30 mg PO BID 10/30/17 Hydromorphone HCl [Dilaudid 2 mg Tablet] 2 mg PO Q4HP PRN #14 tablet 10/30/17 Naproxen [Naproxen] 1 tab PO BID 10/30/17 Promethazine HCl [Phenergan 25 mg Supp.rect] 25 mg CA Q4HP PRN #12 supp.rect Allergies/Adverse Reactions: Heparin Analogues [Heparin Agents] Allergy (Verified 11/03/17 17:16) latex [Latex] Allergy (Verified 11/03/17 17:16) TROUBLE BREATHING, RED RASH meperidine HCl [From Demerol] Allergy (Verified 11/03/17 17:16) morphine [Morphine] Allergy (Verified 11/03/17 17:16) ondansetron HCl [From Zofran] Allergy (Verified 11/03/17 17:16) scopolamine Allergy (Verified 11/03/17 17:16) promethazine HCl [From Phenergan] Adverse Reaction (Verified 11/03/17 17:16) Review of Systems Review of Systems: As outlined in the HPI, others negative Physical Exam Vital Signs: Temp Pulse Resp BP Pulse Ox 98.3 F 122 H 16 100/62 100 11/03/17 17:18 11/03/17 17:18 11/03/17 17:18 11/03/17 17:18 11/03/17 17:18 Intake & Output 11/02/17 11/03/17 11/04/17 06:59 06:59 06:59 Intake Total 1999 Balance 1999 Additional comments: General appearance: Well-developed, well-nourished, alert and cooperative, and appears to be in acute distress secondary to abdominal pain Head: Normocephalic Eyes: PEERL, EOMI, vision is grossly intact. Ears: External auditory canal and tympanic membranes clear, hearing grossly intact. Nose: No nasal discharge. Throat: Oral cavity and pharynx normal. No inflammation, swelling, exudate or lesions. Neck: Neck supple, nontender without lymphadenopathy, masses or thyromegaly. Cardiac: Normal S1 and S2. No S3, S4 or murmurs. Rhythm is regular. There is no peripheral edema, cyanosis or pallor. Extremities are warm and well perfused. Capillary refill is less than 2 seconds. No carotid bruits. Lungs: Clear to auscultation and percussion without rales, rhonchi, wheezing or diminished breath sounds. Not using accessory muscles. Abdomen: Positive bowel sounds. Soft. Nondistended, diffuse tenderness. No guarding or rebound. No masses. No hepatosplenomegaly Extremities: No significant deformity or joint abnormality. No edema. Peripheral pulses intact. No varicosities. Neurological: Cranial nerves II through XII grossly intact. Strength and sensation symmetric and intact throughout. Reflexes 2+ throughout. Skin: Skin normal color, texture and turgor with no lesions or eruptions, warm and dry. Psychiatric: The mental examination revealed the patient was oriented to person , place, and time. The patient seems very anxious Results Laboratory Results: 11/03/17 11/03/17 11/03/17 16:30 16:30 20:55 WBC 9.3 RBC 5.24 Hgb 17.8 H Hct 52.0 H MCV 99 H MCH 33.9 H MCHC 34.2 RDW 13.1 Plt Count 358 Seg Neutrophils % 91.5 H Lymphocytes % 7.1 L Monocytes % 1.3 L Eosinophils % 0.0 Basophils % 0.1 Absolute Neutrophils 8.6 H Absolute Lymphocytes 0.7 Absolute Monocytes 0.1 Absolute Eosinophils 0.0 Absolute Basophils 0.0 Sodium 143.5 Potassium 5.4 H Chloride 102 Carbon Dioxide 9 L* Anion Gap 33 H BUN 9 Creatinine 1.01 Est GFR ( Amer) > 60 Est GFR (Non-Af Amer) > 60 Glucose 79 Calcium 11.1 H Total Bilirubin 0.6 Direct Bilirubin 0.5 H Neonat Total Bilirubin Not Reportable Neonat Direct Bilirubin Not Reportable Neonat Indirect Bili Not Reportable AST 30 ALT 31 Alkaline Phosphatase 77 Total Protein 9.6 H Albumin 5.6 H Lipase 57.5 Urine Color YELLOW Urine Appearance SLIGHTLY-CLOUDY Urine pH 5.0 Ur Specific [place] 1.019 Urine Glucose (UA) NEGATIVE Urine Ketones 80 H Urine Blood SMALL H Urine Nitrite NEGATIVE Urine Bilirubin NEGATIVE Urine Urobilinogen NEGATIVE Ur Leukocyte Esterase NEGATIVE Urine WBC (Auto) 1 Urine RBC (Auto) 1 U Hyaline Cast (Auto) 4 Squamous Epi Cells Auto 1 Urine Mucus (Auto) RARE Urine Ascorbic Acid NEGATIVE Urine HCG, Qual NEGATIVE Impressions: Abdomen X-Ray 11/03/17 20:33 IMPRESSION: NO RADIOGRAPHIC EVIDENCE FOR ACUTE ABDOMINAL DISEASE. Assessment & Plan - Diagnosis (1) Metabolic acidosis Is this a current diagnosis for this admission?: Yes Plan: She comes to the emergency department with persistent nausea and vomiting, anion gap 33 with bicarbonate of 9. Secondary to severe dehydration. We will go ahead and give her aggressive IV fluids hydration, 3 L IV bolus followed by 1 25 cc/h. Repeat labs in the morning. (2) Nausea and vomiting Qualifiers: Vomiting type: unspecified Vomiting Intractability: non-intractable Qualified Code(s): R11.2 - Nausea with vomiting, unspecified Is this a current diagnosis for this admission?: Yes Plan: Patient has history of times in the past, it is felt that this is secondary to her use of marijuana and is cyclical vomiting. Urine drug screen is pending. I will place her on Reglan 10 mg IV every 6 hours and IV fluids as listed before. (3) Abdominal pain Qualifiers: Abdominal location: epigastric Qualified Code(s): R10.13 - Epigastric pain Is this a current diagnosis for this admission?: Yes Plan: Patient has history of chronic abdominal pain with multiple abdominal surgeries , patient states that she has chronic pancreatitis but there is not information that supports this diagnosis. Be on medication as needed and repeat labs in the morning. CT abdomen so far negative for any acute event. (4) Hyperkalemia Is this a current diagnosis for this admission?: Yes Plan: Potassium 5.4, this will likely resolve after IV fluids hydration. Repeat potassium in the morning. Patient also has hemoconcentration with hemoglobin 17 and hematocrit of 52. - Time Time Spent: 30 to 50 Minutes
[2017-11-04 01:53] LABS: URINE AMPHETAMINES SCREEN UNCONFIRMED POSITIVE; URINE BARBITURATES SCREEN NEGATIVE; URINE BENZODIAZEPINES SCREEN NEGATIVE; URINE COCAINE SCREEN NEGATIVE; URINE MARIJUANA (THC) SCREEN UNCONFIRMED POSITIVE; URINE METHADONE SCREEN NEGATIVE; URINE PHENCYCLIDINE SCREEN NEGATIVE
[2017-11-04] MEDS: HYDROMORPHONE HCL INJ/PF 2 MG/ML AMPULE IV PRN ×4 (05:30→20:04)
[2017-11-04] MEDS: METOCLOPRAMIDE HCL INJ/PF 10 MG/2 ML SDV IV SCH ×3 (05:33→17:23)
[2017-11-04 06:02] LABS: ALANINE AMINOTRANSFERASE 27 U/L (9-52); ALBUMIN 3.2 g/dL (3.5-5.0); ALKALINE PHOSPHATASE 39 U/L (38-126); ANION GAP 14 (5-19); ASPARTATE AMINO TRANSFERASE 15 U/L (14-36); BILIRUBIN,DIRECT 0.3 mg/dL (0.0-0.4); BILIRUBIN,TOTAL 0.4 mg/dL (0.2-1.3); BLOOD UREA NITROGEN 6 mg/dL (7-20); CALCIUM 7.8 mg/dL (8.4-10.2); CARBON DIOXIDE 12 mmol/L (22-30); CHLORIDE 116 mmol/L (98-107); CREATINE KINASE 53 U/L (30-135); GLUCOSE 77 mg/dL (75-110); SODIUM 142.1 mmol/L (137-145); TOTAL PROTEIN 5.5 g/dL (6.3-8.2)
[2017-11-04 06:29] LABS: POTASSIUM 4.3 mmol/L (3.6-5.0)
[2017-11-04 07:24] LABS: ABSOLUTE LYMPHOCYTES (AUTO) 1.4 10^3/uL (0.5-4.7); ABSOLUTE MONOCYTES (AUTO) 0.5 10^3/uL (0.1-1.4); BASOPHILS % (AUTO) 0.4 % (0-2); EOSINOPHILS % (AUTO) 0.7 % (0-6); HEMATOCRIT 41.4 % (36.0-47.0); MEAN CORPUSCULAR HEMOGLOBIN 33.6 pg (27.0-33.4); MEAN CORPUSCULAR HGB CONC 34.4 g/dL (32.0-36.0); MEAN CORPUSCULAR VOLUME 98 fl (80-97); MONOCYTES % (AUTO) 7.3 % (3-13); PLATELET COUNT 113 10^3/uL (150-450); RED BLOOD COUNT 4.24 10^6/uL (3.72-5.28); SEGMENTED NEUTROPHILS % (AUTO) 71.6 % (42-78); TOTAL CELLS COUNTED % (AUTO) 100 %
--- NOTE | 2017-11-04 08:11 | Progress Note ---
Provider Note Provider Note: TODD ROBLES Search Criteria: Last Name 'Todd' and First Name 'Marychuy' and = ' and Request Period = '05/08/17' to '11/04/17' - 1 out of 1 Recipients Selected. Fill Date Product, Str, Form Qty Days Pt ID Prescriber Written RX# N/R* Pharm MED+ ------ ---- --------- --- ------- ----- --------- ------ 10/30/2017 HYDROMORPHONE 2 MG TABLET 14.00 3 [id number] 10/30/2017 [id number] N [id number] 37.33 10/25/2017 OXYCODONE-ACETAMINOPHEN 5-325 15.00 2 [id number] 10/24/2017 [id number] N [id number] 56.25 10/05/2017 CLONAZEPAM 0.5 MG TABLET 60.00 30 [id number] 10/05/2017 [id number] N [id number] 00.0 10/05/2017 DEXTROAMP-AMPHET ER 30 MG CAP 60.00 30 [id number] 10/05/2017 [id number] N [id number] 00.0 08/29/2017 DEXTROAMP-AMPHET ER 30 MG CAP 60.00 30 [id number] 08/27/2017 [id number] N [id number] 00.0 07/28/2017 CLONAZEPAM 0.5 MG TABLET 60.00 30 [id number] 07/26/2017 [id number] N [id number] 00.0 07/28/2017 DEXTROAMP-AMPHET ER 30 MG CAP 60.00 30 [id number] 07/26/2017 [id number] N [id number] 00.0 06/28/2017 DEXTROAMP-AMPHET ER 30 MG CAP 60.00 30 [id number] 06/19/2017 [id number] N [id number] 00.0 06/27/2017 LYRICA 225 MG CAPSULE 28.00 14 [id number] 06/27/2017 [id number] N [id number] 00.0 06/27/2017 CLONAZEPAM 0.5 MG TABLET 60.00 30 [id number] 06/22/2017 [id number] N [id number] 00.0 06/22/2017 HYDROCODONE-ACETAMIN 10-325 MG 180.00 30 [id number] 2017 [id number] N [id number] 60.0 05/23/2017 HYDROCODONE-ACETAMIN 10-325 MG 180.00 30 [id number] 2017 [id number] N [id number] 60.0 05/23/2017 DEXTROAMP-AMPHET ER 30 MG CAP 60.00 30 [id number] 05/23/2017 [id number] N [id number] UNK 05/08/2017 CLONAZEPAM 0.5 MG TABLET 60.00 30 [id number] 04/04/2017 [id number] R [id number] UNK [id number] NORA CASANOVA; [facility], [address] [facility] [id number] NIKUNJ DESOUZA; [facility], [address] [place], [place] [id number] 11/03/17 20:55 Urine Opiates Screen UNCONFIRMED POSITIVE Ur Amphetamines Screen UNCONFIRMED POSITIVE U Benzodiazepines Scrn NEGATIVE U Marijuana (THC) Screen UNCONFIRMED POSITIVE
[2017-11-04 08:28] LABS: HEMOGLOBIN 14.2 g/dL (12.0-15.5)
[2017-11-04] MEDS ORDERED: MAGNESIUM SULFATE/D5W 1 GM/100 ML RTUPB IV ONE (14:45)
[2017-11-04] MEDS: NORMAL SALINE 1000 ML 1,000 ML IV PRN ×2 (15:58→22:18)
[2017-11-04 16:06] LABS: ANION GAP 13 (5-19); BLOOD UREA NITROGEN 6 mg/dL (7-20); CALCIUM 9.2 mg/dL (8.4-10.2); CARBON DIOXIDE 18 mmol/L (22-30); CHLORIDE 110 mmol/L (98-107); GLUCOSE 59 mg/dL (75-110); SODIUM 141.1 mmol/L (137-145)
[2017-11-04] MEDS ORDERED: CLONAZEPAM 1 MG PO SCH (22:00)
[2017-11-04] MEDS: CLONAZEPAM 1 MG TABLET PO SCH (22:17)
[2017-11-04] MEDS: PANTOPRAZOLE SODIUM 40 MG VIAL IV SCH (22:17)
--- NOTE | 2017-11-04 23:16 | PROGRESS NOTE E ---
Progress Note NAME: TRAVIS HORVATH : 1980 AGE: 37Y DATE: 11/04/2017 ROOM: 536 SUBJECTIVE: The patient is lying in bed. She states that she feels better than when she came in, but still does not feel well. I had a lengthy conversation with the patient regarding her overall condition. According to the patient, she was 133 pounds 4 months ago, and currently weighs 99. The patient states that she has had progressive nausea and gnawing epigastric pain, right upper quadrant pain that has been going on intermittently. The patient has had vomiting associated with it and has not had any significant intake. The patient does freely admit to marijuana consumption, but states that she smokes about 4 grams a week at the most and actually has not smoked in the past 2 to 3 weeks, given that she has not had the money to do so. The patient is familiar with THC-related cyclic vomiting and is adamant this is not her issue. Also patient states she tries to limit her marijuana use to after her pseudoseizures. The patient did present profoundly acidotic, with evidence of significant starvation-type acidosis. The patient denies ever having any sort of GI evaluation. She did have a CT scan done outpatient on the with contrast that did not show any masses. No concerning nodes, lymphadenopathy. Did note pelvic congestion syndrome, and this is being followed by her [facility]. It is to be noted that the patient is prescribed opiates, benzodiazepines as well as amphetamines, and I have asked the patient if she feels the polypharmacy could be contributory to it. The patient adamantly denies this. The patient denies any known history of peptic ulcer disease. Has had no hematemesis or hematochezia. REVIEW OF SYSTEMS: The rest of the review of systems is negative. MEDICATIONS: Reviewed. OBJECTIVE: GENERAL: The patient is a 37-year-old female who is awake, alert. She is oriented to person, place, time and situation. She is verbal and conversational. Does not appear to be in acute distress. VITAL SIGNS: Temperature is 98.7, pulse 93, respirations 18, blood pressure is 105/68, oxygen saturation is 100% on room air. SKIN: Warm and dry. No rashes. Not diaphoretic. HEENT: Pupils equal, round, reactive to light and accommodation. Conjunctivae are pink. There is no evidence of JVP. CVS: Heart is regular. No murmur or rub. CHEST: Clear, symmetrical, unlabored. ABDOMEN: Thin. Bowel sounds are present. EXTREMITIES: No clubbing, cyanosis or edema. PSYCHIATRIC: Appropriate affect. Pleasant mood. DIAGNOSTICS: Lab values are as follows: Hematology obtained on 11/04/2017: WBC is 10.0, hemoglobin is 14.2, hematocrit is 41.4, platelet count is 113,000. Chemistry obtained on 11/04/2017: Sodium is 141, potassium 4.0, chloride is 110, carbon dioxide 18. BUN is 6, creatinine 0.69. Glucose 59. Calcium is 9.2. Magnesium is 1.7. IMPRESSION AND PLAN: 1. METABOLIC ACIDOSIS. This is pretty severe. The patient has had persistent nausea and vomiting. She did have a gap of 33. The patient has required multiple liters of fluid for resuscitation. Patient does have significant proteinuria as well. The patient reports significant weight loss of 33 pounds in 12 weeks. 2. NAUSEA, VOMITING. I did discuss cyclic vomiting with the patient; however, according to her, she has not smoked marijuana or consumed THC in 2 to 3 weeks at this point. She has responded well to the Reglan. Will consult Gastroenterology, given that there is right upper quadrant tenderness, possible underlying peptic ulcer. Have covered her with PPI. CT of the abdomen done outpatient was unremarkable. 3. HYPERKALEMIA. This is resolved with IV fluid resuscitation. 4. OPIATE DEPENDENCY, CONTINUOUS. Have continued this. Does not appear to be an element of opiate withdrawal here. 5. BENZODIAZEPINE USE. The patient's actual benzodiazepines were negative. She has been getting them regularly. Given the patient does have a history of pseudoseizures, I am concerned for possible withdrawal, so will continue to schedule dosage of this. 6. AMPHETAMINE USE. The patient does take Adderall as well. This is not stocked at the hospital. 7. PSEUDOSEIZURES. The patient is asymptomatic at this time. DISPOSITION: The patient is a FULL CODE. Pending patient's symptomatology and diagnostic findings, will reevaluate in the a.m. Will make the patient inpatient, as her expected length of stay should surpass 2 midnights. Time spent on this followup, including assessment, plan, physical examination, patient education and review of records, is 35 minutes. DICTATING PHYSICIAN: KANG BEAULIEU NP [id number] PHY#: [id number] ID: [id number] JOB#: [id number] ACCT: [id number] cc: > MTDD
[2017-11-05] MEDS: TEMAZEPAM 7.5 MG CAPSULE PO PRN (00:11)
[2017-11-05] MEDS: METOCLOPRAMIDE HCL INJ/PF 10 MG/2 ML SDV IV SCH ×2 (00:16→06:28)
[2017-11-05] MEDS: HYDROMORPHONE HCL INJ/PF 2 MG/ML AMPULE IV PRN ×4 (00:16→21:40)
[2017-11-05] MEDS: NORMAL SALINE 1000 ML 1,000 ML IV PRN (06:28)
[2017-11-05] MEDS: PANTOPRAZOLE SODIUM 40 MG VIAL IV SCH ×2 (09:19→21:42)
--- NOTE | 2017-11-05 09:24 | PDOC PROGRESS REPORT ---
Subjective Progress Note for:: 11/05/17 Subjective:: Patient still complains of severe nausea and abdominal pain especially when she tries to eat or drink anything Seems like her problem started about 2 months ago when she experienced what she describes as a stomach flu Since then she has not been able to tolerate any significant oral intake and lost about 30 pounds over the past several weeks Her CT scan that was done outpatient was positive for possibly pelvic congestion syndrome and was attributed to her weight loss Her [employer]INE[employer] physician will address this outpatient "per patient report" Reason For Visit: INTRACTABLE NAUSEA AND VOMITING Physical Exam Vital Signs: Temp Pulse Resp BP Pulse Ox 98.7 F 76 18 97/58 L 98 11/05/17 01:07 11/05/17 01:07 11/05/17 01:07 11/05/17 01:07 11/05/17 01:07 Intake & Output 11/04/17 11/05/17 11/06/17 06:59 06:59 06:59 Intake Total 4000 2158 Balance 4000 2158 General appearance: PRESENT: no acute distress, thin Head exam: PRESENT: atraumatic, normocephalic Eye exam: PRESENT: conjunctival injection, PERRLA Ear exam: PRESENT: bleeding, normal external ear exam Mouth exam: PRESENT: neck supple, tongue midline Throat exam: ABSENT: post pharyngeal erythema, tonsillar exudate Neck exam: ABSENT: JVD, meningismus, thyromegaly, tracheal deviation Respiratory exam: PRESENT: clear to auscultation nella. ABSENT: accessory muscle use, rales, rhonchi, wheezes Cardiovascular exam: PRESENT: RRR. ABSENT: diastolic murmur, systolic murmur, tachycardia Pulses: PRESENT: normal radial pulses GI/Abdominal exam: PRESENT: normal bowel sounds, tenderness. ABSENT: ascites, distended, rebound Extremities exam: ABSENT: calf tenderness, joint swelling Neurological exam: PRESENT: alert, altered, awake, oriented to person, oriented to place, oriented to time, oriented to situation, CN II-XII grossly intact. ABSENT: motor sensory deficit Psychiatric exam: PRESENT: anxious Skin exam: PRESENT: normal color. ABSENT: abrasion, cyanosis Results Laboratory Results: 11/04/17 05:10 11/04/17 14:56 11/04/17 14:56 Sodium 141.1 Potassium 4.0 Chloride 110 H Carbon Dioxide 18 L Anion Gap 13 BUN 6 L Creatinine 0.69 Est GFR ( Amer) > 60 Est GFR (Non-Af Amer) > 60 Glucose 59 L Calcium 9.2 Magnesium 1.7 11/04/17 05:10 Creatine Kinase 53 Impressions: Abdomen X-Ray 11/03/17 20:33 IMPRESSION: NO RADIOGRAPHIC EVIDENCE FOR ACUTE ABDOMINAL DISEASE. Assessment & Plan - Plan Summary Plan Summary: Severe metabolic acidosis: This has resolved after volume resuscitation and rehydration Intractable nausea and vomiting: Kos and the patient to lose 30 pounds in few weeks. Continue fluid and electrolyte replacement. Continue Reglan as prescribed. GI consult Intractable abdominal pain: Most pronounced in the epigastric area. CT scan October 24 positive for questionable pelvic congestion syndrome which was attributed to her weight loss apparently. Continue IV analgesics as needed Hyperkalemia: Resolved after IV hydration
[2017-11-05] MEDS ORDERED: HYDROMORPHONE HCL INJ/PF 2 MG/ML AMPULE IM ONE (14:30)
--- NOTE | 2017-11-05 19:46 | RADIOLOGY REPORT (SQ) ---
EXAM DESCRIPTION: CHEST SINGLE VIEW COMPLETED DATE/TIME: 11/05/2017 7:31 pm REASON FOR STUDY: CENTRAL LINE PLACEMENT COMPARISON: None. NUMBER OF VIEWS: One view. TECHNIQUE: Single frontal radiographic view of the chest acquired. LIMITATIONS: None. FINDINGS: Central venous access catheter placed via right IJ approach. Catheter tip at cavo-atrial junction. No pneumothorax. Radiographic appearance of the chest otherwise unremarkable. IMPRESSION: CENTRAL VENOUS ACCESS CATHETER IN APPROPRIATE LOCATION. NO PNEUMOTHORAX. NEW CENTRAL L INE. TECHNICAL DOCUMENTATION: JOB ID: [id number] [place]-72 2010 [employer]- All Rights Reserved Reading location - IP/workstation name: [email or web address]
--- NOTE | 2017-11-05 20:14 | Operative Report ---
Bedside Procedure - History of Present Illness History of Present Illness: TRAVIS HORVATH is a 37 year old female who comes to the emergency department complaining of 3-4 weeks of illness. Has been having intermittent nausea and nonbloody vomiting that has been severe today, also abdominal pain more intense in the epigastric area, radiated to her back, 10/10 intensity, states that she has history of chronic pancreatitis. Denies fever, complains of chills, denies shortness of breath, chest pain, diarrhea, dizziness, lightheadedness, urinary symptoms. In the ED, noted with severe dehydration. Patient has a known history of THC abuse with a high suspicious of cannabis induced cyclical vomiting, no urine drug screen done yet. Patient has long-standing history of recurrent abdominal pain has multiple abdominal surgeries with organ resections and multiple exploratory laparoscopies. She also has long standing psychiatric history with pseudoseizures and anxiety. Laboratory positive for anion gap metabolic acidosis and severe dehydration may require admission. CT abdomen does not show any calcification of the pancreas which would be consistent with chronic pancreatitis. Indication for Procedure: poor IV access, need frequent blood sampling and administration of IV medic Date: 11/05/17 Surgeon: KEVIN BLACKWELL - Central Line Right Internal jugular Consent obtained: Yes Central line pre-insertion: Sterile PPE donned, Chloraprep applied Central line lumen type: Triple Anesthetic type: 1% Lidocaine mL's of anesthesia: 5 Ultrasound guided: Yes CM at insertion site: 15 Line secured with sutures: Yes Central line post-insertion: Blood return from lumens, Biopatch applied, Sutured , Sterile dressing applied Number of attempts: 1 Complications: No
[2017-11-05] MEDS: CLONAZEPAM 1 MG TABLET PO SCH (21:42)
[2017-11-06] MEDS: TEMAZEPAM 7.5 MG CAPSULE PO PRN (00:25)
[2017-11-06] MEDS: METOCLOPRAMIDE HCL INJ/PF 10 MG/2 ML SDV IV SCH ×6 (00:25→18:13)
[2017-11-06] MEDS: HYDROMORPHONE HCL INJ/PF 2 MG/ML AMPULE IV PRN ×4 (07:15→19:54)
[2017-11-06 07:24] LABS: HEMATOCRIT 31.4 % (36.0-47.0); MEAN CORPUSCULAR HEMOGLOBIN 33.9 pg (27.0-33.4); MEAN CORPUSCULAR HGB CONC 35.3 g/dL (32.0-36.0); MEAN CORPUSCULAR VOLUME 96 fl (80-97); PLATELET COUNT 181 10^3/uL (150-450); RED BLOOD COUNT 3.26 10^6/uL (3.72-5.28); RED CELL DISTRIBUTION WIDTH 12.7 % (11.5-14.0); WHITE BLOOD COUNT 4.8 10^3/uL (4.0-10.5)
[2017-11-06 07:56] LABS: ANION GAP 9 (5-19); BLOOD UREA NITROGEN 2 mg/dL (7-20); CALCIUM 8.4 mg/dL (8.4-10.2); CARBON DIOXIDE 26 mmol/L (22-30); CHLORIDE 107 mmol/L (98-107); GLUCOSE 82 mg/dL (75-110); POTASSIUM 3.1 mmol/L (3.6-5.0); SODIUM 141.7 mmol/L (137-145)
[2017-11-06 08:07] LABS: HEMOGLOBIN 11.1 g/dL (12.0-15.5)
[2017-11-06] MEDS ORDERED: MAGNESIUM SULFATE PF/INJ 40 MEQ/10 ML SDV IV ONE (08:20)
--- NOTE | 2017-11-06 08:39 | PDOC PROGRESS REPORT ---
Subjective Progress Note for:: 11/06/17 Subjective:: Patient is not tolerating any food which she attributed to not receiving pain medicine, PPI and antiemetics for long duration yesterday before she eventually had an IV access. Her main problem is severe pain in the epigastric area was any food intake. Reason For Visit: INTRACTABLE NAUSEA AND VOMITING Physical Exam Vital Signs: Temp Pulse Resp BP Pulse Ox 98.9 F 76 16 114/78 99 11/06/17 07:32 11/06/17 07:32 11/06/17 07:32 11/06/17 07:32 11/06/17 07:32 Intake & Output 11/05/17 11/06/17 11/07/17 06:59 06:59 06:59 Intake Total 2158 690 Balance 2158 690 General appearance: PRESENT: no acute distress, cooperative Head exam: PRESENT: atraumatic, normocephalic Eye exam: PRESENT: EOMI, PERRLA. ABSENT: conjunctival injection, nystagmus Ear exam: ABSENT: bleeding, drainage Mouth exam: PRESENT: moist, neck supple Throat exam: ABSENT: post pharyngeal erythema Neck exam: ABSENT: JVD, meningismus, tenderness, thyromegaly Respiratory exam: PRESENT: clear to auscultation nella. ABSENT: accessory muscle use, rales, rhonchi, wheezes Cardiovascular exam: PRESENT: RRR, +S1, +S2. ABSENT: diastolic murmur Pulses: PRESENT: normal radial pulses GI/Abdominal exam: PRESENT: normal bowel sounds, soft, tenderness - Epigastric. ABSENT: ascites, mass Rectal exam: PRESENT: deferred Extremities exam: ABSENT: clubbing, joint swelling, pedal edema, tenderness Neurological exam: PRESENT: alert, altered, awake, oriented to person, oriented to place, oriented to time, oriented to situation. ABSENT: motor sensory deficit Psychiatric exam: PRESENT: appropriate affect. ABSENT: agitated, anxious, depressed Skin exam: ABSENT: abrasion, cyanosis, erythema, jaundice Results Laboratory Results: 11/06/17 06:35 11/06/17 06:35 11/06/17 11/06/17 06:35 06:35 WBC 4.8 RBC 3.26 L Hgb 11.1 L D Hct 31.4 L MCV 96 MCH 33.9 H MCHC 35.3 RDW 12.7 Plt Count 181 Sodium 141.7 Potassium 3.1 L Chloride 107 Carbon Dioxide 26 Anion Gap 9 BUN 2 L Creatinine 0.55 Est GFR ( Amer) > 60 Est GFR (Non-Af Amer) > 60 Glucose 82 Calcium 8.4 Magnesium 1.3 L 11/04/17 05:10 Creatine Kinase 53 Impressions: Abdomen X-Ray 11/03/17 20:33 IMPRESSION: NO RADIOGRAPHIC EVIDENCE FOR ACUTE ABDOMINAL DISEASE. Chest X-Ray 11/05/17 00:00 IMPRESSION: CENTRAL VENOUS ACCESS CATHETER IN APPROPRIATE LOCATION. NO PNEUMOTHORAX. NEW CENTRAL LINE. Assessment & Plan - Diagnosis (1) Abdominal pain Qualifiers: Abdominal location: epigastric Qualified Code(s): R10.13 - Epigastric pain Is this a current diagnosis for this admission?: Yes (3) Nausea and vomiting Qualifiers: Vomiting type: unspecified Vomiting Intractability: non-intractable Qualified Code(s): R11.2 - Nausea with vomiting, unspecified Is this a current diagnosis for this admission?: Yes - Plan Summary Plan Summary: Intractable nausea vomiting: Continue IV fluids and IV Reglan. Replace electrolytes as appropriate Hypokalemia and hypomagnesemia: Replace today and monitor levels Severe epigastric abdominal pain: Continue IV Protonix. Continue IV Dilaudid as needed. GI is consulted. Severe metabolic acidosis: Resolved Pelvic congestion syndrome: Follow-up outpatient with RACK PUSHER
[2017-11-06] MEDS: PANTOPRAZOLE SODIUM 40 MG VIAL IV SCH ×2 (10:06→21:56)
[2017-11-06] MEDS: MAGNESIUM SULFATE 1 GM/D5W 100 ML IV SCH ×2 (10:06→15:01)
[2017-11-06] MEDS: POTASSI CL 40 MEQ/NS 1L 1,000 ML IV PRN (10:14)
--- NOTE | 2017-11-06 12:45 | PDOC CONSULTATION ---
Consultation Consult Date: 11/06/17 Attending physician:: RUPERTO BAZAN Consult reason:: Melena, weight loss. epigastric pain, nausea and vomiting History of Present Illness Admission Date/PCP: 11/03/17 22:24 NORA CASANOVA DO History of Present Illness: TRAVIS HORVATH is a 37 year old female patient was admitted for inability to tolerate oral intake has been having epigastric pain, post prandial has seen some blood in what she has to vomit out patient says has nausea as well has had weight loss ongoing as well GI consultation requested for possible EGD patient had just eaten prior to me seeing her she will need EGD however she will need Propofol sedation and she will need to be scheduled in the OR setting patient states no previous episodes she denies the use of any NSAIDS Past Medical History Cardiac Medical History: Reports: Hypertension Denies: Coronary Artery Disease, Myocardial Infarction Pulmonary Medical History: Reports: Asthma - EXERCISE INDUCED Denies: Bronchitis, Chronic Obstructive Pulmonary Disease (COPD), Pneumonia Neurological Medical History: Reports: Seizures GI Medical History: Reports: Gastroesophageal Reflux Disease Musculoskeltal Medical History: Reports: Arthritis Psychiatric Medical History: Reports: Attention Deficit Hyperactivity Disorder, Depression Traumatic Medical History: Reports: Traumatic Brain Injury Hematology: Reports: Anemia Past Surgical History Past Surgical History: Reports: Appendectomy, Section - X3, Cholecystectomy, Orthopedic Surgery - L WRIST SCREW, ULNAR NERVE, Tubal Ligation , Other - H/S with uterine scar removed and apparent drain/balloon placement per pt Social History Lives with: Spouse/Significant other Smoking Status: Current Some Day Smoker Frequency of Alcohol Use: Occasional Hx Recreational Drug Use: No Drugs: None Hx Prescription Drug Abuse: No Family History Family History: Reviewed & Not Pertinent Parental Family History Reviewed: Yes Children Family History Reviewed: Unknown Sibling(s) Family History Reviewed.: Unknown Medication/Allergy Home Medications: Clonazepam [Klonopin] 1 mg PO QHS 11/04/17 Dextroamphetamine/Amphetamine [Adderall Xr 30 mg Capsule] 30 mg PO BID 11/04/17 Allergies/Adverse Reactions: Heparin Analogues [Heparin Agents] Allergy (Verified 11/03/17 17:16) latex [Latex] Allergy (Verified 11/03/17 17:16) TROUBLE BREATHING, RED RASH meperidine HCl [From Demerol] Allergy (Verified 11/03/17 17:16) morphine [Morphine] Allergy (Verified 11/03/17 17:16) ondansetron HCl [From Zofran] Allergy (Verified 11/03/17 17:16) scopolamine Allergy (Verified 11/03/17 17:16) promethazine HCl [From Phenergan] Adverse Reaction (Verified 11/03/17 17:16) Review of Systems Constitutional: ABSENT: fever(s), headache(s), night sweats, weakness Eyes: ABSENT: visual disturbances Ears: ABSENT: hearing changes Nose, Mouth, and Throat: ABSENT: mouth pain, sore throat Cardiovascular: ABSENT: edema, orthropnea, palpitations Respiratory: ABSENT: dyspnea, hemoptysis Gastrointestinal: PRESENT: heartburn, melena, nausea, vomiting. ABSENT: diarrhea Genitourinary: ABSENT: dysuria, nocturia Musculoskeletal: ABSENT: deformity, joint swelling Integumentary: ABSENT: lesions, pruritus Neurological: ABSENT: syncope, tingling, tremor(s), vertigo Endocrine: ABSENT: polydipsia, polyphagia, polyuria Hematologic/Lymphatic: ABSENT: easy bruising Physical Exam Vital Signs: Temp Pulse Resp BP Pulse Ox 98.9 F 72 16 115/72 100 11/06/17 11:41 11/06/17 11:41 11/06/17 11:41 11/06/17 11:41 11/06/17 11:41 Intake & Output 11/05/17 11/06/17 11/07/17 06:59 06:59 06:59 Intake Total 2158 1690 Balance 2158 1690 General appearance: PRESENT: no acute distress, thin Head exam: PRESENT: atraumatic, normocephalic Eye exam: PRESENT: EOMI, PERRLA. ABSENT: nystagmus, periorbital swelling, scleral icterus Mouth exam: PRESENT: moist. ABSENT: neck supple Throat exam: ABSENT: tonsillar exudate Neck exam: ABSENT: meningismus, tenderness, thyromegaly Respiratory exam: PRESENT: symmetrical, unlabored. ABSENT: tachypnea, wheezes Cardiovascular exam: PRESENT: RRR, +S1, +S2 GI/Abdominal exam: PRESENT: soft. ABSENT: rebound, rigid, tenderness Extremities exam: ABSENT: joint swelling Musculoskeletal exam: PRESENT: full ROM Neurological exam: PRESENT: alert, awake, oriented to time, oriented to situation, CN II-XII grossly intact Focused psych exam: ABSENT: restlessness Skin exam: PRESENT: normal color. ABSENT: mottled, pallor, urticaria, vesicles Results Laboratory Results: 11/06/17 06:35 11/06/17 06:35 11/06/17 11/06/17 06:35 06:35 WBC 4.8 RBC 3.26 L Hgb 11.1 L D Hct 31.4 L MCV 96 MCH 33.9 H MCHC 35.3 RDW 12.7 Plt Count 181 Sodium 141.7 Potassium 3.1 L Chloride 107 Carbon Dioxide 26 Anion Gap 9 BUN 2 L Creatinine 0.55 Est GFR ( Amer) > 60 Est GFR (Non-Af Amer) > 60 Glucose 82 Calcium 8.4 Magnesium 1.3 L 11/04/17 05:10 Creatine Kinase 53 Impressions: Abdomen X-Ray 11/03/17 20:33 IMPRESSION: NO RADIOGRAPHIC EVIDENCE FOR ACUTE ABDOMINAL DISEASE. Chest X-Ray 11/05/17 00:00 IMPRESSION: CENTRAL VENOUS ACCESS CATHETER IN APPROPRIATE LOCATION. NO PNEUMOTHORAX. NEW CENTRAL LINE. Assessment & Plan - Diagnosis (1) Abdominal pain Qualifiers: Abdominal location: epigastric Qualified Code(s): R10.13 - Epigastric pain Is this a current diagnosis for this admission?: Yes Plan: Epigastric in location may have peptic ulcer disease will need EGD Risks, benefits and alternatives are explained to the patient in detail further recommendations to follow (2) Nausea and vomiting Qualifiers: Vomiting type: unspecified Vomiting Intractability: non-intractable Qualified Code(s): R11.2 - Nausea with vomiting, unspecified Is this a current diagnosis for this admission?: Yes Plan: will need to exclude possible gastric outlet obstruction biopsies needed in stomach, rule out H.pylori as well as duodenal biopsies to rule out celiac disease - Time Time Spent: 50 to 70 Minutes
[2017-11-06] MEDS: CLONAZEPAM 1 MG TABLET PO SCH (21:57)
[2017-11-07] MEDS: HYDROMORPHONE HCL INJ/PF 2 MG/ML AMPULE IV PRN ×6 (00:12→22:32)
[2017-11-07] MEDS: METOCLOPRAMIDE HCL INJ/PF 10 MG/2 ML SDV IV SCH ×5 (00:12→23:22)
[2017-11-07] MEDS: TEMAZEPAM 7.5 MG CAPSULE PO PRN ×2 (00:12→22:30)
[2017-11-07] MEDS: POTASSI CL 40 MEQ/NS 1L 1,000 ML IV PRN ×2 (01:01→14:21)
[2017-11-07] MEDS: LORAZEPAM INJ 2 MG/1 ML VIAL IV PRN (04:17)
[2017-11-07 06:28] LABS: HEMATOCRIT 31.4 % (36.0-47.0); HEMOGLOBIN 11.2 g/dL (12.0-15.5); MEAN CORPUSCULAR HEMOGLOBIN 34.2 pg (27.0-33.4); MEAN CORPUSCULAR HGB CONC 35.7 g/dL (32.0-36.0); MEAN CORPUSCULAR VOLUME 96 fl (80-97); PLATELET COUNT 179 10^3/uL (150-450); RED BLOOD COUNT 3.28 10^6/uL (3.72-5.28); RED CELL DISTRIBUTION WIDTH 12.5 % (11.5-14.0); WHITE BLOOD COUNT 3.9 10^3/uL (4.0-10.5)
[2017-11-07 06:33] LABS: ANION GAP 7 (5-19); CALCIUM 8.4 mg/dL (8.4-10.2); CARBON DIOXIDE 28 mmol/L (22-30); CHLORIDE 109 mmol/L (98-107); GLUCOSE 84 mg/dL (75-110); POTASSIUM 3.6 mmol/L (3.6-5.0); SODIUM 143.9 mmol/L (137-145)
[2017-11-07 06:49] LABS: BLOOD UREA NITROGEN < 2 mg/dL (7-20)
--- NOTE | 2017-11-07 08:33 | PDOC PROGRESS REPORT ---
Subjective Progress Note for:: 11/07/17 Subjective:: Patient says she is able to tolerate food despite her nausea due to "trio" medication that we are given her and she means by that hydromorphone on, Protonix and Reglan. She has history of seizure versus pseudoseizures. She is supposed to follow-up with neurologist from [facility] in January. She is to follow-up with a local neurologist which is not pleased with. She says she normally gets seizures per week. Last night she anticipated having a seizure and she actually did. She received Ativan but did not prevent the seizure adjust "controlled it". She showed me a video of her having a seizure on her house on her bed surrounded by her family. Looks like she was having these rhythmic movements and she rests when she gets tired than she goes back at it again. Very suspicious of pseudoseizures. Reason For Visit: INTRACTABLE NAUSEA AND VOMITING Physical Exam Vital Signs: Temp Pulse Resp BP Pulse Ox 98.7 F 80 17 110/63 100 11/07/17 03:00 11/07/17 03:00 11/07/17 03:00 11/07/17 03:00 11/07/17 03:00 Intake & Output 11/06/17 11/07/17 11/08/17 06:59 06:59 06:59 Intake Total 1690 1637 Balance 1690 1637 Weight 106 lb 4.205 oz General appearance: PRESENT: no acute distress, thin Head exam: PRESENT: atraumatic, normocephalic Eye exam: PRESENT: conjunctiva pink, EOMI, PERRLA. ABSENT: scleral icterus Ear exam: PRESENT: normal external ear exam Mouth exam: PRESENT: moist, tongue midline Neck exam: ABSENT: carotid bruit, JVD, lymphadenopathy, thyromegaly Respiratory exam: PRESENT: clear to auscultation nella. ABSENT: rales, rhonchi, wheezes Cardiovascular exam: PRESENT: RRR. ABSENT: diastolic murmur, rubs, systolic murmur Pulses: PRESENT: normal dorsalis pedis pul GI/Abdominal exam: PRESENT: normal bowel sounds, soft, tenderness - Epigastric. ABSENT: distended, guarding, mass, organolmegaly, rebound Rectal exam: PRESENT: deferred Extremities exam: PRESENT: full ROM. ABSENT: calf tenderness, clubbing, pedal edema Neurological exam: PRESENT: alert, awake, oriented to person, oriented to place , oriented to time, oriented to situation, CN II-XII grossly intact. ABSENT: motor sensory deficit Skin exam: PRESENT: dry, intact, warm. ABSENT: cyanosis, rash Results Laboratory Results: 11/07/17 05:40 11/07/17 05:40 11/07/17 11/07/17 05:40 05:40 WBC 3.9 L RBC 3.28 L Hgb 11.2 L Hct 31.4 L MCV 96 MCH 34.2 H MCHC 35.7 RDW 12.5 Plt Count 179 Sodium 143.9 Potassium 3.6 Chloride 109 H Carbon Dioxide 28 Anion Gap 7 BUN < 2 L Creatinine 0.52 Est GFR ( Amer) > 60 Est GFR (Non-Af Amer) > 60 Glucose 84 Calcium 8.4 Magnesium 1.5 L 11/04/17 05:10 Creatine Kinase 53 Impressions: Abdomen X-Ray 11/03/17 20:33 IMPRESSION: NO RADIOGRAPHIC EVIDENCE FOR ACUTE ABDOMINAL DISEASE. Chest X-Ray 11/05/17 00:00 IMPRESSION: CENTRAL VENOUS ACCESS CATHETER IN APPROPRIATE LOCATION. NO PNEUMOTHORAX. NEW CENTRAL LINE. Assessment & Plan - Diagnosis (1) Abdominal pain Qualifiers: Abdominal location: epigastric Qualified Code(s): R10.13 - Epigastric pain Is this a current diagnosis for this admission?: Yes (3) Nausea and vomiting Qualifiers: Vomiting type: unspecified Vomiting Intractability: non-intractable Qualified Code(s): R11.2 - Nausea with vomiting, unspecified Is this a current diagnosis for this admission?: Yes - Plan Summary Plan Summary: Intractable nausea vomiting: Continue IV fluids and IV Reglan. Replace electrolytes as appropriate Hypokalemia and hypomagnesemia: Replace and monitor levels Severe epigastric abdominal pain: Mostly postprandial. Continue IV Protonix. Continue IV Dilaudid as needed. GI is consulted. Plan for EGD later today. 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 She should follow-up and keep her appointment was neurology as scheduled.
[2017-11-07] MEDS: PANTOPRAZOLE SODIUM 40 MG VIAL IV SCH (10:10)
[2017-11-07] MEDS: MAGNESIUM SULFATE/D5W 1 GM/100 ML RTUPB IV SCH ×2 (10:11→14:26)
[2017-11-07] MEDS ORDERED: PROPOFOL INJ 200 MG/20 ML VIAL IV ONE (10:42)
[2017-11-07] MEDS ORDERED: DIPHENHYDRAMINE HCL 50 MG/ML VIAL IV PRN (12:30)
--- NOTE | 2017-11-07 12:34 | Operative Report ---
Operative Report DATE OF SURGERY: 11/07/17 Operative Report: The risks benefits and alternatives of the procedure explained to the patient in detail and informed consent is obtained.A GIF Olympus video scope was inserted into the patient's mouth and hypopharynx ,the esophagus is identified intubated and insufflated ,the scope was then advanced through the esophagus stomach and duodenum ,retroflexion maneuver is done the esophagus stomach and first and second portions of the duodenum examined PREOPERATIVE DIAGNOSIS: Epigastric pain, nausea vomiting POSTOPERATIVE DIAGNOSIS: Esophagitis, gastritis, duodenitis. Biopsies obtained to rule out for Helicobacter pylori OPERATION: EGD with biopsy SURGEON: RUPERTO BAZAN ANESTHESIA: LMAC TISSUE REMOVED OR ALTERED: Gastric mucosal specimen obtained COMPLICATIONS: None. ESTIMATED BLOOD LOSS: None. INTRAOPERATIVE FINDINGS: As noted above. PROCEDURE: Patient tolerated procedure well. No immediate postprocedure complications are noted. Patient sent back to her room in good condition. Resume previous diet. Wait on biopsies. Treat for Helicobacter pylori if positive Continue PPI and antiemetics
[2017-11-07] MEDS ORDERED: MIDAZOLAM 2 MG/2 ML INJ ONE (12:58)
[2017-11-07] MEDS ORDERED: MAGNESIUM SULFATE/D5W 1 GM/100 ML RTUPB IV ONE (13:15)
[2017-11-07] MEDS: CLONAZEPAM 1 MG TABLET PO SCH (22:30)
[2017-11-08] MEDS: HYDROMORPHONE HCL INJ/PF 2 MG/ML AMPULE IV PRN ×3 (03:16→16:20)
[2017-11-08] MEDS: POTASSI CL 40 MEQ/NS 1L 1,000 ML IV PRN ×2 (03:28→16:21)
[2017-11-08] MEDS: METOCLOPRAMIDE HCL INJ/PF 10 MG/2 ML SDV IV SCH (05:41)
[2017-11-08 06:29] LABS: ANION GAP 7 (5-19); BLOOD UREA NITROGEN 3 mg/dL (7-20); CALCIUM 8.5 mg/dL (8.4-10.2); CARBON DIOXIDE 27 mmol/L (22-30); CHLORIDE 109 mmol/L (98-107); GLUCOSE 85 mg/dL (75-110); POTASSIUM 3.7 mmol/L (3.6-5.0); SODIUM 142.5 mmol/L (137-145)
[2017-11-08] MEDS ORDERED: PROMETHAZINE HCL 25 MG TABLET PO PRN (09:33)
--- NOTE | 2017-11-08 09:41 | PDOC PROGRESS REPORT ---
Subjective Progress Note for:: 11/08/17 Subjective:: Patient had an EGD yesterday that was positive for esophagitis, gastritis, duodenitis. She says she tolerated food yesterday before the procedure but today she threw up her breakfast. Her Protonix will fell off her list of medications. She is hoping to restart some sort of PPI treatment and tolerated diet so she can be discharged later today or tomorrow. Reason For Visit: INTRACTABLE NAUSEA AND VOMITING Physical Exam Vital Signs: Temp Pulse Resp BP Pulse Ox 98.9 F 82 16 101/65 100 11/08/17 07:31 11/08/17 07:31 11/08/17 07:31 11/08/17 07:31 11/08/17 07:31 Intake & Output 11/07/17 11/08/17 11/09/17 06:59 06:59 06:59 Intake Total 1637 4039 Balance 1637 4039 Weight 106 lb 4.205 oz 112 lb 10.499 oz General appearance: PRESENT: no acute distress, well-developed, well-nourished Head exam: PRESENT: atraumatic, normocephalic Eye exam: PRESENT: conjunctiva pink, EOMI, PERRLA. ABSENT: scleral icterus Ear exam: PRESENT: normal external ear exam Mouth exam: PRESENT: moist, tongue midline Neck exam: ABSENT: carotid bruit, JVD, lymphadenopathy, thyromegaly Respiratory exam: PRESENT: clear to auscultation nella. ABSENT: rales, rhonchi, wheezes Cardiovascular exam: PRESENT: RRR. ABSENT: diastolic murmur, rubs, systolic murmur Pulses: PRESENT: normal dorsalis pedis pul GI/Abdominal exam: PRESENT: normal bowel sounds, soft, tenderness Rectal exam: PRESENT: deferred Extremities exam: PRESENT: full ROM. ABSENT: calf tenderness, clubbing, pedal edema Neurological exam: PRESENT: alert, awake, oriented to person, oriented to place , oriented to time, oriented to situation, CN II-XII grossly intact. ABSENT: motor sensory deficit Psychiatric exam: PRESENT: appropriate affect, normal mood. ABSENT: homicidal ideation, suicidal ideation Results Laboratory Results: 11/07/17 05:40 11/08/17 05:45 11/08/17 05:45 Sodium 142.5 Potassium 3.7 Chloride 109 H Carbon Dioxide 27 Anion Gap 7 BUN 3 L Creatinine 0.51 L Est GFR ( Amer) > 60 Est GFR (Non-Af Amer) > 60 Glucose 85 Calcium 8.5 Magnesium 1.8 11/04/17 05:10 Creatine Kinase 53 Impressions: Abdomen X-Ray 11/03/17 20:33 IMPRESSION: NO RADIOGRAPHIC EVIDENCE FOR ACUTE ABDOMINAL DISEASE. Chest X-Ray 11/05/17 00:00 IMPRESSION: CENTRAL VENOUS ACCESS CATHETER IN APPROPRIATE LOCATION. NO PNEUMOTHORAX. NEW CENTRAL LINE. Assessment & Plan - Diagnosis (1) Abdominal pain Qualifiers: Abdominal location: epigastric Qualified Code(s): R10.13 - Epigastric pain Is this a current diagnosis for this admission?: Yes (3) Nausea and vomiting Qualifiers: Vomiting type: unspecified Vomiting Intractability: non-intractable Qualified Code(s): R11.2 - Nausea with vomiting, unspecified Is this a current diagnosis for this admission?: Yes - Plan Summary Plan Summary: Esophagitis/gastritis/duodenitis: Start lansoprazole, Carafate. Follow-up results from gastric biopsies taken during EGD for H. pylori infection Hypokalemia and hypomagnesemia: Resolved after replacement. 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 She should follow-up and keep her appointment was neurology as scheduled. Advance diet. Possible discharge tomorrow if she is able to tolerate food.
[2017-11-08] MEDS: OXYCODONE-ACETAMINOPHEN 5-325 MG TABLET PO PRN ×4 (10:07→22:14)
[2017-11-08] MEDS: LANSOPRAZOLE 30 MG TAB.RAP.DR PO SCH ×2 (10:08→16:20)
[2017-11-08] MEDS: SUCRALFATE SUSP 1 GM/10 ML UDCUP PO SCH ×3 (12:10→22:13)
[2017-11-08] MEDS: METOCLOPRAMIDE HCL INJ/PF 10 MG/2 ML SDV IV PRN ×2 (13:40→22:15)
--- NOTE | 2017-11-08 19:25 | PDOC PROGRESS REPORT ---
Subjective Progress Note for:: 11/08/17 Subjective:: no post procedure complications are noted biopsies are negative no gastric outlet obstruction noted may need to have gastric emptying scan if continues to have symptoms start on PPI and antiemetic therapy Reason For Visit: INTRACTABLE NAUSEA AND VOMITING Physical Exam Vital Signs: Temp Pulse Resp BP Pulse Ox 98.6 F 113 H 12 95/53 L 98 11/08/17 15:00 11/08/17 15:00 11/08/17 15:00 11/08/17 15:00 11/08/17 15:00 Intake & Output 11/07/17 11/08/17 11/09/17 06:59 06:59 06:59 Intake Total 1637 4039 1203 Balance 1637 4039 1203 Weight 48.2 kg 51.1 kg General appearance: PRESENT: no acute distress, well-developed, well-nourished Head exam: PRESENT: atraumatic, normocephalic Eye exam: PRESENT: EOMI, PERRLA. ABSENT: nystagmus, periorbital swelling, scleral icterus Mouth exam: PRESENT: moist, neck supple Throat exam: ABSENT: tonsillar exudate, tonsillogmegaly Neck exam: ABSENT: meningismus, tenderness, thyromegaly Respiratory exam: PRESENT: symmetrical, unlabored. ABSENT: tachypnea, wheezes Cardiovascular exam: PRESENT: RRR, +S1, +S2 GI/Abdominal exam: PRESENT: soft. ABSENT: rebound, rigid, tenderness Extremities exam: ABSENT: joint swelling Musculoskeletal exam: PRESENT: full ROM Neurological exam: PRESENT: oriented to time, oriented to situation, CN II-XII grossly intact Focused psych exam: ABSENT: restlessness Skin exam: PRESENT: normal color. ABSENT: mottled, pallor, urticaria, vesicles Results Laboratory Results: 11/07/17 05:40 11/08/17 05:45 11/08/17 05:45 Sodium 142.5 Potassium 3.7 Chloride 109 H Carbon Dioxide 27 Anion Gap 7 BUN 3 L Creatinine 0.51 L Est GFR ( Amer) > 60 Est GFR (Non-Af Amer) > 60 Glucose 85 Calcium 8.5 Magnesium 1.8 11/04/17 05:10 Creatine Kinase 53 Impressions: Abdomen X-Ray 11/03/17 20:33 IMPRESSION: NO RADIOGRAPHIC EVIDENCE FOR ACUTE ABDOMINAL DISEASE. Chest X-Ray 11/05/17 00:00 IMPRESSION: CENTRAL VENOUS ACCESS CATHETER IN APPROPRIATE LOCATION. NO PNEUMOTHORAX. NEW CENTRAL LINE. Assessment & Plan - Diagnosis (1) Abdominal pain Qualifiers: Abdominal location: epigastric Qualified Code(s): R10.13 - Epigastric pain Is this a current diagnosis for this admission?: Yes Plan: etiology uncertain no evidence of ulcers previous imaging negative (2) Nausea and vomiting Qualifiers: Vomiting type: unspecified Vomiting Intractability: non-intractable Qualified Code(s): R11.2 - Nausea with vomiting, unspecified Is this a current diagnosis for this admission?: Yes Plan: gastric empyting study PPI and antiemetics for now ? possible central causes of her symptoms - Time Time Spent with patient: 15-24 minutes
[2017-11-08] MEDS: CLONAZEPAM 1 MG TABLET PO SCH (22:14)
[2017-11-08] MEDS: TEMAZEPAM 7.5 MG CAPSULE PO PRN (22:15)
--- NOTE | 2017-11-08 23:15 | RADIOLOGY REPORT (SQ) ---
EXAM DESCRIPTION: XR ABDOMEN 2 VIEWS SUPINE ERECT COMPLETED DATE/TME: 11/08/2017 22:36 CLINICAL HISTORY: 37 years Female, LLQ pain COMPARISON: None. NUMBER OF VIEWS/TECHNIQUE: 2 FINDINGS: Intestinal gas pattern is within normal limits. No suspicious calcification. Upper abdominal clips. Grossly intact skeletal structures. IMPRESSION: No acute findings.
[2017-11-09] MEDS: HYDROMORPHONE HCL INJ/PF 2 MG/ML AMPULE IV PRN ×3 (00:32→21:13)
[2017-11-09 01:03] LABS: ABSOLUTE EOSINOPHILS # (AUTO) 0.1 10^3/uL (0.0-0.6); ABSOLUTE LYMPHOCYTES (AUTO) 1.3 10^3/uL (0.5-4.7); ABSOLUTE MONOCYTES (AUTO) 0.4 10^3/uL (0.1-1.4); ABSOLUTE NEUT (AUTO) 1.9 10^3/uL (1.7-8.2); BASOPHILS % (AUTO) 0.7 % (0-2); EOSINOPHILS % (AUTO) 3.1 % (0-6); HEMATOCRIT 29.6 % (36.0-47.0); HEMOGLOBIN 10.2 g/dL (12.0-15.5); LYMPHOCYTES % (AUTO) 34.4 % (13-45); MEAN CORPUSCULAR HEMOGLOBIN 33.3 pg (27.0-33.4); MEAN CORPUSCULAR HGB CONC 34.4 g/dL (32.0-36.0); MEAN CORPUSCULAR VOLUME 97 fl (80-97); MONOCYTES % (AUTO) 11.6 % (3-13); PLATELET COUNT 164 10^3/uL (150-450); RED BLOOD COUNT 3.06 10^6/uL (3.72-5.28); RED CELL DISTRIBUTION WIDTH 12.8 % (11.5-14.0); SEGMENTED NEUTROPHILS % (AUTO) 50.2 % (42-78); TOTAL CELLS COUNTED % (AUTO) 100 %; WHITE BLOOD COUNT 3.7 10^3/uL (4.0-10.5)
[2017-11-09 01:16] LABS: ALANINE AMINOTRANSFERASE 60 U/L (9-52); ALBUMIN 3.1 g/dL (3.5-5.0); ALKALINE PHOSPHATASE 39 U/L (38-126); ANION GAP 8 (5-19); ASPARTATE AMINO TRANSFERASE 60 U/L (14-36); BILIRUBIN,DIRECT 0.2 mg/dL (0.0-0.4); BILIRUBIN,TOTAL 0.4 mg/dL (0.2-1.3); BLOOD UREA NITROGEN 3 mg/dL (7-20); CALCIUM 8.8 mg/dL (8.4-10.2); CARBON DIOXIDE 26 mmol/L (22-30); CHLORIDE 108 mmol/L (98-107); GLUCOSE 98 mg/dL (75-110); POTASSIUM 3.8 mmol/L (3.6-5.0); SODIUM 141.6 mmol/L (137-145); TOTAL PROTEIN 5.5 g/dL (6.3-8.2)
[2017-11-09] MEDS: OXYCODONE-ACETAMINOPHEN 5-325 MG TABLET PO PRN ×4 (03:23→22:46)
[2017-11-09] MEDS: LANSOPRAZOLE 30 MG TAB.RAP.DR PO SCH ×2 (07:01→16:48)
[2017-11-09 08:01] LABS: ANION GAP 8 (5-19); BLOOD UREA NITROGEN 3 mg/dL (7-20); CALCIUM 8.9 mg/dL (8.4-10.2); CARBON DIOXIDE 26 mmol/L (22-30); CHLORIDE 108 mmol/L (98-107); GLUCOSE 82 mg/dL (75-110); POTASSIUM 3.7 mmol/L (3.6-5.0); SODIUM 142.3 mmol/L (137-145)
--- NOTE | 2017-11-09 08:06 | PDOC PROGRESS REPORT ---
Subjective Progress Note for:: 11/09/17 Subjective:: Patient is still complaining of abdominal pain and nausea She ate broth last night and she kept it down She does not feel like she is ready to go home and she did not eat breakfast today because of her nausea She said she had previous gastric emptying studies that were abnormal and Dr. Jasso recommends to repeat the study She has a central line because she has very poor IV access and she is afraid that when she goes home and loses center line, will be difficult if she does not improve and comes back and needs IV access Reason For Visit: INTRACTABLE NAUSEA AND VOMITING Physical Exam Vital Signs: Temp Pulse Resp BP Pulse Ox 98.9 F 112 H 15 107/79 96 11/09/17 03:17 11/09/17 07:00 11/09/17 03:17 11/09/17 03:17 11/09/17 03:17 Intake & Output 11/08/17 11/09/17 11/10/17 06:59 06:59 06:59 Intake Total 4039 1653 Balance 4039 1653 Weight 112 lb 10.499 oz 113 lb 8.609 oz General appearance: PRESENT: no acute distress, well-developed, well-nourished Head exam: PRESENT: atraumatic, normocephalic Eye exam: PRESENT: conjunctiva pink, EOMI, PERRLA. ABSENT: scleral icterus Ear exam: PRESENT: normal external ear exam Mouth exam: PRESENT: moist, tongue midline Neck exam: ABSENT: carotid bruit, JVD, lymphadenopathy, thyromegaly Respiratory exam: PRESENT: clear to auscultation nella. ABSENT: rales, rhonchi, wheezes Cardiovascular exam: PRESENT: RRR. ABSENT: diastolic murmur, rubs, systolic murmur Pulses: PRESENT: normal dorsalis pedis pul Vascular exam: PRESENT: normal capillary refill GI/Abdominal exam: PRESENT: normal bowel sounds, soft, tenderness. ABSENT: mass , organolmegaly, rebound Rectal exam: PRESENT: deferred Extremities exam: PRESENT: full ROM. ABSENT: calf tenderness, clubbing, pedal edema Neurological exam: PRESENT: alert, awake, oriented to person, oriented to place , oriented to time, oriented to situation, CN II-XII grossly intact. ABSENT: motor sensory deficit Psychiatric exam: PRESENT: appropriate affect, normal mood. ABSENT: homicidal ideation, suicidal ideation Skin exam: PRESENT: dry, intact, warm. ABSENT: cyanosis, rash Results Laboratory Results: 11/08/17 00:28 11/08/17 11/08/17 00:28 00:28 WBC 3.7 L RBC 3.06 L Hgb 10.2 L Hct 29.6 L MCV 97 MCH 33.3 MCHC 34.4 RDW 12.8 Plt Count 164 Seg Neutrophils % 50.2 Lymphocytes % 34.4 Monocytes % 11.6 Eosinophils % 3.1 Basophils % 0.7 Absolute Neutrophils 1.9 Absolute Lymphocytes 1.3 Absolute Monocytes 0.4 Absolute Eosinophils 0.1 Absolute Basophils 0.0 Sodium 141.6 Potassium 3.8 Chloride 108 H Carbon Dioxide 26 Anion Gap 8 BUN 3 L Creatinine 0.48 L Est GFR ( Amer) > 60 Est GFR (Non-Af Amer) > 60 Glucose 98 Calcium 8.8 Total Bilirubin 0.4 AST 60 H ALT 60 H Alkaline Phosphatase 39 Total Protein 5.5 L Albumin 3.1 L 11/04/17 05:10 Creatine Kinase 53 Impressions: Chest X-Ray 11/05/17 00:00 IMPRESSION: CENTRAL VENOUS ACCESS CATHETER IN APPROPRIATE LOCATION. NO PNEUMOTHORAX. NEW CENTRAL LINE. Abdomen X-Ray 11/08/17 22:36 IMPRESSION: No acute findings. Assessment & Plan - Diagnosis (1) Abdominal pain Qualifiers: Abdominal location: epigastric Qualified Code(s): R10.13 - Epigastric pain Is this a current diagnosis for this admission?: Yes (3) Nausea and vomiting Qualifiers: Vomiting type: unspecified Vomiting Intractability: non-intractable Qualified Code(s): R11.2 - Nausea with vomiting, unspecified Is this a current diagnosis for this admission?: Yes - Plan Summary Plan Summary: Esophagitis/gastritis/duodenitis: Continue lansoprazole, Carafate. Follow-up results from gastric biopsies taken during EGD for H. pylori infection Hypokalemia and hypomagnesemia: Resolved after replacement. Continue to monitor levels Nausea, vomiting, abdominal pain: Treat symptomatically. Gastric emptying study today Severe metabolic acidosis: Resolved Pelvic congestion syndrome: Follow-up outpatient with PARTS FACILITATOR Seizure versus pseudoseizures: Ativan as needed. She should follow-up and keep her appointment was neurology as scheduled. Advance diet after the test today.
[2017-11-09] MEDS: SUCRALFATE SUSP 1 GM/10 ML UDCUP PO SCH ×4 (08:32→21:11)
[2017-11-09] MEDS: POTASSI CL 40 MEQ/NS 1L 1,000 ML IV PRN ×2 (08:34→21:56)
[2017-11-09] MEDS: METOCLOPRAMIDE HCL INJ/PF 10 MG/2 ML SDV IV PRN ×2 (08:34→16:48)
--- NOTE | 2017-11-09 17:08 | RADIOLOGY REPORT (SQ) ---
EXAM DESCRIPTION: NM GASTRIC EMPTYING STUDY COMPLETED DATE/TIME: 11/09/2017 4:47 pm REASON FOR STUDY: persistent nausea/vomiting COMPARISON: Abdominal films 11/08/2017 CT abdomen pelvis 10/24/2017 RADIONUCLIDE AND DOSE: 1.97 millicuries Tc-99m Sulfur Colloid. A wide variety of solid foods have been used. The route of agent administration: Oral. TECHNIQUE: 1 minute serial static imaging performed at time of meal, 1 hour, 2 hours, 3 hours, and 4 hours as needed. Once stomach reaches 90% emptying, the test is complete. Image intensity values plo tted with respect to time with linear regression algorithm. LIMITATIONS: None. FINDINGS: Patient was observed for 4 hours. Immediate post meal serves as baseline. Gastric emptying at 15 minutes was 7.7% Gastric emptying at 60 minutes was 15%. Gastric emptying at 90 minutes was 21%. Gastric emptying at 120 minutes was 27% Gastric emptying at 240 minutes was 47%. IMPRESSION: Delayed gastric emptying TECHNICAL DOCUMENTATION: JOB ID: [id number] [employer]- All Rights Reserved Reading location - IP/workstation name: [email or web address]
[2017-11-09] MEDS ORDERED: HYDROMORPHONE HCL INJ/PF 2 MG/ML AMPULE IV ONE (18:30)
[2017-11-09] MEDS: CLONAZEPAM 1 MG TABLET PO SCH (21:11)
[2017-11-09] MEDS: TEMAZEPAM 7.5 MG CAPSULE PO PRN (22:46)
[2017-11-10] MEDS: METOCLOPRAMIDE HCL INJ/PF 10 MG/2 ML SDV IV PRN ×3 (01:04→20:33)
[2017-11-10] MEDS: OXYCODONE-ACETAMINOPHEN 5-325 MG TABLET PO PRN ×5 (03:38→20:46)
[2017-11-10] MEDS: LANSOPRAZOLE 30 MG TAB.RAP.DR PO SCH ×2 (06:11→16:49)
[2017-11-10] MEDS: HYDROMORPHONE HCL INJ/PF 2 MG/ML AMPULE IV PRN ×3 (06:11→23:13)
--- NOTE | 2017-11-10 08:11 | PDOC PROGRESS REPORT ---
Subjective Progress Note for:: 11/10/17 Subjective:: Patient is still complaining of abdominal pain and nausea Abdominal pain is especially pronounced when she eats any food Her food intake is very minimal Gastric emptying study shows severe gastroparesis with 47% of the food remained in the stomach after 4 hours She has a central line because she has very poor IV access and she is afraid that when she goes home and loses center line, will be difficult if she does not improve and comes back and needs IV access Reason For Visit: INTRACTABLE NAUSEA AND VOMITING Physical Exam Vital Signs: Temp Pulse Resp BP Pulse Ox 98.2 F 87 16 105/72 99 11/10/17 07:15 11/10/17 07:15 11/10/17 07:15 11/10/17 07:15 11/10/17 07:15 Intake & Output 11/09/17 11/10/17 11/11/17 06:59 06:59 06:59 Intake Total 2653 1779 Balance 2653 1779 Weight 113 lb 8.609 oz 111 lb 12.39 oz General appearance: PRESENT: no acute distress, thin Head exam: PRESENT: atraumatic, normocephalic Eye exam: PRESENT: conjunctiva pink, EOMI, PERRLA. ABSENT: scleral icterus Ear exam: PRESENT: normal external ear exam Mouth exam: PRESENT: moist, tongue midline Neck exam: ABSENT: carotid bruit, JVD, lymphadenopathy, thyromegaly Respiratory exam: PRESENT: clear to auscultation nella. ABSENT: rales, rhonchi, wheezes Cardiovascular exam: PRESENT: RRR. ABSENT: diastolic murmur, rubs, systolic murmur Pulses: PRESENT: normal dorsalis pedis pul Vascular exam: PRESENT: normal capillary refill GI/Abdominal exam: PRESENT: normal bowel sounds, soft, tenderness Rectal exam: PRESENT: deferred Extremities exam: PRESENT: full ROM. ABSENT: calf tenderness, clubbing, pedal edema Neurological exam: PRESENT: alert, awake, oriented to person, oriented to place , oriented to time, oriented to situation, CN II-XII grossly intact. ABSENT: motor sensory deficit Psychiatric exam: PRESENT: appropriate affect, normal mood. ABSENT: homicidal ideation, suicidal ideation Skin exam: PRESENT: dry, intact, warm. ABSENT: cyanosis, rash Results Laboratory Results: 11/08/17 00:28 11/09/17 07:00 11/04/17 05:10 Creatine Kinase 53 Impressions: Chest X-Ray 11/05/17 00:00 IMPRESSION: CENTRAL VENOUS ACCESS CATHETER IN APPROPRIATE LOCATION. NO PNEUMOTHORAX. NEW CENTRAL LINE. Abdomen X-Ray 11/08/17 22:36 IMPRESSION: No acute findings. Gastric Emptying Nuclear Medicine 11/09/17 00:00 IMPRESSION: Delayed gastric emptying Assessment & Plan - Diagnosis (1) Abdominal pain Qualifiers: Abdominal location: epigastric Qualified Code(s): R10.13 - Epigastric pain Is this a current diagnosis for this admission?: Yes (3) Nausea and vomiting Qualifiers: Vomiting type: unspecified Vomiting Intractability: non-intractable Qualified Code(s): R11.2 - Nausea with vomiting, unspecified Is this a current diagnosis for this admission?: Yes - Plan Summary Plan Summary: Esophagitis/gastritis/duodenitis: Continue lansoprazole, Carafate. gastric biopsies taken during EGD negative for H. pylori Hypokalemia and hypomagnesemia: Resolved after replacement. Continue to monitor levels Severe gastroparesis: Continue Reglan. Patient educated about the side effects of Reglan. Severe metabolic acidosis: Resolved Pelvic congestion syndrome: Follow-up outpatient with INTERFACE ANALYST Seizure versus pseudoseizures: Ativan as needed. She should follow-up and keep her appointment was neurology as scheduled. Poor IV access: Patient needed a central line this admission for IV axis for rehydration. She was severely dehydrated on admission with severe metabolic acidosis and multiple electrolyte derangements. She wants to go home with a central line or PICC line which I explained to her that is not feasible. We discussed port placement and she agrees to that. We will consult surgery for that.
[2017-11-10] MEDS: SUCRALFATE SUSP 1 GM/10 ML UDCUP PO SCH ×4 (08:25→23:16)
[2017-11-10] MEDS: DOCUSATE SODIUM 100 MG CAPSULE PO SCH ×2 (10:05→20:33)
[2017-11-10] MEDS: POTASSI CL 40 MEQ/NS 1L 1,000 ML IV PRN (10:14)
--- NOTE | 2017-11-10 10:15 | PDOC PROGRESS REPORT ---
Subjective Progress Note for:: 11/10/17 Subjective:: delayed gastric emptying as noted. patient continues to have symptoms ? if patient should be on Reglan since ? some of neurological process with ? seizures patient may benefit from Botox injection however can only get done early next week, Sunday. other options include erythromycin to increase motility should avoid any medications that slows motility as well Reason For Visit: INTRACTABLE NAUSEA AND VOMITING Physical Exam Vital Signs: Temp Pulse Resp BP Pulse Ox 98.2 F 87 16 105/72 99 11/10/17 07:15 11/10/17 07:15 11/10/17 07:15 11/10/17 07:15 11/10/17 07:15 Intake & Output 11/09/17 11/10/17 11/11/17 06:59 06:59 06:59 Intake Total 2653 1779 Balance 2653 1779 Weight 51.5 kg 50.7 kg General appearance: PRESENT: mild distress, well-developed, well-nourished Head exam: PRESENT: atraumatic, normocephalic Eye exam: PRESENT: EOMI, PERRLA. ABSENT: nystagmus, periorbital swelling, scleral icterus Mouth exam: PRESENT: moist, neck supple Throat exam: ABSENT: tonsillar exudate, tonsillogmegaly Neck exam: ABSENT: meningismus, tenderness, thyromegaly Respiratory exam: PRESENT: symmetrical, unlabored. ABSENT: tachypnea, wheezes Cardiovascular exam: PRESENT: RRR, +S1, +S2 GI/Abdominal exam: PRESENT: soft. ABSENT: rebound, rigid, tenderness Extremities exam: ABSENT: joint swelling Musculoskeletal exam: PRESENT: full ROM Neurological exam: PRESENT: alert, oriented to time, oriented to situation, CN II-XII grossly intact Focused psych exam: ABSENT: restlessness Skin exam: PRESENT: normal color. ABSENT: mottled, pallor, urticaria, vesicles Results Laboratory Results: 11/08/17 00:28 11/09/17 07:00 11/04/17 05:10 Creatine Kinase 53 Impressions: Chest X-Ray 11/05/17 00:00 IMPRESSION: CENTRAL VENOUS ACCESS CATHETER IN APPROPRIATE LOCATION. NO PNEUMOTHORAX. NEW CENTRAL LINE. Abdomen X-Ray 11/08/17 22:36 IMPRESSION: No acute findings. Gastric Emptying Nuclear Medicine 11/09/17 00:00 IMPRESSION: Delayed gastric emptying Assessment & Plan - Diagnosis (1) Abdominal pain Qualifiers: Abdominal location: epigastric Qualified Code(s): R10.13 - Epigastric pain Is this a current diagnosis for this admission?: Yes (2) Nausea and vomiting Qualifiers: Vomiting type: unspecified Vomiting Intractability: non-intractable Qualified Code(s): R11.2 - Nausea with vomiting, unspecified Is this a current diagnosis for this admission?: Yes Plan: likely due to gastroparesis currently on Reglan but will need to be careful since tardive dyskinesia is a significant and non reversible side effect will order Botox thru the pharmacy if patient still not discharged by Sunday can plan on EGD with Botox injection which could offer another alternative erythromycin is another option to stimulate the motilin receptors of the GI tract alternatively medication mediction like Linzess to stimulate GC gut receptors may represent another option - Time Time Spent with patient: 15-24 minutes
[2017-11-10] MEDS: MAG HYDROX/AL HYDROX/SIMETH SUSP 30 ML UDCUP PO PRN (10:34)
[2017-11-10] MEDS: LORAZEPAM INJ 2 MG/1 ML VIAL IV PRN (10:43)
--- NOTE | 2017-11-10 15:27 | PDOC CONSULTATION ---
Consultation Consult Date: 11/10/17 Attending physician:: lianna Consult reason:: Port placement History of Present Illness Admission Date/PCP: 11/03/17 22:24 NORA CASANOVA DO History of Present Illness: TRAVIS HORVATH is a 37 year old female Hospitalized at [facility] for approximately 1 week for failure to thrive, repetitive nausea vomiting, weight loss and other constitutional symptoms. Please see her history and physical document. While hospitalized the patient is undergone extensive evaluation including CAT scanning, upper endoscopy, gastric emptying. Patient found to have mild gastritis, mild esophagitis, and delayed gastric emptying. According to sedations had with patient and primary care staff, patient has undergone evaluation in multiple hospitals in multiple states over the last several years for similar problems, with similar conclusions including psychogenic emesis, pharmacologically induced gastropathy, and other similar conditions. The patient states she has requested a port in the past but is never had one place because she moved to a different location. The had a central line placed hospitalist service. She remains malnourished with poor p.o. intake and is not put on weight. Patient's urine on admission was positive for multiple substances including cannabinoids, opiates, and amphetamines. Past Medical History Cardiac Medical History: Reports: Hypertension Denies: Coronary Artery Disease, Myocardial Infarction Pulmonary Medical History: Reports: Asthma - EXERCISE INDUCED Denies: Bronchitis, Chronic Obstructive Pulmonary Disease (COPD), Pneumonia Neurological Medical History: Reports: Seizures GI Medical History: Reports: Gastroesophageal Reflux Disease Musculoskeltal Medical History: Reports: Arthritis Psychiatric Medical History: Reports: Attention Deficit Hyperactivity Disorder, Depression Traumatic Medical History: Reports: Traumatic Brain Injury Hematology: Reports: Anemia Past Surgical History Past Surgical History: History of endometrial and/or ovarian ablation Past Surgical History: Reports: Appendectomy, Section - X3, Cholecystectomy, Orthopedic Surgery - L WRIST SCREW, ULNAR NERVE, Tubal Ligation , Other - H/S with uterine scar removed and apparent drain/balloon placement per pt Social History Lives with: Spouse/Significant other Smoking Status: Current Some Day Smoker Frequency of Alcohol Use: Occasional Hx Recreational Drug Use: No Drugs: None Hx Prescription Drug Abuse: No - Advance Directive Resuscitation Status: Full Code Family History Family History: Reviewed & Not Pertinent Parental Family History Reviewed: Yes Children Family History Reviewed: Yes Sibling(s) Family History Reviewed.: Yes Medication/Allergy Home Medications: Clonazepam [Klonopin] 1 mg PO QHS 11/04/17 Dextroamphetamine/Amphetamine [Adderall Xr 30 mg Capsule] 30 mg PO BID 11/04/17 Allergies/Adverse Reactions: Heparin Analogues [Heparin Agents] Allergy (Verified 11/03/17 17:16) latex [Latex] Allergy (Verified 11/03/17 17:16) TROUBLE BREATHING, RED RASH meperidine HCl [From Demerol] Allergy (Verified 11/03/17 17:16) morphine [Morphine] Allergy (Verified 11/03/17 17:16) ondansetron HCl [From Zofran] Allergy (Verified 11/03/17 17:16) scopolamine Allergy (Verified 11/03/17 17:16) promethazine HCl [From Phenergan] Adverse Reaction (Verified 11/03/17 17:16) Review of Systems All systems: reviewed and no additional remarkable complaints except as stated Physical Exam Vital Signs: Temp Pulse Resp BP Pulse Ox 98.3 F 84 12 90/52 L 98 11/10/17 11:23 11/10/17 11:23 11/10/17 11:23 11/10/17 11:23 11/10/17 11:23 Intake & Output 11/09/17 11/10/17 11/11/17 06:59 06:59 06:59 Intake Total 2653 1779 923 Balance 2653 1779 923 Weight 51.5 kg 50.7 kg General appearance: PRESENT: no acute distress Head exam: PRESENT: normocephalic Eye exam: PRESENT: EOMI Ear exam: PRESENT: normal external ear exam Neck exam: PRESENT: other - Right IJ catheter taped into position Respiratory exam: PRESENT: clear to auscultation nella Pulses: PRESENT: normal carotid pulses, normal radial pulses, normal dorsalis pedis pul GI/Abdominal exam: PRESENT: other - Scars consistent with previous surgery; no peritoneal signs no rigidity Rectal exam: PRESENT: deferred Extremities exam: PRESENT: full ROM Neurological exam: PRESENT: alert, awake, oriented to person, oriented to place , oriented to time Psychiatric exam: PRESENT: anxious Results Laboratory Results: 11/08/17 00:28 11/09/17 07:00 11/04/17 05:10 Creatine Kinase 53 Impressions: Chest X-Ray 11/05/17 00:00 IMPRESSION: CENTRAL VENOUS ACCESS CATHETER IN APPROPRIATE LOCATION. NO PNEUMOTHORAX. NEW CENTRAL LINE. Abdomen X-Ray 11/08/17 22:36 IMPRESSION: No acute findings. Gastric Emptying Nuclear Medicine 11/09/17 00:00 IMPRESSION: Delayed gastric emptying Assessment & Plan - Diagnosis (1) Abdominal pain Qualifiers: Abdominal location: epigastric Qualified Code(s): R10.13 - Epigastric pain Is this a current diagnosis for this admission?: Yes Plan: Chronic, recurrent, etiology remains elusive; sequential abnormal gastric emptying studies at different institutions Recommendations: 1. I saw the patient on 2 occasions, both times on Sunday, November 10 while on-call, constantly being erupted by emergency phone calls. I had the opportunity to review her record and discussed her case with the hospitalist on- call, as well as nursing staff. 2. The patient is very anxious and insistent about getting a port; I am concerned that she has been declined a port in the past by other providers; furthermore a port is not without potential side effects such as pocket infection, port malfunction, and DVT. In addition I am concerned that the port may be used for purposes other than for what is intended; lastly, other conduits for nutritional and medical support such as Dobbhoff feeding tube or even operative feeding tube may be appropriate to consider in this patient. 3. I explained to the patient why I chose not to place a port in her. She is somewhat despondent and wanted to see another surgeon. I told her another surgeon would be available on Sunday, and he could render an opinion regarding appropriateness of port placement. In the interim I told patient it would not be appropriate for me to contact another surgeon over the Sunday weekend under these non-emergent circumstances. Furthermore I suggested that if she did require line insertion on a subsequent visit that another temporary catheter could be inserted. (2) Smoker Is this a current diagnosis for this admission?: Yes (3) History of substance abuse Is this a current diagnosis for this admission?: Yes (5) Metabolic acidosis Is this a current diagnosis for this admission?: Yes - Time Time Spent: 50 to 70 Minutes Smoking Cessation Education: over 10 minutes Medications reviewed and adjusted accordingly: Yes Anticipated discharge: Home
[2017-11-10] MEDS ORDERED: TRAZODONE HCL 50 MG TABLET PO PRN (22:35)
[2017-11-10] MEDS: CLONAZEPAM 1 MG TABLET PO SCH (23:15)
[2017-11-11] MEDS: POTASSI CL 40 MEQ/NS 1L 1,000 ML IV PRN ×2 (00:15→13:54)
[2017-11-11] MEDS: OXYCODONE-ACETAMINOPHEN 5-325 MG TABLET PO PRN ×6 (01:58→21:52)
[2017-11-11] MEDS: TEMAZEPAM 7.5 MG CAPSULE PO PRN (02:21)
[2017-11-11] MEDS: LANSOPRAZOLE 30 MG TAB.RAP.DR PO SCH ×2 (05:20→16:12)
[2017-11-11] MEDS: METOCLOPRAMIDE HCL INJ/PF 10 MG/2 ML SDV IV PRN ×3 (05:20→22:02)
[2017-11-11 06:07] LABS: HEMATOCRIT 33.6 % (36.0-47.0); HEMOGLOBIN 11.7 g/dL (12.0-15.5); MEAN CORPUSCULAR HEMOGLOBIN 33.8 pg (27.0-33.4); MEAN CORPUSCULAR VOLUME 97 fl (80-97); PLATELET COUNT 199 10^3/uL (150-450); RED BLOOD COUNT 3.48 10^6/uL (3.72-5.28); RED CELL DISTRIBUTION WIDTH 13.1 % (11.5-14.0); WHITE BLOOD COUNT 4.1 10^3/uL (4.0-10.5)
[2017-11-11 06:23] LABS: ALANINE AMINOTRANSFERASE 54 U/L (9-52); ALBUMIN 3.6 g/dL (3.5-5.0); ALKALINE PHOSPHATASE 55 U/L (38-126); ANION GAP 11 (5-19); ASPARTATE AMINO TRANSFERASE 36 U/L (14-36); BILIRUBIN,DIRECT 0.1 mg/dL (0.0-0.4); BILIRUBIN,TOTAL 0.1 mg/dL (0.2-1.3); BLOOD UREA NITROGEN 6 mg/dL (7-20); CALCIUM 9.4 mg/dL (8.4-10.2); CARBON DIOXIDE 24 mmol/L (22-30); CHLORIDE 106 mmol/L (98-107); GLUCOSE 97 mg/dL (75-110); POTASSIUM 3.9 mmol/L (3.6-5.0); SODIUM 140.5 mmol/L (137-145); TOTAL PROTEIN 6.3 g/dL (6.3-8.2)
[2017-11-11] MEDS: HYDROMORPHONE HCL INJ/PF 2 MG/ML AMPULE IV PRN ×2 (08:01→16:12)
[2017-11-11] MEDS: SUCRALFATE SUSP 1 GM/10 ML UDCUP PO SCH ×4 (08:01→21:52)
--- NOTE | 2017-11-11 08:01 | PDOC PROGRESS REPORT ---
Subjective Progress Note for:: 11/11/17 Subjective:: Patient is still complaining of abdominal pain and nausea Abdominal pain is especially pronounced when she eats any food Her food intake is still very minimal She vomited twice last night, this was unwitnessed gastric emptying study shows severe gastroparesis with 47% of the food remained in the stomach after 4 hours She was declined port placement and she is upset about that Reason For Visit: INTRACTABLE NAUSEA AND VOMITING Physical Exam Vital Signs: Temp Pulse Resp BP Pulse Ox 98.6 F 50 L 16 112/75 97 11/11/17 04:26 11/11/17 04:26 11/10/17 15:14 11/11/17 04:26 11/11/17 04:26 Intake & Output 11/10/17 11/11/17 11/12/17 06:59 06:59 06:59 Intake Total 1779 2307 Balance 1779 2307 Weight 111 lb 12.39 oz 107 lb 2.314 oz General appearance: PRESENT: no acute distress, thin Head exam: PRESENT: atraumatic, normocephalic Eye exam: PRESENT: conjunctiva pink, EOMI, PERRLA. ABSENT: scleral icterus Ear exam: PRESENT: normal external ear exam Mouth exam: PRESENT: moist, tongue midline Neck exam: ABSENT: carotid bruit, JVD, lymphadenopathy, thyromegaly Respiratory exam: PRESENT: clear to auscultation nella. ABSENT: rales, rhonchi, wheezes Cardiovascular exam: PRESENT: RRR. ABSENT: diastolic murmur, rubs, systolic murmur Pulses: PRESENT: normal dorsalis pedis pul Vascular exam: PRESENT: normal capillary refill GI/Abdominal exam: PRESENT: normal bowel sounds, soft, tenderness. ABSENT: distended, guarding, mass, organolmegaly, rebound Rectal exam: PRESENT: deferred Extremities exam: PRESENT: full ROM. ABSENT: calf tenderness, clubbing, pedal edema Neurological exam: PRESENT: alert, awake, oriented to person, oriented to place , oriented to time, oriented to situation, CN II-XII grossly intact. ABSENT: motor sensory deficit Psychiatric exam: PRESENT: appropriate affect, normal mood. ABSENT: homicidal ideation, suicidal ideation Skin exam: PRESENT: dry, intact, warm. ABSENT: cyanosis, rash Results Laboratory Results: 11/11/17 05:00 11/11/17 05:00 11/11/17 11/11/17 05:00 05:00 WBC 4.1 RBC 3.48 L Hgb 11.7 L Hct 33.6 L MCV 97 MCH 33.8 H MCHC 35.0 RDW 13.1 Plt Count 199 Sodium 140.5 Potassium 3.9 Chloride 106 Carbon Dioxide 24 Anion Gap 11 BUN 6 L Creatinine 0.55 Est GFR ( Amer) > 60 Est GFR (Non-Af Amer) > 60 Glucose 97 Calcium 9.4 Total Bilirubin 0.1 L AST 36 ALT 54 H Alkaline Phosphatase 55 Total Protein 6.3 Albumin 3.6 11/04/17 05:10 Creatine Kinase 53 Impressions: Chest X-Ray 11/05/17 00:00 IMPRESSION: CENTRAL VENOUS ACCESS CATHETER IN APPROPRIATE LOCATION. NO PNEUMOTHORAX. NEW CENTRAL LINE. Abdomen X-Ray 11/08/17 22:36 IMPRESSION: No acute findings. Gastric Emptying Nuclear Medicine 11/09/17 00:00 IMPRESSION: Delayed gastric emptying Assessment & Plan - Diagnosis (1) Abdominal pain Qualifiers: Abdominal location: epigastric Qualified Code(s): R10.13 - Epigastric pain Is this a current diagnosis for this admission?: Yes (3) Nausea and vomiting Qualifiers: Vomiting type: unspecified Vomiting Intractability: non-intractable Qualified Code(s): R11.2 - Nausea with vomiting, unspecified Is this a current diagnosis for this admission?: Yes - Plan Summary Plan Summary: Esophagitis/gastritis/duodenitis: Continue lansoprazole, Carafate. gastric biopsies taken during EGD negative for H. pylori Hypokalemia and hypomagnesemia: Resolved after replacement. Continue to monitor levels Severe gastroparesis: Continue Reglan. Patient educated about the side effects of Reglan. Dr. Jasso is considering Botox injections probably on Sunday Severe metabolic acidosis: Resolved Pelvic congestion syndrome: Follow-up outpatient with ENVIRONMENTAL HEALTH MANAGER Seizure versus pseudoseizures: Ativan as needed. She should follow-up and keep her appointment was neurology as scheduled. A couple of days ago she showed me a video of her having a seizure. This was on her house on her bed surrounded by all her family. To me it did not look like a seizure. She was laying on bed bag and on the bed with her right hand and moving her shoulder in a rhythmic movement and she pauses to rest and she goes back at it again. Poor IV access: Patient needed a central line this admission for IV access for rehydration. She was severely dehydrated on admission with severe metabolic acidosis and multiple electrolyte derangements. She wants to go home with a central line or PICC line which I explained to her that is not feasible. Dr. Brown was consulted for port placement and the patient was declined the procedure because she is unreliable and there is risk for abuse and also the port comes with potential risks and complications. There is for sure psych problems with this patient which may be addressed outpatient. I agree with Dr. Brown assessment. She wants a second opinion which will not be available until Sunday or Sunday.
[2017-11-11] MEDS: DOCUSATE SODIUM 100 MG CAPSULE PO SCH ×2 (09:36→17:45)
[2017-11-11] MEDS ORDERED: HYDROCORTISONE 1% CREAM 28.35 GM TP PRN (17:16)
[2017-11-11] MEDS: DRONABINOL 2.5 MG CAPSULE PO SCH (17:45)
[2017-11-11] MEDS: PANTOPRAZOLE SODIUM 40 MG VIAL IV SCH (21:52)
[2017-11-11] MEDS ORDERED: CLONAZEPAM 1 MG TABLET PO ONE (22:45)
[2017-11-12] MEDS: TEMAZEPAM 7.5 MG CAPSULE PO PRN (00:12)
[2017-11-12] MEDS: HYDROMORPHONE HCL INJ/PF 2 MG/ML AMPULE IV PRN ×3 (00:13→16:24)
[2017-11-12] MEDS: OXYCODONE-ACETAMINOPHEN 5-325 MG TABLET PO PRN ×5 (02:13→20:17)
[2017-11-12] MEDS: POTASSI CL 40 MEQ/NS 1L 1,000 ML IV PRN ×2 (03:24→16:45)
[2017-11-12] MEDS: LANSOPRAZOLE 30 MG TAB.RAP.DR PO SCH ×2 (06:24→16:43)
[2017-11-12] MEDS: METOCLOPRAMIDE HCL INJ/PF 10 MG/2 ML SDV IV PRN ×2 (06:41→16:43)
[2017-11-12] MEDS: SUCRALFATE SUSP 1 GM/10 ML UDCUP PO SCH ×4 (08:10→22:40)
[2017-11-12] MEDS ORDERED: MEDROXYPROGESTERONE ACET 10 MG TABLET PO SCH (10:30)
--- NOTE | 2017-11-12 10:36 | PDOC CONSULTATION ---
Consultation Consult Date: 11/12/17 Consult reason:: Pelvic Congestion Syndrome History of Present Illness Admission Date/PCP: 11/03/17 22:24 NORA CASANOVA DO History of Present Illness: TRAVIS HORVATH is a 37 year old female admitted on 11/03 (4 days after consult in ER) for intractable n/v. Pt seen in ER on 10/30/2017 by LEHR CUTTER for pelvic congestion syndrome and associated pain. She was recommended to f/u as outpatient since [facility] would not take ER transfer for outpatient procedure. She was then admitted by hospitalist on 11/03 for n/v intractable and has underwent EGD and was declined PORT placement. Noted to have gastroparesis. She is awaiting 2nd opinion. I spoke with hospitalist and they would like assistance with Pelvic Congestion syndrome. Pt not seen again since consult was recently and complaint of PCS and pelvic pain unchanged and recommendations are therefore the same needs IR procedure as outpatient since progesterone management does not acutely help pain. Past Medical History Gynecological Infection: No Cardiac Medical History: Reports: Hypertension Denies: Coronary Artery Disease, Myocardial Infarction Pulmonary Medical History: Reports: Asthma - EXERCISE INDUCED Denies: Bronchitis, Chronic Obstructive Pulmonary Disease (COPD), Pneumonia Neurological Medical History: Reports: Seizures GI Medical History: Reports: Gastroesophageal Reflux Disease Musculoskeltal Medical History: Reports: Arthritis Psychiatric Medical History: Reports: Attention Deficit Hyperactivity Disorder, Depression Traumatic Medical History: Reports: Traumatic Brain Injury Social History Lives with: Spouse/Significant other Smoking Status: Current Some Day Smoker Frequency of Alcohol Use: Occasional Hx Recreational Drug Use: No Drugs: None Hx Prescription Drug Abuse: No - Advance Directive Resuscitation Status: Full Code Family History Family History: Reviewed & Not Pertinent Parental Family History Reviewed: No Children Family History Reviewed: NA Sibling(s) Family History Reviewed.: NA Medication/Allergy Home Medications: Clonazepam [Klonopin] 1 mg PO QHS 11/04/17 Dextroamphetamine/Amphetamine [Adderall Xr 30 mg Capsule] 30 mg PO BID 11/04/17 Allergies/Adverse Reactions: Heparin Analogues [Heparin Agents] Allergy (Verified 11/03/17 17:16) latex [Latex] Allergy (Verified 11/03/17 17:16) TROUBLE BREATHING, RED RASH meperidine HCl [From Demerol] Allergy (Verified 11/03/17 17:16) morphine [Morphine] Allergy (Verified 11/03/17 17:16) ondansetron HCl [From Zofran] Allergy (Verified 11/03/17 17:16) scopolamine Allergy (Verified 11/03/17 17:16) promethazine HCl [From Phenergan] Adverse Reaction (Verified 11/03/17 17:16) Review of Systems Constitutional: ABSENT: chills, fever(s), headache(s), weight gain, weight loss Neurological: PRESENT: as per HPI, abnormal speech Physical Exam - Physical Exam Vital Signs: Temp Pulse Resp BP Pulse Ox 98.5 F 84 14 103/51 L 100 11/12/17 08:07 11/12/17 08:07 11/12/17 08:07 11/12/17 08:07 11/12/17 08:07 Intake & Output 11/11/17 11/12/17 11/13/17 06:59 06:59 06:59 Intake Total 2307 3038 Balance 2307 3038 Weight 48.6 kg 48 kg General appearance: PRESENT: other - see consultation from 10/30/2017 Result Laboratory Results: 11/11/17 05:00 11/11/17 05:00 11/04/17 05:10 Creatine Kinase 53 Impressions: Chest X-Ray 11/05/17 00:00 IMPRESSION: CENTRAL VENOUS ACCESS CATHETER IN APPROPRIATE LOCATION. NO PNEUMOTHORAX. NEW CENTRAL LINE. Abdomen X-Ray 11/08/17 22:36 IMPRESSION: No acute findings. Gastric Emptying Nuclear Medicine 11/09/17 00:00 IMPRESSION: Delayed gastric emptying Status: Imported from PACS Assessment & Plan - Diagnosis (1) Pelvic congestion syndrome Is this a current diagnosis for this admission?: Yes Plan: This is a current diagnosis but other medical issues are taking priority at this time. Reviewed with hospitalist who is caring for the patient and reviewed recommendations: Progesterone (either po or IM) NSAIDs (if not contraindicated due to other medical issues) Narcotics if necessary but may exacerbate other medical issuess IR procedure to occlude vessels as outpatient. In light of Intractable n/v and other medical issues will write for DepotProvera and would consider when pt is able to tolerate po to transition to po medroxyprogesterone 50mg po daily with interval outpatient f/u with IR for procedure as indicated. - Time Medications reviewed and adjusted accordingly: Yes Anticipated discharge: Home Within: Other - as per primary - Inpatient Certification Based on my medical assessment, after consideration of the patient's comorbidities, presenting symptoms, or acuity I expect that the services needed warrant INPATIENT care.: Yes I certify that my determination is in accordance with my understanding of Medicare's requirements for reasonable and necessary INPATIENT services [42 CFR 412.3e].: Yes Medical Necessity: Failure to Improve With Outpatient Therapy, Need For IV Fluids, Need for Pain Control
[2017-11-12] MEDS: DRONABINOL 2.5 MG CAPSULE PO SCH ×2 (10:40→18:28)
[2017-11-12] MEDS: PANTOPRAZOLE SODIUM 40 MG VIAL IV SCH (10:40)
[2017-11-12] MEDS: DOCUSATE SODIUM 100 MG CAPSULE PO SCH ×2 (10:40→18:28)
[2017-11-12] MEDS ORDERED: MEDROXYPROGESTERONE ACET INJ 150 MG/1 ML VIAL IM ONE (11:00)
--- NOTE | 2017-11-12 17:17 | PDOC PROGRESS REPORT ---
Subjective Progress Note for:: 11/12/17 - Seen on rounds this afternoon Subjective:: Patient states that she continues to have some abdominal pain and the medications are helping but she is worried about going home and having dehydration again. She is concerned that her nutrition is not enough because she cannot tolerate food. States she can eat but then she gets nauseous Reason For Visit: INTRACTABLE NAUSEA AND VOMITING Physical Exam Vital Signs: Temp Pulse Resp BP Pulse Ox 98.2 F 100 18 111/75 100 11/12/17 12:11 11/12/17 12:11 11/12/17 12:11 11/12/17 12:11 11/12/17 12:11 Intake & Output 11/11/17 11/12/17 11/13/17 06:59 06:59 06:59 Intake Total 2307 3038 Balance 2307 3038 Weight 107 lb 2.314 oz 105 lb 13.15 oz General appearance: PRESENT: no acute distress, thin, other - Malnourished and cachectic appearing Head exam: PRESENT: atraumatic, normocephalic Eye exam: PRESENT: EOMI, PERRLA. ABSENT: scleral icterus Ear exam: PRESENT: normal external ear exam Mouth exam: PRESENT: tongue midline Neck exam: ABSENT: tracheal deviation Respiratory exam: PRESENT: clear to auscultation nella, symmetrical Cardiovascular exam: PRESENT: +S1, +S2 Pulses: PRESENT: +2 pedal pulses bilateral GI/Abdominal exam: PRESENT: normal bowel sounds, soft, tenderness - Mild epigastric tenderness to palpation Extremities exam: ABSENT: joint swelling, pedal edema Musculoskeletal exam: ABSENT: tenderness Neurological exam: PRESENT: alert, awake, oriented to person, oriented to place , oriented to time, oriented to situation, CN II-XII grossly intact Skin exam: PRESENT: dry, warm Results Laboratory Results: 11/11/17 05:00 11/11/17 05:00 11/04/17 05:10 Creatine Kinase 53 Impressions: Chest X-Ray 11/05/17 00:00 IMPRESSION: CENTRAL VENOUS ACCESS CATHETER IN APPROPRIATE LOCATION. NO PNEUMOTHORAX. NEW CENTRAL LINE. Abdomen X-Ray 11/08/17 22:36 IMPRESSION: No acute findings. Gastric Emptying Nuclear Medicine 11/09/17 00:00 IMPRESSION: Delayed gastric emptying Assessment & Plan - Diagnosis (1) Chronic generalized abdominal pain Is this a current diagnosis for this admission?: Yes Plan: Her abdominal pain is multifactorial-EGD done during this visit shows esophagitism, gastritis and duodenitis and she was started on Carafate and PPIs. She also has pelvic congestion syndrome and CIVILIAN JAIL OFFICER was consulted and recommended medications for that. She is also been recommended outpatient follow-up for further workup and treatment. Her third problem causing her abdominal pain is gastroparesis and she had a gastric emptying study done showing delayed gastric emptying. She was recommended possible Botox injections for this. I had a long conversation with her today regarding her gastroparesis and lifestyle and diet modifications along with follow-up with a GI specialist who is proficient at gastroparesis. I will also ordered an A1c to check for diabetes-as of now I am not clear what caused her gastroparesis. She is currently on Reglan and Marinol for her nausea/vomiting and yesterday. She tells me that she is allergic to Zofran and promethazine. She tells me that Compazine does not work for either. I am unable to verify any of her allergies. She is also allergic to morphine and hence currently getting Dilaudid and I have spoken to her about the use of narcotics given her gastroparesis. I have counseled and educated her on the adverse/side effects of using narcotics and GI symptoms. She understands the risks of her decision but wants to continue on Dilaudid. (2) Dehydration Is this a current diagnosis for this admission?: Yes Plan: She tells me that she is unable to tolerate liquid and gets nauseous and has to throw up. He tells me it is due to her gastroparesis likely. This is causing her dehydration and coming to the ER frequently she tells me. Prior to me assuming care of this patient today she tells me that surgery was consulted to place port by the hospitalist to give access to give quick IV fluid hydration and poor peripheral access. Surgery came to see her initially and declined due to concern for IV drug use but today different surgeon came to evaluate her and she is approved placing a port. There was concern about IV drug use and IV access being placed such as a port. Her urine was positive for amphetamines and benzos-but she is on Adderall and Klonopin at home so it is difficult to assess whether she is abusing illicit drugs at home or not. She tells me that she does not smoke except for marijuana, does not drink and does not abuse illicit drugs. At this point surgeon has agreed to place port so that in the future she can get IV hydration quickly through the port. (3) Esophagitis Is this a current diagnosis for this admission?: Yes (4) Gastroparesis Is this a current diagnosis for this admission?: Yes Plan: See plan above for general abdominal pain (5) Nausea and vomiting Qualifiers: Vomiting type: unspecified Vomiting Intractability: non-intractable Qualified Code(s): R11.2 - Nausea with vomiting, unspecified Is this a current diagnosis for this admission?: Yes Plan: See plan above for general abdominal pain (6) Pelvic congestion syndrome Is this a current diagnosis for this admission?: Yes Plan: Evaluated by CIVILIAN JAIL OFFICER-I appreciate their assistance in this matter. She will need outpatient workup - Plan Summary Plan Summary: She can likely be discharged in 1-2 days after port has been placed
[2017-11-12] MEDS: MAG HYDROX/AL HYDROX/SIMETH SUSP 30 ML UDCUP PO PRN (20:18)
[2017-11-12] MEDS: CLONAZEPAM 1 MG TABLET PO SCH (22:40)
[2017-11-13] MEDS: OXYCODONE-ACETAMINOPHEN 5-325 MG TABLET PO PRN ×3 (01:21→21:51)
[2017-11-13] MEDS: TEMAZEPAM 7.5 MG CAPSULE PO PRN (01:21)
[2017-11-13] MEDS: HYDROMORPHONE HCL INJ/PF 2 MG/ML AMPULE IV PRN ×3 (01:56→20:38)
[2017-11-13] MEDS: LANSOPRAZOLE 30 MG TAB.RAP.DR PO SCH ×2 (06:47→18:12)
[2017-11-13] MEDS: POTASSI CL 40 MEQ/NS 1L 1,000 ML IV PRN (07:33)
--- NOTE | 2017-11-13 09:30 | PDOC PROGRESS REPORT ---
Subjective Progress Note for:: 11/13/17 Subjective:: Patient continue to request Dilaudid which is a narcotic that is in some part contributing to her gastroparesis she is not a candidate for Botox injection, since that is only used in patients with gastroparesis without the use of narcotics Botox may make the situation worse. she can have follow up with GI at a tertiary institution since the have specialists in gastroparesis there. Reason For Visit: INTRACTABLE NAUSEA AND VOMITING Physical Exam Vital Signs: Temp Pulse Resp BP Pulse Ox 98.5 F 72 18 101/55 L 100 11/13/17 04:02 11/13/17 07:00 11/13/17 04:02 11/13/17 04:02 11/13/17 04:02 Intake & Output 11/12/17 11/13/17 11/14/17 06:59 06:59 06:59 Intake Total 3038 4846 Balance 3038 4846 Weight 48 kg 46.7 kg General appearance: PRESENT: mild distress Head exam: PRESENT: atraumatic, normocephalic Eye exam: PRESENT: EOMI, PERRLA. ABSENT: nystagmus, scleral icterus Mouth exam: PRESENT: moist, neck supple Throat exam: ABSENT: tonsillar exudate, tonsillogmegaly Neck exam: ABSENT: meningismus, tenderness Respiratory exam: PRESENT: symmetrical, unlabored. ABSENT: tachypnea, wheezes Cardiovascular exam: PRESENT: RRR, +S1, +S2 GI/Abdominal exam: PRESENT: soft. ABSENT: rebound, rigid, tenderness Extremities exam: ABSENT: joint swelling Musculoskeletal exam: PRESENT: full ROM Neurological exam: PRESENT: oriented to time, oriented to situation, CN II-XII grossly intact Focused psych exam: ABSENT: restlessness Skin exam: PRESENT: normal color. ABSENT: mottled, pallor, urticaria, vesicles Results Laboratory Results: 11/11/17 05:00 11/11/17 05:00 11/04/17 05:10 Creatine Kinase 53 Impressions: Chest X-Ray 11/05/17 00:00 IMPRESSION: CENTRAL VENOUS ACCESS CATHETER IN APPROPRIATE LOCATION. NO PNEUMOTHORAX. NEW CENTRAL LINE. Abdomen X-Ray 11/08/17 22:36 IMPRESSION: No acute findings. Gastric Emptying Nuclear Medicine 11/09/17 00:00 IMPRESSION: Delayed gastric emptying Assessment & Plan - Diagnosis (1) Abdominal pain Qualifiers: Abdominal location: epigastric Qualified Code(s): R10.13 - Epigastric pain Is this a current diagnosis for this admission?: Yes (2) Nausea and vomiting Qualifiers: Vomiting type: unspecified Vomiting Intractability: non-intractable Qualified Code(s): R11.2 - Nausea with vomiting, unspecified Is this a current diagnosis for this admission?: Yes Plan: due to use of narcotics documented gastroparesis but results may not reflect a problem since on medications that will affect motility therefore not a candidate for Botox injection follow up with GI at tertiary institution as per the hospitalist MD - Time Time Spent with patient: 15-24 minutes
[2017-11-13] MEDS: DOCUSATE SODIUM 100 MG CAPSULE PO SCH ×2 (10:18→18:12)
[2017-11-13] MEDS: DRONABINOL 2.5 MG CAPSULE PO SCH ×2 (10:18→20:38)
[2017-11-13] MEDS: SUCRALFATE SUSP 1 GM/10 ML UDCUP PO SCH ×4 (10:18→23:37)
[2017-11-13] MEDS ORDERED: SUCCINYLCHOLINE CHLORIDE INJ 200 MG/10 ML VIAL ONE (11:26)
--- NOTE | 2017-11-13 11:56 | PDOC PROGRESS REPORT ---
Subjective Progress Note for:: 11/13/17 Subjective:: This is a 37-year-old female with a long history of chronic pancreatitis, severe gastroparesis, and approximately 20-30 pound weight loss over the last 2 months. The patient reports that she still cannot hold anything down. She is requiring IV hydration. She denies chest pain, fevers, chills, shortness of breath, headache. She does report nausea, vomiting, dizziness, malaise, fatigue , orthostasis, inattentiveness. Reason For Visit: INTRACTABLE NAUSEA AND VOMITING Physical Exam Vital Signs: Temp Pulse Resp BP Pulse Ox 98.5 F 72 18 101/55 L 100 11/13/17 04:02 11/13/17 07:00 11/13/17 04:02 11/13/17 04:02 11/13/17 04:02 Intake & Output 11/12/17 11/13/17 11/14/17 06:59 06:59 06:59 Intake Total 3038 4846 Balance 3038 4846 Weight 48 kg 46.7 kg General appearance: PRESENT: thin Head exam: PRESENT: atraumatic, normocephalic Eye exam: PRESENT: EOMI, PERRLA. ABSENT: scleral icterus Mouth exam: PRESENT: moist, neck supple Neck exam: ABSENT: meningismus, tenderness, thyromegaly, tracheal deviation Respiratory exam: PRESENT: unlabored. ABSENT: accessory muscle use, chest wall tenderness, tachypnea, wheezes Cardiovascular exam: PRESENT: RRR Pulses: PRESENT: normal radial pulses Vascular exam: ABSENT: pallor GI/Abdominal exam: PRESENT: soft, tenderness - Mild. ABSENT: distended, rigid Extremities exam: ABSENT: clubbing, pedal edema Musculoskeletal exam: PRESENT: normal inspection. ABSENT: deformity Neurological exam: PRESENT: alert, awake, oriented to person, oriented to place , oriented to time, oriented to situation, CN II-XII grossly intact. ABSENT: motor sensory deficit Psychiatric exam: PRESENT: anxious, depressed. ABSENT: agitated Focused psych exam: ABSENT: delusional Skin exam: ABSENT: cyanosis, erythema, jaundice Results Laboratory Results: 11/11/17 05:00 11/11/17 05:00 11/04/17 05:10 Creatine Kinase 53 Impressions: Chest X-Ray 11/05/17 00:00 IMPRESSION: CENTRAL VENOUS ACCESS CATHETER IN APPROPRIATE LOCATION. NO PNEUMOTHORAX. NEW CENTRAL LINE. Abdomen X-Ray 11/08/17 22:36 IMPRESSION: No acute findings. Gastric Emptying Nuclear Medicine 11/09/17 00:00 IMPRESSION: Delayed gastric emptying Assessment & Plan - Diagnosis (1) Chronic pancreatitis Qualifiers: Pancreatitis type: idiopathic Qualified Code(s): K86.1 - Other chronic pancreatitis Is this a current diagnosis for this admission?: Yes (3) Gastroparesis Is this a current diagnosis for this admission?: Yes - Plan Summary Plan Summary: This is a 37-year-old female with chronic pancreatitis, severe gastritis, and gastroparesis. She is unable to hold anything down. She has been losing significant amounts of weight over the last 2-3 months. The patient is in need of some form of enteral nutrition. I recommended jejunostomy tube placement. This will bypass the stomach and pancreas, and feed directly into the jejunum. This is a much better source of nutrition than TPN. Plan for feeding jejunostomy in the near future. Risks/benefits discussed, informed consent obtained, and all questions answered.
[2017-11-13] MEDS: HYDROMORPHONE HCL INJ/PF 2 MG/ML AMPULE IV ONE ×5 (12:23→20:20)
--- NOTE | 2017-11-13 12:53 | PDOC PROGRESS REPORT ---
Subjective Progress Note for:: 11/13/17 - Seen on rounds this morning Subjective:: Patient states that she continues to have some abdominal pain and the medications are helping but she is worried about going home and having dehydration again. She is concerned that her nutrition is not enough because she cannot tolerate food. States she can eat but then she gets nauseous. This morning she spoke with surgery and the plan is to possibly get a jejunostomy tube for feeding and nutrition. 37-year-old female admitted for dehydration and weight loss for the last 2-3 months. Also having chronic abdominal pain. EGD showed gastritis/duodenitis started on PPIs and Carafate's. She had a CAT scan of her abdomen which also showed pelvic congestion syndrome and MANAGER PERSONNEL SELECTION was consulted but needs outpatient workup. She also underwent gastric emptying study which was positive. She continues to have abdominal pain with nausea/vomiting and unable to tolerate food and liquid as well. Initially she wanted a port placed in her chest so she can get easy hydration-as per patient she has been to the ER multiple times for dehydration and they had to put central lines each time. There is a questionable history of illicit drug abuse and hence surgery had declined on the port. Today surgeries are recommended a jejunostomy tube for nutrition. You can also do continuous fluid IV hydration through his jejunostomy tube as per surgery but not IV fluid boluses. Patient is in agreement with the plan and hopefully she will get the tube placement today or tomorrow. Reason For Visit: INTRACTABLE NAUSEA AND VOMITING Physical Exam Vital Signs: Temp Pulse Resp BP Pulse Ox 98.5 F 72 18 101/55 L 100 11/13/17 04:02 11/13/17 07:00 11/13/17 04:02 11/13/17 04:02 11/13/17 04:02 Intake & Output 11/12/17 11/13/17 11/14/17 06:59 06:59 06:59 Intake Total 3038 4846 Balance 3038 4846 Weight 105 lb 13.15 oz 102 lb 15.294 oz General appearance: PRESENT: no acute distress, thin, other - Cachectic appearing Head exam: PRESENT: atraumatic, normocephalic Eye exam: PRESENT: EOMI, PERRLA. ABSENT: scleral icterus Ear exam: PRESENT: normal external ear exam Mouth exam: PRESENT: tongue midline Neck exam: ABSENT: tracheal deviation Respiratory exam: PRESENT: clear to auscultation nella, symmetrical Cardiovascular exam: PRESENT: +S1, +S2 Pulses: PRESENT: +2 pedal pulses bilateral GI/Abdominal exam: PRESENT: normal bowel sounds, soft, tenderness - Diffuse tender to palpation mostly of the epigastric region Extremities exam: ABSENT: joint swelling, pedal edema Neurological exam: PRESENT: alert, awake, oriented to person, oriented to place , oriented to time, oriented to situation, CN II-XII grossly intact Psychiatric exam: PRESENT: anxious, depressed, other - Somewhat manipulative. ABSENT: homicidal ideation, suicidal ideation Skin exam: PRESENT: dry, warm Results Laboratory Results: 11/11/17 05:00 11/11/17 05:00 11/04/17 05:10 Creatine Kinase 53 Impressions: Chest X-Ray 11/05/17 00:00 IMPRESSION: CENTRAL VENOUS ACCESS CATHETER IN APPROPRIATE LOCATION. NO PNEUMOTHORAX. NEW CENTRAL LINE. Abdomen X-Ray 11/08/17 22:36 IMPRESSION: No acute findings. Gastric Emptying Nuclear Medicine 11/09/17 00:00 IMPRESSION: Delayed gastric emptying Assessment & Plan - Diagnosis (1) Chronic generalized abdominal pain Is this a current diagnosis for this admission?: Yes Plan: Her abdominal pain is multifactorial-EGD done during this visit shows esophagitism, gastritis and duodenitis and she was started on Carafate and PPIs. She also has pelvic congestion syndrome and MANAGER PERSONNEL SELECTION was consulted and recommended medications for that. She is also been recommended outpatient follow-up for further workup and treatment. Her third problem causing her abdominal pain is gastroparesis and she had a gastric emptying study done showing delayed gastric emptying. As per note from GI yesterday she is no longer a candidate for Botox because she is on chronic narcotic use at this time. I had a long conversation with her today regarding her gastroparesis and lifestyle and diet modifications along with follow-up with GI that is proficient in gastroparesis as an outpatient. I am not clear what caused her gastroparesis. She is currently on Reglan and Marinol for her nausea/vomiting and yesterday. She tells me that she is allergic to Zofran and promethazine. She tells me that Compazine does not work for either. I am unable to verify any of her allergies. She is also allergic to morphine and hence currently getting Dilaudid and I have spoken to her about the use of narcotics given her gastroparesis. I have counseled and educated her on the adverse/side effects of using narcotics and GI symptoms. She understands the risks of her decision but wants to continue on Dilaudid. Patient is very manipulative at times and is always complaining of pain and wanting Dilaudid. She keeps an eye on the clock and when her pain medications are due and asked for them exactly on time. She seems to be getting addicted and/or dependent on narcotics for her pain. Unfortunately the narcotics are also worsening her gastroparesis. (2) Dehydration Is this a current diagnosis for this admission?: Yes Plan: She tells me that she is unable to tolerate liquid and gets nauseous and has to throw up. He tells me it is due to her gastroparesis likely. This is causing her dehydration and coming to the ER frequently she tells me. Prior to me assuming care on 11/12 of this patient, she told me that surgery was consulted to place port by the hospitalist to give access to give quick IV fluid hydration and poor peripheral access. Surgery came to see her and declined due to concern for IV drug use. There was concern about IV drug use and IV access being placed such as a port. Her urine was positive for amphetamines and benzos -but she is on Adderall and Klonopin at home so it is difficult to assess whether she is abusing illicit drugs at home or not. She tells me that she does not smoke except for marijuana, does not drink and does not abuse illicit drugs. Today surgery evaluate her again and disagreed with port placement-I am in agreement with surgery that she should not be sent home on a port. Surgery fortunately has been helpful with placing a jejunostomy tube for nutrition. See plan above (3) Esophagitis Is this a current diagnosis for this admission?: Yes Plan: Continue with PPI and Carafate and follow up with GI outpatient (4) Gastroparesis Is this a current diagnosis for this admission?: Yes Plan: See plan above for general abdominal pain (5) Nausea and vomiting Qualifiers: Vomiting type: unspecified Vomiting Intractability: non-intractable Qualified Code(s): R11.2 - Nausea with vomiting, unspecified Is this a current diagnosis for this admission?: Yes (6) Pelvic congestion syndrome Is this a current diagnosis for this admission?: Yes Plan: Evaluated by MANAGER PERSONNEL SELECTION-I appreciate their assistance in this matter. She will need outpatient follow-up and treatment - Time Time Spent with patient: 25-34 minutes - Plan Summary Plan Summary: I spoke with surgeon today about patient-I appreciate his assistance greatly- plan is to place jejunostomy tube and discharge patient when ready. Patient is to follow-up with GI specialist proficient and gastroparesis.
[2017-11-13] MEDS ORDERED: BUPIVACAINE HCL 0.5 % INJ/PF 30 ML SDV ONE (14:09)
[2017-11-13] MEDS ORDERED: LIDOCAINE 1% INJ-PF (10 MG/ML) 30 ML SDV ONE (14:09)
[2017-11-13] MEDS ORDERED: MIDAZOLAM 2 MG/2 ML INJ ONE (15:21)
[2017-11-13] MEDS ORDERED: FENTANYL CITRATE INJ/PF 100 MCG/2 ML AMPUL ONE ×2 (15:21→17:29)
[2017-11-13] MEDS ORDERED: DEXAMETHASONE SOD PHOSPHATE INJ 4 MG/1 ML VIAL ONE (15:22)
[2017-11-13] MEDS ORDERED: PROPOFOL INJ 200 MG/20 ML VIAL IV ONE (15:22)
[2017-11-13] MEDS ORDERED: ONDANSETRON HCL INJ/PF 4 MG/2 ML SDV ONE (15:22)
[2017-11-13] MEDS ORDERED: CEFAZOLIN INJ 1 GM VIAL ONE (16:17)
[2017-11-13] MEDS ORDERED: METRONIDAZOLE 500 MG/NS RTU 500 MG/100 ML RTUPB IV ONE (16:20)
[2017-11-13] MEDS ORDERED: DIPHENHYDRAMINE HCL 50 MG/ML VIAL IV PRN (16:24)
[2017-11-13] MEDS ORDERED: PROMETHAZINE HCL INJ 25 MG/1 ML VIAL IV PRN (16:24)
[2017-11-13] MEDS ORDERED: FENTANYL CITRATE INJ/PF 100 MCG/2 ML AMPUL IV PRN ×2 (16:24)
[2017-11-13] MEDS ORDERED: OXYCODONE-ACETAMINOPHEN 5-325 MG TABLET PO PRN ×2 (16:24)
[2017-11-13] MEDS: FENTANYL CITRATE INJ/PF 100 MCG/2 ML AMPUL IV PRN ×2 (17:30→17:45)
[2017-11-13] MEDS ORDERED: HYDROMORPHONE HCL INJ/PF 2 MG/ML AMPULE ONE (17:53)
--- NOTE | 2017-11-13 20:09 | Operative Report ---
Nonrecallable Operative Report DATE OF SURGERY: 11/13/17 PREOPERATIVE DIAGNOSIS: 1. Gastroparesis. 2. Chronic pancreatitis. 3. Unintentional weight loss. POSTOPERATIVE DIAGNOSIS: Same as above OPERATION: Feeding jejunostomy placement SURGEON: MYCHAL FERRIS ANESTHESIA: GA TISSUE REMOVED OR ALTERED: None COMPLICATIONS: None apparent ESTIMATED BLOOD LOSS: Minimal PROCEDURE: Drains/implants: 20 [place] feeding jejunostomy. Procedure in detail: After informed consent was obtained, the patient was brought to the operating room and laid in the supine position. The area of the abdomen was prepped and draped in a normal sterile fashion. A vertical midline incision was created superior to the umbilicus. Dissection was carried through the subcutaneous tissue using sharp and blunt dissection. The linea alba fascia was incised sharply, the abdomen was entered sharply. The abdomen was opened and the small intestines were identified. A suitable place in the jejunum was chosen for feeding tube placement. A 20 [place] feeding tube was brought onto the table. A pursestring was created with 2-0 silk suture. A longitudinal incision was created in the small bowel proximal to the pursestring. This was used to introduce the feeding tube bumper, while the tube was pulled through the pursestring suture. Pursestring was tightened, and the bumper was left inside the lumen of the small bowel. The longitudinal incision was then closed transversely using a TA stapling device. The tube was then brought out through the anterior abdominal wall. The small bowel was tacked to the anterior abdominal wall in multiple places using 2-0 silk suture. The midline fascia was then closed using #1 PDS suture in simple running fashion. The overlying skin was closed using skin nereyda. A dressing was placed, and the procedure was concluded. All sponge, instrument, and needle counts were correct 2. Condition: Stable.
[2017-11-13] MEDS: METOCLOPRAMIDE HCL INJ/PF 10 MG/2 ML SDV IV PRN (21:50)
[2017-11-13] MEDS: LORAZEPAM INJ 2 MG/1 ML VIAL IV PRN (21:50)
[2017-11-13] MEDS: CLONAZEPAM 1 MG TABLET PO SCH (23:37)
[2017-11-14] MEDS: HYDROMORPHONE HCL INJ/PF 2 MG/ML AMPULE IV PRN ×6 (00:46→23:00)
[2017-11-14] MEDS: OXYCODONE-ACETAMINOPHEN 5-325 MG TABLET PO PRN ×6 (02:11→23:01)
[2017-11-14] MEDS: LORAZEPAM INJ 2 MG/1 ML VIAL IV PRN ×5 (02:12→23:00)
[2017-11-14] MEDS: POTASSI CL 40 MEQ/NS 1L 1,000 ML IV PRN ×2 (02:26→15:59)
[2017-11-14] MEDS: LANSOPRAZOLE 30 MG TAB.RAP.DR PO SCH ×2 (05:07→18:44)
[2017-11-14] MEDS: METOCLOPRAMIDE HCL INJ/PF 10 MG/2 ML SDV IV PRN ×2 (06:21→14:45)
[2017-11-14] MEDS: SUCRALFATE SUSP 1 GM/10 ML UDCUP PO SCH ×4 (08:12→23:01)
[2017-11-14] MEDS: DRONABINOL 2.5 MG CAPSULE PO SCH ×2 (09:38→18:43)
[2017-11-14] MEDS: DOCUSATE SODIUM 100 MG CAPSULE PO SCH ×2 (09:38→18:44)
[2017-11-14] MEDS ORDERED: LORAZEPAM INJ 2 MG/1 ML VIAL IV ONE (10:30)
--- NOTE | 2017-11-14 11:29 | PDOC PROGRESS REPORT ---
Subjective Progress Note for:: 11/14/17 Subjective:: Post j-tube placement POD #1. Denies significant pains. No N/V Tolerating some po clears Reason For Visit: INTRACTABLE NAUSEA AND VOMITING Physical Exam Vital Signs: Temp Pulse Resp BP Pulse Ox 98.3 F 100 18 90/55 L 100 11/14/17 07:41 11/14/17 07:41 11/14/17 07:41 11/14/17 07:41 11/14/17 07:41 Intake & Output 11/13/17 11/14/17 11/15/17 06:59 06:59 06:59 Intake Total 4846 2550 Output Total 10 Balance 4846 2540 Weight 46.7 kg 46.6 kg Exam: Abdominal incision dressing is dry. J tube in place. Results Laboratory Results: 11/11/17 05:00 11/11/17 05:00 11/04/17 05:10 Creatine Kinase 53 Impressions: Chest X-Ray 11/05/17 00:00 IMPRESSION: CENTRAL VENOUS ACCESS CATHETER IN APPROPRIATE LOCATION. NO PNEUMOTHORAX. NEW CENTRAL LINE. Abdomen X-Ray 11/08/17 22:36 IMPRESSION: No acute findings. Gastric Emptying Nuclear Medicine 11/09/17 00:00 IMPRESSION: Delayed gastric emptying Assessment & Plan - Diagnosis (1) Gastroparesis Is this a current diagnosis for this admission?: Yes - Time Time Spent with patient: 15-24 minutes - Plan Summary Plan Summary: Awaiting dietary consult to start Tube feeds.
--- NOTE | 2017-11-14 18:49 | PDOC PROGRESS REPORT ---
Subjective Progress Note for:: 11/14/17 Subjective:: Marychuy states she has been doing pretty well except she was feeling like she might have a seizure earlier. She asked for a additional dose of Ativan which was given and that seems to have calm down her sensation that she was going to have a seizure. She also complains that the Protonix she takes at home works considerably better than the proton pump inhibitor available here at the hospital. She is anxious about getting home soon and this is being a problem for her in that she tends to develop more symptoms when she is anxious. She has been working with the discharge planning and home health agencies to arrange for her departure to do her home very soon. She has been doing well postoperatively, with the initiation of feedings per her new feeding tube beginning today. Reason For Visit: INTRACTABLE NAUSEA AND VOMITING Physical Exam Vital Signs: Temp Pulse Resp BP Pulse Ox 98.4 F 93 18 94/59 L 100 11/14/17 12:41 11/14/17 12:41 11/14/17 12:41 11/14/17 12:41 11/14/17 12:41 Intake & Output 11/13/17 11/14/17 11/15/17 06:59 06:59 06:59 Intake Total 4846 2550 1000 Output Total 10 Balance 4846 2540 1000 Weight 46.7 kg 46.6 kg General appearance: PRESENT: no acute distress, cooperative Head exam: PRESENT: atraumatic, normocephalic Eye exam: PRESENT: conjunctiva pink. ABSENT: nystagmus, scleral icterus Ear exam: PRESENT: normal external ear exam. ABSENT: bleeding, drainage Mouth exam: PRESENT: moist, neck supple, tongue midline Neck exam: PRESENT: full ROM. ABSENT: JVD, tenderness, thyromegaly, tracheal deviation Respiratory exam: PRESENT: clear to auscultation nella, symmetrical, unlabored Cardiovascular exam: PRESENT: RRR. ABSENT: clicks, diastolic murmur, gallop, rubs, systolic murmur Pulses: PRESENT: normal carotid pulses, normal radial pulses Vascular exam: PRESENT: normal capillary refill. ABSENT: pallor GI/Abdominal exam: PRESENT: normal bowel sounds, soft, tenderness, other - PEG type Feeding tube in place.. ABSENT: distended Extremities exam: PRESENT: full ROM. ABSENT: clubbing, joint swelling, pedal edema Musculoskeletal exam: PRESENT: full ROM, normal inspection. ABSENT: deformity, dislocation Neurological exam: PRESENT: alert, oriented to person, oriented to place, oriented to time, oriented to situation, CN II-XII grossly intact. ABSENT: motor sensory deficit Psychiatric exam: PRESENT: anxious, normal mood Skin exam: ABSENT: jaundice, rash, urticaria Results Laboratory Results: 11/11/17 05:00 11/11/17 05:00 11/04/17 05:10 Creatine Kinase 53 Impressions: Chest X-Ray 11/05/17 00:00 IMPRESSION: CENTRAL VENOUS ACCESS CATHETER IN APPROPRIATE LOCATION. NO PNEUMOTHORAX. NEW CENTRAL LINE. Abdomen X-Ray 11/08/17 22:36 IMPRESSION: No acute findings. Gastric Emptying Nuclear Medicine 11/09/17 00:00 IMPRESSION: Delayed gastric emptying Assessment & Plan - Diagnosis (1) Chronic generalized abdominal pain Is this a current diagnosis for this admission?: Yes Plan: Marychuy admits that this is been under reasonably good control for the last several days with only minimal medication per her current medical regimen. (2) Chronic pancreatitis Qualifiers: Pancreatitis type: idiopathic Qualified Code(s): K86.1 - Other chronic pancreatitis Is this a current diagnosis for this admission?: Yes Plan: Marychuy understands that her chronic pancreatitis is probably contributing factor to her gastroparesis. She is currently being treated symptomatically for any recurrences of her chronic pancreatitis. At the present time this problem seems to be reasonably well-controlled without specific therapy. (3) Gastroparesis Is this a current diagnosis for this admission?: Yes Plan: Marychuy feels like she is doing well with this particular problem not having had any vomiting and having only minimal abdominal complaints of pain or other discomfort. She has not been having any significant dyspepsia but she does not feel that she can manage to be treated without utilizing a feeding tube as she feels that her gag and vomiting reflexes will recur and cause her to have chronic vomiting again if she is trying to take oral intake. Due to this problem she will be treated with her PEG tube feedings and symptomatic control for her gastroparesis symptoms although it would be a very good idea to continue her on Reglan at the time of discharge to help with improved motility of the GI tract. (4) Pelvic congestion syndrome Is this a current diagnosis for this admission?: Yes Plan: Marychuy understands that her pelvic congestion syndrome will be addressed at a later date when she has regained her strength and is physically more able to tolerate a surgical procedure such as hysterectomy which is being planned for her future. - Time Time Spent with patient: 35 or more minutes Medications reviewed and adjusted accordingly: Yes
[2017-11-14] MEDS: CLONAZEPAM 1 MG TABLET PO SCH (23:02)
[2017-11-14] MEDS: TEMAZEPAM 7.5 MG CAPSULE PO PRN (23:14)
[2017-11-15] MEDS: HYDROMORPHONE HCL INJ/PF 2 MG/ML AMPULE IV PRN (03:48)
[2017-11-15] MEDS: OXYCODONE-ACETAMINOPHEN 5-325 MG TABLET PO PRN (03:48)
[2017-11-15] MEDS: LORAZEPAM INJ 2 MG/1 ML VIAL IV PRN ×4 (03:49→23:23)
[2017-11-15] MEDS: SUCRALFATE SUSP 1 GM/10 ML UDCUP PO SCH ×4 (10:24→23:24)
[2017-11-15] MEDS: LANSOPRAZOLE 30 MG TAB.RAP.DR PO SCH ×2 (10:24→19:01)
[2017-11-15] MEDS: DRONABINOL 2.5 MG CAPSULE PO SCH ×2 (10:29→19:01)
[2017-11-15] MEDS: DOCUSATE SODIUM 100 MG CAPSULE PO SCH ×2 (10:29→19:01)
[2017-11-15] MEDS ORDERED: OXYCODONE-ACETAMINOPHEN 5-325 MG TABLET PO PRN (10:58)
[2017-11-15] MEDS: HYDROMORPHONE HCL 2 MG TABLET PO PRN ×3 (14:23→23:25)
[2017-11-15] MEDS: METOCLOPRAMIDE HCL INJ/PF 10 MG/2 ML SDV IV PRN (16:11)
--- NOTE | 2017-11-15 17:55 | PDOC PROGRESS REPORT ---
Subjective Progress Note for:: 11/15/17 Subjective:: 37-year-old female admitted for dehydration and weight loss for the last 2-3 months as well as chronic abdominal pain. EGD showed gastritis/duodenitis started on PPIs and Carafate. She had a CAT scan of her abdomen which also showed pelvic congestion syndrome and [employer] was consulted but needs outpatient workup. She also underwent gastric emptying study which was positive. She continues to have abdominal pain with nausea/vomiting and unable to tolerate food and liquid as well. Initially she wanted a port placed in her chest so she can get easy hydration-as per patient she has been to the ER multiple times for dehydration and they had to put central lines each time. There is a questionable history of illicit drug abuse and hence surgery had declined on the port. A jejunostomy tube was placed for nutrition on 11/14/17. 11/14/17: Marychuy states she has been doing pretty well except she was feeling like she might have a seizure earlier. She asked for a additional dose of Ativan which was given and that seems to have calm down her sensation that she was going to have a seizure. She also complains that the Protonix she takes at home works considerably better than the proton pump inhibitor available here at the hospital. She is anxious about getting home soon and this is being a problem for her in that she tends to develop more symptoms when she is anxious. She has been working with the discharge planning and home health agencies to arrange for her departure to do her home very soon. She has been doing well postoperatively, with the initiation of feedings per her new feeding tube beginning today. 11/21/17: Marychuy complains today of having a lot of pain. She is not getting pain relief with her current regiment. I have offered (and ordered) a pain management consultation for her. She continues to worry about the arrangements for feeding at home and the details of her treatment. She remains nauseated most of the time but has taken some small amounts of oral fluids. Reason For Visit: INTRACTABLE NAUSEA AND VOMITING Physical Exam Vital Signs: Temp Pulse Resp BP Pulse Ox 99.0 F 80 16 94/63 L 99 11/15/17 15:04 11/15/17 15:04 11/15/17 15:04 11/15/17 15:04 11/15/17 15:04 Intake & Output 11/14/17 11/15/1711/16/18 06:59 06:59 06:59 Intake Total 2550 1478 683 Output Total 10 Balance 2540 1478 683 Weight 46.6 kg 46.1 kg General appearance: PRESENT: no acute distress, cooperative Head exam: PRESENT: atraumatic, normocephalic Eye exam: PRESENT: conjunctiva pink. ABSENT: nystagmus, scleral icterus Ear exam: PRESENT: normal external ear exam. ABSENT: bleeding, drainage Mouth exam: PRESENT: neck supple, tongue midline Neck exam: ABSENT: JVD, thyromegaly, tracheal deviation Respiratory exam: PRESENT: clear to auscultation nella, symmetrical, unlabored Cardiovascular exam: PRESENT: RRR. ABSENT: clicks, gallop, rubs Pulses: PRESENT: normal radial pulses, normal dorsalis pedis pul GI/Abdominal exam: PRESENT: normal bowel sounds, other - wearing an abdominal binder Rectal exam: PRESENT: deferred Extremities exam: ABSENT: joint swelling, pedal edema Musculoskeletal exam: PRESENT: full ROM, normal inspection Neurological exam: PRESENT: alert, awake, oriented to person, oriented to place , oriented to time, oriented to situation, CN II-XII grossly intact. ABSENT: motor sensory deficit Psychiatric exam: PRESENT: other - hostile affect, angry mood Skin exam: ABSENT: jaundice, rash, urticaria Results Laboratory Results: 11/11/17 05:00 11/11/17 05:00 11/04/17 05:10 Creatine Kinase 53 Impressions: Chest X-Ray 11/05/17 00:00 IMPRESSION: CENTRAL VENOUS ACCESS CATHETER IN APPROPRIATE LOCATION. NO PNEUMOTHORAX. NEW CENTRAL LINE. Abdomen X-Ray 11/08/17 22:36 IMPRESSION: No acute findings. Gastric Emptying Nuclear Medicine 11/09/17 00:00 IMPRESSION: Delayed gastric emptying Assessment & Plan - Diagnosis (1) Chronic generalized abdominal pain Is this a current diagnosis for this admission?: Yes Plan: Pain management consult today (2) Chronic pancreatitis Qualifiers: Pancreatitis type: idiopathic Qualified Code(s): K86.1 - Other chronic pancreatitis Is this a current diagnosis for this admission?: Yes Plan: Marychuy understands that her chronic pancreatitis is probably contributing factor to her gastroparesis. She is currently being treated symptomatically for any recurrences of her chronic pancreatitis. At the present time this problem seems to be reasonably well-controlled without specific therapy. (3) Gastroparesis Is this a current diagnosis for this admission?: Yes Plan: Marychuy feels like she is doing well with this particular problem not having had any vomiting and having only minimal abdominal complaints of pain or other discomfort. She has not been having any significant dyspepsia but she does not feel that she can manage to be treated without utilizing a feeding tube as she feels that her gag and vomiting reflexes will recur and cause her to have chronic vomiting again if she is trying to take oral intake. Due to this problem she will be treated with her PEG tube feedings and symptomatic control for her gastroparesis symptoms although it would be a very good idea to continue her on Reglan at the time of discharge to help with improved motility of the GI tract. (4) Pelvic congestion syndrome Is this a current diagnosis for this admission?: Yes Plan: Marychuy understands that her pelvic congestion syndrome will be addressed at a later date when she has regained her strength and is physically more able to tolerate a surgical procedure such as hysterectomy which is being planned for her future. - Time Time Spent with patient: 25-34 minutes Medications reviewed and adjusted accordingly: Yes Anticipated discharge: Home, Home with Homehealth Within: within 72 hours
[2017-11-15] MEDS: POTASSI CL 40 MEQ/NS 1L 1,000 ML IV PRN (19:00)
[2017-11-15] MEDS: ACETAMINOPHEN 325 MG TABLET PO SCH ×2 (19:02→23:25)
[2017-11-15 20:08] LABS: ALANINE AMINOTRANSFERASE 31 U/L (9-52); ALBUMIN 3.4 g/dL (3.5-5.0); ALKALINE PHOSPHATASE 46 U/L (38-126); ANION GAP 8 (5-19); ASPARTATE AMINO TRANSFERASE 24 U/L (14-36); BILIRUBIN,DIRECT 0.2 mg/dL (0.0-0.4); BILIRUBIN,TOTAL 0.3 mg/dL (0.2-1.3); BLOOD UREA NITROGEN 5 mg/dL (7-20); CALCIUM 8.8 mg/dL (8.4-10.2); CARBON DIOXIDE 24 mmol/L (22-30); CHLORIDE 108 mmol/L (98-107); GLUCOSE 96 mg/dL (75-110); POTASSIUM 4.4 mmol/L (3.6-5.0); SODIUM 139.6 mmol/L (137-145); TOTAL PROTEIN 6.1 g/dL (6.3-8.2)
[2017-11-15] MEDS: TEMAZEPAM 7.5 MG CAPSULE PO PRN (23:25)
[2017-11-15] MEDS: CLONAZEPAM 1 MG TABLET PO SCH (23:25)
[2017-11-16] MEDS: METOCLOPRAMIDE HCL INJ/PF 10 MG/2 ML SDV IV PRN ×2 (00:22→09:01)
[2017-11-16] MEDS: LORAZEPAM INJ 2 MG/1 ML VIAL IV PRN ×2 (05:10→22:40)
[2017-11-16] MEDS: LANSOPRAZOLE 30 MG TAB.RAP.DR PO SCH ×2 (05:11→16:48)
[2017-11-16] MEDS: ACETAMINOPHEN 325 MG TABLET PO SCH ×3 (05:12→18:27)
[2017-11-16] MEDS: HYDROMORPHONE HCL 2 MG TABLET PO PRN ×5 (05:12→23:40)
[2017-11-16] MEDS: SUCRALFATE SUSP 1 GM/10 ML UDCUP PO SCH ×4 (09:01→22:40)
[2017-11-16] MEDS: POTASSI CL 40 MEQ/NS 1L 1,000 ML IV PRN ×2 (09:03→22:40)
[2017-11-16] MEDS: DOCUSATE SODIUM 100 MG CAPSULE PO SCH ×2 (09:36→18:27)
[2017-11-16] MEDS: DRONABINOL 2.5 MG CAPSULE PO SCH ×2 (09:36→18:27)
[2017-11-16 14:41] LABS: ABSOLUTE EOSINOPHILS # (AUTO) 0.3 10^3/uL (0.0-0.6); ABSOLUTE LYMPHOCYTES (AUTO) 1.7 10^3/uL (0.5-4.7); ABSOLUTE MONOCYTES (AUTO) 0.5 10^3/uL (0.1-1.4); ABSOLUTE NEUT (AUTO) 2.3 10^3/uL (1.7-8.2); BASOPHILS % (AUTO) 0.5 % (0-2); EOSINOPHILS % (AUTO) 6.5 % (0-6); HEMATOCRIT 32.5 % (36.0-47.0); HEMOGLOBIN 11.1 g/dL (12.0-15.5); LYMPHOCYTES % (AUTO) 34.3 % (13-45); MEAN CORPUSCULAR HEMOGLOBIN 33.1 pg (27.0-33.4); MEAN CORPUSCULAR HGB CONC 34.2 g/dL (32.0-36.0); MEAN CORPUSCULAR VOLUME 97 fl (80-97); MONOCYTES % (AUTO) 10.5 % (3-13); PLATELET COUNT 303 10^3/uL (150-450); RED BLOOD COUNT 3.36 10^6/uL (3.72-5.28); RED CELL DISTRIBUTION WIDTH 12.7 % (11.5-14.0); SEGMENTED NEUTROPHILS % (AUTO) 48.2 % (42-78); TOTAL CELLS COUNTED % (AUTO) 100 %; WHITE BLOOD COUNT 4.8 10^3/uL (4.0-10.5)
--- NOTE | 2017-11-16 21:25 | CONSULTATION REPORT E ---
Consultation Report NAME: TRAVIS HORVATH : 1980 AGE: 37Y DATE: 11/15/2017 536 A TO: ELICIA QUINTERO M.D. FROM: GENNA SOUZA M.D. Requesting Physician REASON FOR CONSULTATION: Acute on chronic pain after J-tube placement. HISTORY OF PRESENT ILLNESS: Patient is a 37-year-old female admitted back on November 03 for intractable nausea and vomiting. Found to have malnutrition. Seen previously for pelvic congestion syndrome, chronic abdominal pain and had a prior outpatient workup for longstanding history of chronic abdominal pain. Patient ended up having J-tube placement back on 11/13 for nutritional status and Pain Management was consulted on the for handling of her chronic pain. She had been admitted to the hospitalist service since November 03 for the intractable nausea and vomiting. Has had multiple procedures, including EGD. She was evaluated, but port placement was declined and currently has a central line. Patient has a noted longstanding history of gastroparesis and multiple GI workups. Patient notes today prior history of THC use and prior use of opioids, but states that she does not prefer to be on chronic opioids and usually uses CBD oil at home for her chronic nausea. She notes a history of seizures, for which she has been on chronic benzodiazepines. Patient also notes a sharp shooting pain near her new J-tube placement site. She states that her IV hydromorphone has no effect and only lasts for a very short period of time. She notes minimal efficacy with her oral oxycodone. She notes that her biggest concern is seizures related to her trigger, which she defines as increased pain, and discusses that she is interested in being able to go home, and understands that she needs to be able to move toward oral medication. She states that she understands that the opioids may exacerbate her chronic abdominal pain and would like to be able to quickly taper off these medications as well. She denies any numbness, tingling. She notes tenderness around the site, especially with any movement, and notes she still has difficulty with eating. PAST MEDICAL HISTORY: She has a noted history of pseudoseizures, hypertension, GERD, arthritis, ADHD, prior TBI. Of note, ADHD as well. SOCIAL HISTORY: Spouse current smoker. Occasional alcohol use. Notes THC prior use, also found in her UDS. FAMILY HISTORY: Noncontributory. MEDICATION HISTORY: Prior history of Adderall 30 mg b.i.d., Klonopin. ALLERGIES: She notes multiple allergies listed in the EMR. REVIEW OF SYSTEMS: Otherwise unchanged from her last progress note. PHYSICAL EXAMINATION: VITAL SIGNS: Stable. GENERAL: Sitting up in bed, in no acute distress. HEENT: Head normocephalic, atraumatic. EXTREMITIES: Moving all extremities x4. Warm and well-perfused. ABDOMEN: Soft, tender. J-tube in place. Dressing in place. NEUROLOGIC: Alert and oriented x3. Cranial nerves II through XII intact. RESPIRATORY: Clear to auscultation bilaterally. CARDIAC: Regular rate and rhythm. PSYCH: Anxious, often tearful during discussion. Affect congruent. RESULTS: See EMR, with multiple studies during this admission. ASSESSMENT: 1. Patient with prior substance abuse history and current THC use. 2. History of pseudoseizures and anxiety. 3. History of gastroparesis, now status post J-tube placement for failure to thrive and malnutrition. PLAN: 1. Agree, after discussion with Dr. Rivera to minimize opioids if possible and move to oral medications, with plans to taper over the next 3 to 5 days. Will transition to oral hydromorphone 4 mg p.o. q.4 and plan to taper by 4 mg every day until off. 2. Patient discussed her current use of benzodiazepines. Discussed with Dr. Rivera and agree with consideration for psychiatric consult moving toward oral longstanding Klonopin in the short-term and moving away from IV Ativan. 3. Agree with continued push towards nutritional status and followup with GI. 4. Will schedule Tylenol to improve and move away from opioid therapy. Patient is not a candidate for chronic opioid management. 5. Will avoid NSAIDs, given her multiple other issues that she has had related to her GI. 6. I would be happy to follow along in the background and see how she does. DICTATING PHYSICIAN: ELICIA QUINTERO M.D. [id number] PHY#: [id number] ID: [id number] JOB#: [id number] ACCT: [id number] cc:ELICIA QUINTERO M.D. >
[2017-11-16] MEDS: CLONAZEPAM 1 MG TABLET PO SCH (22:41)
[2017-11-16] MEDS: TEMAZEPAM 7.5 MG CAPSULE PO PRN (23:40)
--- NOTE | 2017-11-17 00:15 | PDOC PROGRESS REPORT ---
Subjective Progress Note for:: 11/16/17 Subjective:: 37-year-old female admitted for dehydration and weight loss for the last 2-3 months as well as chronic abdominal pain. EGD showed gastritis/duodenitis started on PPIs and Carafate. She had a CAT scan of her abdomen which also showed pelvic congestion syndrome and [employer] was consulted but needs outpatient workup. She also underwent gastric emptying study which was positive. She continues to have abdominal pain with nausea/vomiting and unable to tolerate food and liquid as well. Initially she wanted a port placed in her chest so she can get easy hydration-as per patient she has been to the ER multiple times for dehydration and they had to put central lines each time. There is a questionable history of illicit drug abuse and hence surgery had declined on the port. A jejunostomy tube was placed for nutrition on 11/14/17. 11/14/17: Marychuy states she has been doing pretty well except she was feeling like she might have a seizure earlier. She asked for a additional dose of Ativan which was given and that seems to have calm down her sensation that she was going to have a seizure. She also complains that the Protonix she takes at home works considerably better than the proton pump inhibitor available here at the hospital. She is anxious about getting home soon and this is being a problem for her in that she tends to develop more symptoms when she is anxious. She has been working with the discharge planning and home health agencies to arrange for her departure to do her home very soon. She has been doing well postoperatively, with the initiation of feedings per her new feeding tube beginning today. 11/15/17: Marychuy complains today of having a lot of pain. She is not getting pain relief with her current regiment. I have offered (and ordered) a pain management consultation for her. She continues to worry about the arrangements for feeding at home and the details of her treatment. She remains nauseated most of the time but has taken some small amounts of oral fluids. 11/16/17: Marychuy is focused on getting home [place]. Her pain is better controlled on PM regiment. she should reach her feeding rate goal tonight and discharge as soon as tomorrow will be considered Reason For Visit: INTRACTABLE NAUSEA AND VOMITING Physical Exam Vital Signs: Temp Pulse Resp BP Pulse Ox 98.6 F 91 18 107/60 100 11/16/17 19:32 11/16/17 19:32 11/16/17 19:32 11/16/17 19:32 11/16/17 19:32 Intake & Output 11/15/17 11/16/17 11/17/17 06:59 06:59 06:59 Intake Total 2478 1842 2503 Balance 2478 1842 2503 Weight 46.1 kg 46.1 kg General appearance: PRESENT: no acute distress, cooperative Head exam: PRESENT: atraumatic, normocephalic Eye exam: PRESENT: conjunctiva pink. ABSENT: scleral icterus Ear exam: PRESENT: normal external ear exam. ABSENT: drainage Mouth exam: PRESENT: neck supple, tongue midline Neck exam: ABSENT: thyromegaly, tracheal deviation Respiratory exam: PRESENT: clear to auscultation nella, symmetrical, unlabored Cardiovascular exam: PRESENT: RRR. ABSENT: clicks, diastolic murmur, gallop, rubs, systolic murmur Pulses: PRESENT: normal radial pulses, normal dorsalis pedis pul Vascular exam: PRESENT: normal capillary refill. ABSENT: pallor GI/Abdominal exam: PRESENT: tenderness - epigastrum, other - wearing an abdominal binder Extremities exam: ABSENT: joint swelling, pedal edema Musculoskeletal exam: PRESENT: full ROM, normal inspection Neurological exam: PRESENT: alert, awake, oriented to person, oriented to place , oriented to time, oriented to situation, CN II-XII grossly intact. ABSENT: motor sensory deficit Psychiatric exam: PRESENT: appropriate affect, normal mood Skin exam: ABSENT: jaundice, rash, urticaria Results Laboratory Results: 11/16/17 13:34 11/15/17 19:00 11/16/17 13:34 WBC 4.8 RBC 3.36 L Hgb 11.1 L Hct 32.5 L MCV 97 MCH 33.1 MCHC 34.2 RDW 12.7 Plt Count 303 Seg Neutrophils % 48.2 Lymphocytes % 34.3 Monocytes % 10.5 Eosinophils % 6.5 H Basophils % 0.5 Absolute Neutrophils 2.3 Absolute Lymphocytes 1.7 Absolute Monocytes 0.5 Absolute Eosinophils 0.3 Absolute Basophils 0.0 11/04/17 05:10 Creatine Kinase 53 Impressions: Chest X-Ray 11/05/17 00:00 IMPRESSION: CENTRAL VENOUS ACCESS CATHETER IN APPROPRIATE LOCATION. NO PNEUMOTHORAX. NEW CENTRAL LINE. Abdomen X-Ray 11/08/17 22:36 IMPRESSION: No acute findings. Gastric Emptying Nuclear Medicine 11/09/17 00:00 IMPRESSION: Delayed gastric emptying Assessment & Plan - Diagnosis (1) Chronic generalized abdominal pain Is this a current diagnosis for this admission?: Yes Plan: Pain management therapy is effective, continue as ordered (2) Chronic pancreatitis Qualifiers: Pancreatitis type: idiopathic Qualified Code(s): K86.1 - Other chronic pancreatitis Is this a current diagnosis for this admission?: Yes Plan: Marychuy understands that her chronic pancreatitis is probably contributing factor to her gastroparesis. She is currently being treated symptomatically for any recurrences of her chronic pancreatitis. At the present time this problem seems to be reasonably well-controlled without specific therapy. (3) Gastroparesis Is this a current diagnosis for this admission?: Yes Plan: Marychuy feels like she is doing well with this particular problem not having had any vomiting and having only minimal abdominal complaints of pain or other discomfort. She has not been having any significant dyspepsia but she does not feel that she can manage to be treated without utilizing a feeding tube as she feels that her gag and vomiting reflexes will recur and cause her to have chronic vomiting again if she is trying to take oral intake. Due to this problem she will be treated with her PEG tube feedings and symptomatic control for her gastroparesis symptoms although it would be a very good idea to continue her on Reglan at the time of discharge to help with improved motility of the GI tract. (4) Pelvic congestion syndrome Is this a current diagnosis for this admission?: Yes Plan: Marychuy understands that her pelvic congestion syndrome will be addressed at a later date when she has regained her strength and is physically more able to tolerate a surgical procedure such as hysterectomy which is being planned for her future. - Time Time Spent with patient: 25-34 minutes Anticipated discharge: Home Within: within 72 hours
[2017-11-17] MEDS: ACETAMINOPHEN 325 MG TABLET PO SCH ×4 (04:53→17:05)
[2017-11-17] MEDS: LORAZEPAM INJ 2 MG/1 ML VIAL IV PRN ×3 (04:58→21:21)
[2017-11-17] MEDS: HYDROMORPHONE HCL 2 MG TABLET PO PRN ×4 (04:58→21:20)
[2017-11-17] MEDS: LANSOPRAZOLE 30 MG TAB.RAP.DR PO SCH ×2 (05:35→16:03)
[2017-11-17] MEDS: SUCRALFATE SUSP 1 GM/10 ML UDCUP PO SCH ×4 (08:41→21:20)
[2017-11-17] MEDS: DRONABINOL 2.5 MG CAPSULE PO SCH ×2 (09:39→17:05)
[2017-11-17] MEDS: METOCLOPRAMIDE HCL INJ/PF 10 MG/2 ML SDV IV PRN (09:39)
[2017-11-17] MEDS: DOCUSATE SODIUM 100 MG CAPSULE PO SCH ×2 (09:39→17:05)
--- NOTE | 2017-11-17 10:19 | PDOC PROGRESS REPORT ---
Subjective Progress Note for:: 11/17/17 Subjective:: 37-year-old female admitted for dehydration and weight loss for the last 2-3 months as well as chronic abdominal pain. EGD showed gastritis/duodenitis started on PPIs and Carafate. She had a CAT scan of her abdomen which also showed pelvic congestion syndrome and COAGULATING OPERATOR was consulted but needs outpatient workup. She also underwent gastric emptying study which was positive. She continues to have abdominal pain with nausea/vomiting and unable to tolerate food and liquid as well. Initially she wanted a port placed in her chest so she can get easy hydration-as per patient she has been to the ER multiple times for dehydration and they had to put central lines each time. There is a questionable history of illicit drug abuse and hence surgery had declined on the port. A jejunostomy tube was placed for nutrition on 11/14/17. 11/14/17: Marychuy states she has been doing pretty well except she was feeling like she might have a seizure earlier. She asked for a additional dose of Ativan which was given and that seems to have calm down her sensation that she was going to have a seizure. She also complains that the Protonix she takes at home works considerably better than the proton pump inhibitor available here at the hospital. She is anxious about getting home soon and this is being a problem for her in that she tends to develop more symptoms when she is anxious. She has been working with the discharge planning and home health agencies to arrange for her departure to do her home very soon. She has been doing well postoperatively, with the initiation of feedings per her new feeding tube beginning today. 11/15/17: Marychuy complains today of having a lot of pain. She is not getting pain relief with her current regiment. I have offered (and ordered) a pain management consultation for her. She continues to worry about the arrangements for feeding at home and the details of her treatment. She remains nauseated most of the time but has taken some small amounts of oral fluids. 11/16/17: Marychuy is focused on getting home [facility]. Her pain is better controlled on PM regiment. she should reach her feeding rate goal tonight and discharge as soon as tomorrow will be considered. 11/17/17: Marychuy complains that she had a somewhat difficult night and did not sleep well after her G-tube feeding rate was increased to 45 mL/h. She claims that she was having cramping and general discomfort in her abdomen but it seems to be getting a little bit better this morning. She is asking if her Reglan can be increased or made more frequently as it seems to help with the spasms. She did not complain of nausea or vomiting and overall her general abdominal pain has been quite well controlled with her current medications. Reason For Visit: INTRACTABLE NAUSEA AND VOMITING Physical Exam Vital Signs: Temp Pulse Resp BP Pulse Ox 98.0 F 104 H 18 111/64 100 11/16/17 23:44 11/16/17 23:44 11/16/17 23:44 11/16/17 23:44 11/16/17 23:44 Intake & Output 11/16/17 11/17/17 11/18/17 06:59 06:59 06:59 Intake Total 1842 2621 Balance 1842 2621 Weight 46.1 kg 50.7 kg General appearance: PRESENT: no acute distress, cooperative Head exam: PRESENT: atraumatic, normocephalic Eye exam: PRESENT: conjunctiva pink. ABSENT: scleral icterus Ear exam: PRESENT: normal external ear exam. ABSENT: drainage Mouth exam: PRESENT: moist - Oral mucosa, neck supple Neck exam: ABSENT: JVD, tracheal deviation Respiratory exam: PRESENT: clear to auscultation nella, symmetrical, unlabored Cardiovascular exam: PRESENT: RRR. ABSENT: clicks, gallop, rubs Vascular exam: PRESENT: normal capillary refill. ABSENT: pallor GI/Abdominal exam: PRESENT: normal bowel sounds, other - Wearing an abdominal binder at the time of my exam Rectal exam: PRESENT: deferred Extremities exam: ABSENT: joint swelling, pedal edema Musculoskeletal exam: PRESENT: full ROM, normal inspection Neurological exam: PRESENT: alert, awake, oriented to person, oriented to place , oriented to time, oriented to situation, CN II-XII grossly intact. ABSENT: motor sensory deficit Psychiatric exam: PRESENT: appropriate affect, normal mood Skin exam: ABSENT: jaundice, rash, urticaria Results Laboratory Results: 11/16/17 13:34 11/15/17 19:00 11/16/17 13:34 WBC 4.8 RBC 3.36 L Hgb 11.1 L Hct 32.5 L MCV 97 MCH 33.1 MCHC 34.2 RDW 12.7 Plt Count 303 Seg Neutrophils % 48.2 Lymphocytes % 34.3 Monocytes % 10.5 Eosinophils % 6.5 H Basophils % 0.5 Absolute Neutrophils 2.3 Absolute Lymphocytes 1.7 Absolute Monocytes 0.5 Absolute Eosinophils 0.3 Absolute Basophils 0.0 11/04/17 05:10 Creatine Kinase 53 Impressions: Chest X-Ray 11/05/17 00:00 IMPRESSION: CENTRAL VENOUS ACCESS CATHETER IN APPROPRIATE LOCATION. NO PNEUMOTHORAX. NEW CENTRAL LINE. Abdomen X-Ray 11/08/17 22:36 IMPRESSION: No acute findings. Gastric Emptying Nuclear Medicine 11/09/17 00:00 IMPRESSION: Delayed gastric emptying Assessment & Plan - Diagnosis (1) Chronic generalized abdominal pain Is this a current diagnosis for this admission?: Yes Plan: Pain management therapy is effective, continue as ordered (2) Chronic pancreatitis Qualifiers: Pancreatitis type: idiopathic Qualified Code(s): K86.1 - Other chronic pancreatitis Is this a current diagnosis for this admission?: Yes Plan: Marychuy understands that her chronic pancreatitis is probably contributing factor to her gastroparesis. She is currently being treated symptomatically for any recurrences of her chronic pancreatitis. At the present time this problem seems to be reasonably well-controlled without specific therapy. (3) Gastroparesis Is this a current diagnosis for this admission?: Yes Plan: Marychuy feels like she is doing well with this particular problem not having had any vomiting and having only minimal abdominal complaints of pain or other discomfort. She has not been having any significant dyspepsia but she does not feel that she can manage to be treated without utilizing a feeding tube as she feels that her gag and vomiting reflexes will recur and cause her to have chronic vomiting again if she is trying to take oral intake. Due to this problem she will be treated with her G-tube feedings and symptomatic control for her gastroparesis symptoms although it would be a very good idea to continue her on Reglan and Protonix at the time of discharge to help with improved motility of the GI tract. (4) Pelvic congestion syndrome Is this a current diagnosis for this admission?: Yes Plan: Marychuy understands that her pelvic congestion syndrome will be addressed at a later date when she has regained her strength and is physically more able to tolerate a surgical procedure such as hysterectomy which is being planned for her future. - Time Time Spent with patient: 25-34 minutes Medications reviewed and adjusted accordingly: Yes Anticipated discharge: Home Within: within 24 hours
[2017-11-17] MEDS: POTASSI CL 40 MEQ/NS 1L 1,000 ML IV PRN (12:33)
[2017-11-17] MEDS: METOCLOPRAMIDE HCL INJ/PF 10 MG/2 ML SDV IV SCH ×2 (16:03→21:28)
[2017-11-17] MEDS: CLONAZEPAM 1 MG TABLET PO SCH (21:20)
[2017-11-18] MEDS: TEMAZEPAM 7.5 MG CAPSULE PO PRN (01:15)
[2017-11-18] MEDS: LORAZEPAM INJ 2 MG/1 ML VIAL IV PRN ×4 (01:15→22:28)
[2017-11-18] MEDS: ACETAMINOPHEN 325 MG TABLET PO SCH ×4 (01:15→17:09)
[2017-11-18] MEDS: POTASSI CL 40 MEQ/NS 1L 1,000 ML IV PRN ×2 (01:48→16:27)
[2017-11-18] MEDS: HYDROMORPHONE HCL 2 MG TABLET PO PRN ×5 (01:57→22:27)
[2017-11-18] MEDS: LANSOPRAZOLE 30 MG TAB.RAP.DR PO SCH ×2 (06:03→16:27)
[2017-11-18] MEDS: METOCLOPRAMIDE HCL INJ/PF 10 MG/2 ML SDV IV SCH ×4 (09:03→22:26)
[2017-11-18] MEDS: DOCUSATE SODIUM 100 MG CAPSULE PO SCH ×2 (09:03→17:09)
[2017-11-18] MEDS: SUCRALFATE SUSP 1 GM/10 ML UDCUP PO SCH ×3 (09:03→16:27)
[2017-11-18] MEDS: DRONABINOL 2.5 MG CAPSULE PO SCH ×2 (09:04→17:27)
[2017-11-18] MEDS ORDERED: TEMAZEPAM 7.5 MG CAPSULE PO PRN (17:23)
--- NOTE | 2017-11-18 20:35 | PDOC PROGRESS REPORT ---
Subjective Progress Note for:: 11/18/17 Subjective:: 37-year-old female admitted for dehydration and weight loss for the last 2-3 months as well as chronic abdominal pain. EGD showed gastritis/duodenitis started on PPIs and Carafate. She had a CAT scan of her abdomen which also showed pelvic congestion syndrome and CLINICAL DOCUMENTATION SPECIALIST was consulted but needs outpatient workup. She also underwent gastric emptying study which was positive. She continues to have abdominal pain with nausea/vomiting and unable to tolerate food and liquid as well. Initially she wanted a port placed in her chest so she can get easy hydration-as per patient she has been to the ER multiple times for dehydration and they had to put central lines each time. There is a questionable history of illicit drug abuse and hence surgery had declined on the port. A jejunostomy tube was placed for nutrition on 11/14/17. 11/14/17: Marychuy states she has been doing pretty well except she was feeling like she might have a seizure earlier. She asked for a additional dose of Ativan which was given and that seems to have calm down her sensation that she was going to have a seizure. She also complains that the Protonix she takes at home works considerably better than the proton pump inhibitor available here at the hospital. She is anxious about getting home soon and this is being a problem for her in that she tends to develop more symptoms when she is anxious. She has been working with the discharge planning and home health agencies to arrange for her departure to do her home very soon. She has been doing well postoperatively, with the initiation of feedings per her new feeding tube beginning today. 11/15/17: Marychuy complains today of having a lot of pain. She is not getting pain relief with her current regiment. I have offered (and ordered) a pain management consultation for her. She continues to worry about the arrangements for feeding at home and the details of her treatment. She remains nauseated most of the time but has taken some small amounts of oral fluids. 11/16/17: Mayrchuy is focused on getting home [facility]. Her pain is better controlled on PM regiment. she should reach her feeding rate goal tonight and discharge as soon as tomorrow will be considered. 11/17/17: Marychuy complains that she had a somewhat difficult night and did not sleep well after her G-tube feeding rate was increased to 45 mL/h. She claims that she was having cramping and general discomfort in her abdomen but it seems to be getting a little bit better this morning. She is asking if her Reglan can be increased or made more frequently as it seems to help with the spasms. She did not complain of nausea or vomiting and overall her general abdominal pain has been quite well controlled with her current medications. Reason For Visit: INTRACTABLE NAUSEA AND VOMITING Physical Exam Vital Signs: Temp Pulse Resp BP Pulse Ox 98.3 F 89 18 94/51 L 100 11/17/17 23:29 11/17/17 23:29 11/17/17 23:29 11/17/17 23:29 11/17/17 23:29 Intake & Output 11/17/17 11/18/17 11/19/17 06:59 06:59 06:59 Intake Total 2621 4152 1507 Balance 2621 4152 1507 Weight 50.7 kg 53.6 kg General appearance: PRESENT: no acute distress, cooperative Head exam: PRESENT: atraumatic, normocephalic Eye exam: PRESENT: conjunctiva pink. ABSENT: conjunctival injection Ear exam: PRESENT: normal external ear exam. ABSENT: drainage Mouth exam: PRESENT: moist, neck supple Neck exam: ABSENT: thyromegaly, tracheal deviation Respiratory exam: PRESENT: clear to auscultation nella, symmetrical, unlabored Cardiovascular exam: PRESENT: RRR. ABSENT: clicks, gallop, rubs Vascular exam: PRESENT: normal capillary refill. ABSENT: pallor GI/Abdominal exam: PRESENT: normal bowel sounds, other - Wearing her abdominal binder at the time of my exam. Gastrostomy tube appears to be in good position.. ABSENT: distended Extremities exam: ABSENT: joint swelling, pedal edema Musculoskeletal exam: PRESENT: full ROM, normal inspection Neurological exam: PRESENT: alert, awake, oriented to person, oriented to place , oriented to time, oriented to situation, CN II-XII grossly intact. ABSENT: motor sensory deficit Psychiatric exam: PRESENT: appropriate affect, normal mood Skin exam: ABSENT: jaundice, rash, urticaria Results Laboratory Results: 11/16/17 13:34 11/15/17 19:00 11/04/17 05:10 Creatine Kinase 53 Impressions: Chest X-Ray 11/05/17 00:00 IMPRESSION: CENTRAL VENOUS ACCESS CATHETER IN APPROPRIATE LOCATION. NO PNEUMOTHORAX. NEW CENTRAL LINE. Abdomen X-Ray 11/08/17 22:36 IMPRESSION: No acute findings. Gastric Emptying Nuclear Medicine 11/09/17 00:00 IMPRESSION: Delayed gastric emptying Assessment & Plan - Diagnosis (1) Chronic generalized abdominal pain Is this a current diagnosis for this admission?: Yes Plan: Pain management therapy is effective, continue as ordered (2) Chronic pancreatitis Qualifiers: Pancreatitis type: idiopathic Qualified Code(s): K86.1 - Other chronic pancreatitis Is this a current diagnosis for this admission?: Yes Plan: Marychuy understands that her chronic pancreatitis is probably contributing factor to her gastroparesis. She is currently being treated symptomatically for any recurrences of her chronic pancreatitis. At the present time this problem seems to be reasonably well-controlled without specific therapy. (3) Gastroparesis Is this a current diagnosis for this admission?: Yes Plan: Marychuy feels like she is doing well with this particular problem not having had any vomiting and having only minimal abdominal complaints of pain or other discomfort. She has not been having any significant dyspepsia but she does not feel that she can manage to be treated without utilizing a feeding tube as she feels that her gag and vomiting reflexes will recur and cause her to have chronic vomiting again if she is trying to take oral intake. Due to this problem she will be treated with her G-tube feedings and symptomatic control for her gastroparesis symptoms although it would be a very good idea to continue her on Reglan and Protonix at the time of discharge to help with improved motility of the GI tract. Is also benefited substantially from the use of Marinol to control her nausea and vomiting. (4) Pelvic congestion syndrome Is this a current diagnosis for this admission?: Yes Plan: Marychuy understands that her pelvic congestion syndrome will be addressed at a later date when she has regained her strength and is physically more able to tolerate a surgical procedure such as hysterectomy which is being planned for her future. - Time Time Spent with patient: 25-34 minutes Medications reviewed and adjusted accordingly: Yes Anticipated discharge: Home with Homehealth Within: within 24 hours
[2017-11-18] MEDS: CLONAZEPAM 1 MG TABLET PO SCH (22:26)
[2017-11-19] MEDS: SUCRALFATE SUSP 1 GM/10 ML UDCUP PO SCH ×3 (02:13→10:32)
[2017-11-19] MEDS: HYDROMORPHONE HCL 2 MG TABLET PO PRN ×3 (03:23→14:04)
[2017-11-19] MEDS: ACETAMINOPHEN 325 MG TABLET PO SCH ×3 (03:23→14:14)
[2017-11-19] MEDS: LORAZEPAM INJ 2 MG/1 ML VIAL IV PRN (03:27)
[2017-11-19] MEDS: LANSOPRAZOLE 30 MG TAB.RAP.DR PO SCH (06:37)
[2017-11-19] MEDS: POTASSI CL 40 MEQ/NS 1L 1,000 ML IV PRN (06:39)
[2017-11-19] MEDS: METOCLOPRAMIDE HCL INJ/PF 10 MG/2 ML SDV IV SCH ×2 (08:47→10:28)
[2017-11-19] MEDS: DRONABINOL 2.5 MG CAPSULE PO SCH (10:28)
[2017-11-19] MEDS: DOCUSATE SODIUM 100 MG CAPSULE PO SCH (10:28)
[2017-11-19 16:24] VITALS: BP 102/74
--- NOTE | 2017-11-19 19:12 | PDOC DISCHARGE SUMMARY ---
General - Admit/Disc Date/PCP Admission Date/Primary Care Provider: 11/03/17 22:24 NORA JOCELYNE, Discharge Date: 11/19/17 - Discharge Diagnosis (1) Chronic generalized abdominal pain Is this a current diagnosis for this admission?: Yes Summary: Marychuy has had chronic generalized abdominal pain for quite some time it has been reasonably well-controlled with Dilaudid throughout her hospital course. She is planning to try to taper off of the Dilaudid over the next few weeks with the assistance of pain management. (2) Chronic pancreatitis Is this a current diagnosis for this admission?: Yes Summary: Marychuy has been plagued with problems related to her chronic pancreatitis including abdominal pain and nausea. She has been treated throughout her hospital course with Dilaudid and antiemetics the most effective of which has been Reglan. She continues to use both of these on a regular basis along with Carafate to help with GI upset and esophageal reflux problems. (3) Gastroparesis Is this a current diagnosis for this admission?: Yes Summary: Marychuy's gastroparesis is the primary cause of her intractable nausea and vomiting on presentation. She did not respond exceptionally well to therapy and elected to have a gastric feeding tube placed by surgery for maintenance of her nutritional status and fluid status. She has been doing quite well since she received the surgical procedure and has been looking better as she has been sustained by nutrition on adequate basis. She plans to try to get her nutritional status improved to the point where she feels very well and at some point in the future she may tolerate oral intake again for more than just a few bites or a few sips of each meal. (4) Pelvic congestion syndrome Is this a current diagnosis for this admission?: Yes Summary: Marychuy has chronic pelvic discomfort and pain and this is due to chronic pelvic congestion syndrome which was diagnosed during his hospital course. She understands that she needs to recover from her current problem and becomes strong prior to having any surgery to address the pelvic congestion syndrome. - Additional Information Resuscitation Status: Full Code Discharge Diet: Tube Feeding (Comments) Discharge Activity: Activity As Tolerated, Balance Activity w/Rest, Walk Frequently Prescriptions: Dronabinol [Marinol 2.5 mg Capsule] 2.5 mg PO BID 30 Days #60 capsule Hydromorphone HCl [Dilaudid 2 mg Tablet] 4 mg PO Q5HP PRN 3 Days #30 tablet PRN Reason: For Pain Metoclopramide HCl 10 mg PO ACHS 30 Days #120 tablet Nut.tx.impaired Digest Fxn [Ensure Clear] 237 ml PO 6XD 60 Days #360 pkg Pantoprazole Sodium [Protonix] 40 mg PO BIDACBS 30 Days #60 tablet. Sucralfate [Carafate] 1 gm PO ACHS 30 Days #1200 ml Home Medications: Clonazepam [Klonopin] 1 mg PO QHS 11/04/17 Dronabinol [Marinol 2.5 mg Capsule] 2.5 mg PO BID 30 Days #60 capsule 11/19/17 Hydromorphone HCl [Dilaudid 2 mg Tablet] 4 mg PO Q5HP PRN 3 Days #30 tablet 12/27 Metoclopramide HCl 10 mg PO ACHS 30 Days #120 tablet 11/19/17 Nut.tx.impaired Digest Fxn [Ensure Clear] 237 ml PO 6XD 60 Days #360 pkg Pantoprazole Sodium [Protonix] 40 mg PO BIDACBS 30 Days #60 tablet. 11/19/17 Sucralfate [Carafate] 1 gm PO ACHS 30 Days #1200 ml 11/19/17 History of Present Illness Patient complains of: Intractable nausea and vomiting History of Present Illness: 37-year-old female admitted for dehydration and weight loss for the last 2-3 months as well as chronic abdominal pain. EGD showed gastritis/duodenitis started on PPIs and Carafate. She had a CAT scan of her abdomen which also showed pelvic congestion syndrome and ACCOUNTS RECEIVABLE MANAGER was consulted but needs outpatient workup. She also underwent gastric emptying study which was positive. She continues to have abdominal pain with nausea/vomiting and unable to tolerate food and liquid as well. Initially she wanted a port placed in her chest so she can get easy hydration-as per patient she has been to the ER multiple times for dehydration and they had to put central lines each time. There is a questionable history of illicit drug abuse and hence surgery had declined on the port. A jejunostomy tube was placed for nutrition on 11/14/17. 11/14/17: Marychuy states she has been doing pretty well except she was feeling like she might have a seizure earlier. She asked for a additional dose of Ativan which was given and that seems to have calm down her sensation that she was going to have a seizure. She also complains that the Protonix she takes at home works considerably better than the proton pump inhibitor available here at the hospital. She is anxious about getting home soon and this is being a problem for her in that she tends to develop more symptoms when she is anxious. She has been working with the discharge planning and home health agencies to arrange for her departure to do her home very soon. She has been doing well postoperatively, with the initiation of feedings per her new feeding tube beginning today. 11/15/17: Marychuy complains today of having a lot of pain. She is not getting pain relief with her current regiment. I have offered (and ordered) a pain management consultation for her. She continues to worry about the arrangements for feeding at home and the details of her treatment. She remains nauseated most of the time but has taken some small amounts of oral fluids. 11/16/17: Marychuy is focused on getting home [facility]. Her pain is better controlled on PM regiment. she should reach her feeding rate goal tonight and discharge as soon as tomorrow will be considered. 11/17/17: Marychuy complains that she had a somewhat difficult night and did not sleep well after her G-tube feeding rate was increased to 45 mL/h. She claims that she was having cramping and general discomfort in her abdomen but it seems to be getting a little bit better this morning. She is asking if her Reglan can be increased or made more frequently as it seems to help with the spasms. She did not complain of nausea or vomiting and overall her general abdominal pain has been quite well controlled with her current medications. 11/18&12/27: Plans have been made for Marychuy to be discharged yesterday however due to technical difficulties in arranging for the discharge with the home health agency to provide her nutritional semi-elemental feedings her discharge was delayed until today. She again has been doing very well throughout her hospital course especially the last week or so after a fairly zenaida beginning when she did not respond well to therapy but once her gastric tube was placed to begin receiving adequate nutrition she has certainly recovered fairly quickly. She is looking forward to being at home today and is being discharged in improved and stable condition. Physical Exam Vital Signs: Temp Pulse Resp BP Pulse Ox 98.3 F 83 20 102/74 100 11/19/17 16:21 11/19/17 16:21 11/19/17 16:21 11/19/17 16:21 11/19/17 16:21 Intake & Output 11/18/17 11/19/17 11/20/17 06:59 06:59 06:59 Intake Total 4152 4191 813 Balance 4152 4191 813 Weight 53.6 kg 53.8 kg General appearance: PRESENT: no acute distress, cooperative Head exam: PRESENT: atraumatic, normocephalic Eye exam: PRESENT: conjunctiva pink. ABSENT: conjunctival injection Ear exam: PRESENT: normal external ear exam. ABSENT: drainage Mouth exam: PRESENT: moist, neck supple, tongue midline Neck exam: ABSENT: thyromegaly, tracheal deviation Respiratory exam: PRESENT: clear to auscultation nella, symmetrical, unlabored Cardiovascular exam: PRESENT: RRR. ABSENT: clicks, gallop, rubs Vascular exam: PRESENT: normal capillary refill. ABSENT: pallor GI/Abdominal exam: PRESENT: soft, other - Wearing abdominal binder at the time of my exam Extremities exam: ABSENT: joint swelling, pedal edema Musculoskeletal exam: PRESENT: full ROM, normal inspection Neurological exam: PRESENT: alert, awake, oriented to person, oriented to place , oriented to time, oriented to situation, CN II-XII grossly intact. ABSENT: motor sensory deficit Psychiatric exam: PRESENT: appropriate affect, normal mood Skin exam: ABSENT: jaundice, rash, urticaria Results Laboratory Results: 11/16/17 13:34 11/15/17 19:00 11/04/17 05:10 Creatine Kinase 53 Impressions: Chest X-Ray 11/05/17 00:00 IMPRESSION: CENTRAL VENOUS ACCESS CATHETER IN APPROPRIATE LOCATION. NO PNEUMOTHORAX. NEW CENTRAL LINE. Abdomen X-Ray 11/08/17 22:36 IMPRESSION: No acute findings. Gastric Emptying Nuclear Medicine 11/09/17 00:00 IMPRESSION: Delayed gastric emptying Qualifiers - * PATIENT BEING DISCHARGED WITH ANY OF THE FOLLOWING DIAGNOSIS: No Plan Discharge Plan: Discharged home in improved and stable condition. Home health to be utilized for nutrition via gastric tube feedings. Follow with pain management. Follow- up with surgery as directed. Follow-up with your primary care providers as well as her laborer pipelines and other specialist for your scheduled visits. Time Spent: Greater than 30 Minutes
== END 2017-11-19 17:36 | disposition home health service (06) | DRG 641 ==
LOC: ER 17:11 → OBSVTOIN 22:24 → EH 22:24 → 5 11-04 13:16
PROVIDERS: ADMIT Internal Medicine; ATTEND Internal Medicine
PROC: 02HV33Z Insertion of Infusion Device into Superior Vena Cava, Percutaneous Approach (ICD-10-PCS; 2017-11-05)
PROC: 0DB68ZX Excision of Stomach, Via Natural or Artificial Opening Endoscopic, Diagnostic (ICD-10-PCS; 2017-11-07)
PROC: 0DHA0UZ Insertion of Feeding Device into Jejunum, Open Approach (ICD-10-PCS; principal; 2017-11-13 15:15)
DX: E86.0 Dehydration (principal); K86.1 Other chronic pancreatitis; E46 Unspecified protein-calorie malnutrition; Z68.1 Body mass index [BMI] 19.9 or less, adult; R10.84 Generalized abdominal pain; G89.29 Other chronic pain; E87.2 Acidosis; E87.5 Hyperkalemia; K31.84 Gastroparesis; R62.7 Adult failure to thrive; N94.89 Other specified conditions associated with female genital organs and menstrual cycle; K20.9 Esophagitis, unspecified; K29.70 Gastritis, unspecified, without bleeding; K29.80 Duodenitis without bleeding; K21.9 Gastro-esophageal reflux disease without esophagitis; I10 Essential (primary) hypertension; M19.90 Unspecified osteoarthritis, unspecified site; F90.9 Attention-deficit hyperactivity disorder, unspecified type; Z79.899 Other long term (current) drug therapy; Z91.040 Latex allergy status; Z88.8 Allergy status to other drugs, medicaments and biological substances
CPT/HCPCS: 36415; 43239; 71045; 731; 74019; 78264; 80048; 80053; 80076; 80307; 81001; 81025; 82550; 83036; 83690; 83735; 85025; 85027; 88305; 88342; 96361; 96374; 96375; 99285; A9270-GY; A9541; C1751; G0378; J0330; J0690; J1050; J1100; J1170; J1630; J2060; J2250; J2405; J2550; J2704; J2765; J3010; J3475; J3480; J3490; J7030; J7120; S0164

== ENCOUNTER 2017-12-16 14:22 | Emergency (ER) | payer OTHER ==
--- NOTE | 2017-12-16 15:21 | ER Document Report ---
ED Medical Screen (RME) - General Chief Complaint: Wound Infection Stated Complaint: ABDOMINAL PAIN Time Seen by Provider: 12/16/17 15:08 Mode of Arrival: Ambulatory Information source: Patient Notes: 37-year-old female presents with complaint of abdominal pain at her J-tube site. Patient states that J-tube was placed on November 13, 2017. She states that she has "had nothing but problems" since that time. Patient reports a low- grade temperature of 100.4 today. She also reports diarrhea. Patient was recently placed on an antibiotic by her primary care physician but is unsure what antibiotic it is. I have greeted and performed a rapid initial assessment of this patient. A comprehensive ED assessment and evaluation of the patient, analysis of test results and completion of medical decision making process we will be contacted by additional ED providers. PHYSICAL EXAMINATION: Vital signs reviewed-within normal limits GENERAL: Well-appearing, well-nourished and in no acute distress. LUNGS: No respiratory distress Musculoskeletal: Normal range of motion NEUROLOGICAL: Normal speech, normal gait. TRAVEL OUTSIDE OF THE [place] IN LAST 30 DAYS: No - HPI Onset: Other Onset/Duration: Persistent Quality of pain: Burning Associated Symptoms: Abdominal pain, Diarrhea, Fever Exacerbated by: Denies Relieved by: Denies Similar symptoms previously: Yes Recently seen / treated by doctor: Yes - Related Data Smoking: Cigarettes Frequency of alcohol use: None Drug Abuse: None Allergies/Adverse Reactions: Heparin Analogues [Heparin Agents] Allergy (Verified 11/03/17 17:16) latex [Latex] Allergy (Verified 11/03/17 17:16) TROUBLE BREATHING, RED RASH meperidine HCl [From Demerol] Allergy (Verified 11/03/17 17:16) morphine [Morphine] Allergy (Verified 11/03/17 17:16) ondansetron HCl [From Zofran] Allergy (Verified 11/03/17 17:16) scopolamine Allergy (Verified 11/03/17 17:16) promethazine HCl [From Phenergan] Adverse Reaction (Verified 11/03/17 17:16) Past Medical History - Past Medical History Cardiac Medical History: Reports: Hx Hypertension Denies: Hx Coronary Artery Disease, Hx Heart Attack Pulmonary Medical History: Reports: Hx Asthma - EXERCISE INDUCED Denies: Hx Bronchitis, Hx COPD, Hx Pneumonia Neurological Medical History: Reports: Hx Seizures. Denies: Hx Cerebrovascular Accident Renal/ Medical History: Denies: Hx Peritoneal Dialysis GI Medical History: Reports: Hx Gastroesophageal Reflux Disease Musculoskeltal Medical History: Reports Hx Arthritis Psychiatric Medical History: Reports: Hx Attention Deficit Hyperactivity Disorder, Hx Depression Traumatic Medical History: Reports: Hx Traumatic Brain Injury Past Surgical History: Reports: Hx Abdominal Surgery - EXPLORATORY LAP, Hx Appendectomy, Hx Breast Surgery - LUMPS UNDER ARMS BILAT, Hx Section - X3, Hx Cholecystectomy, Hx Gynecologic Surgery - R OVARY, UTERUS REPAIR, Hx Orthopedic Surgery - L WRIST SCREW, ULNAR NERVE, Hx Tubal Ligation, Other - H/S with uterine scar removed and apparent drain/balloon placement per pt - Immunizations Hx Diphtheria, Pertussis, Tetanus Vaccination: Yes - unknown Physical Exam - Vital signs Vitals: Temp Pulse Resp BP Pulse Ox 98.3 F 87 14 110/76 100 12/16/17 14:29 12/16/17 14:29 12/16/17 14:29 12/16/17 14:29 12/16/17 14:29 Course - Vital Signs Vital signs: Temp Pulse Resp BP Pulse Ox 98.3 F 87 14 110/76 100 12/16/17 14:29 12/16/17 14:29 12/16/17 14:29 12/16/17 14:29 12/16/17 14:29 Doctor's Discharge - Discharge Referrals: NORA CASANOVA DO [Primary Care Provider] - Follow up as needed
[2017-12-16] MEDS ORDERED: HYDROMORPHONE HCL INJ/PF 2 MG/ML AMPULE IV ONE (15:22)
[2017-12-16] MEDS ORDERED: METOCLOPRAMIDE HCL INJ/PF 10 MG/2 ML SDV IV ONE (15:22)
[2017-12-16] MEDS ORDERED: DIPHENHYDRAMINE HCL 50 MG CAPSULE PO ONE (16:26)
[2017-12-16] MEDS ORDERED: DIPHENHYDRAMINE HCL 50 MG/ML VIAL ONE (16:30)
[2017-12-16 16:31] LABS: APPEARANCE,URINE CLEAR; BILIRUBIN,URINE NEGATIVE (NEGATIVE); COLOR,URINE STRAW; GLUCOSE, URINE NEGATIVE (NEGATIVE); KETONES,URINE NEGATIVE (NEGATIVE); LEUKOCYTE ESTERASE,URINE NEGATIVE (NEGATIVE); NITRITE,URINE NEGATIVE (NEGATIVE); PROTEIN,URINE NEGATIVE (NEGATIVE); URINE SPECIFIC GRAVITY 1.008; UROBILINOGEN,URINE NEGATIVE mg/dL (<2.0)
[2017-12-16] MEDS ORDERED: DIPHENHYDRAMINE HCL 50 MG/ML VIAL IV ONE (16:33)
[2017-12-16 16:35] LABS: ABSOLUTE BASOPHILS # (AUTO) 0.1 10^3/uL (0.0-0.2); ABSOLUTE EOSINOPHILS # (AUTO) 0.8 10^3/uL (0.0-0.6); ABSOLUTE LYMPHOCYTES (AUTO) 2.2 10^3/uL (0.5-4.7); ABSOLUTE MONOCYTES (AUTO) 0.4 10^3/uL (0.1-1.4); ABSOLUTE NEUT (AUTO) 2.8 10^3/uL (1.7-8.2); BASOPHILS % (AUTO) 0.8 % (0-2); EOSINOPHILS % (AUTO) 12.2 % (0-6); HEMOGLOBIN 11.9 g/dL (12.0-15.5); LYMPHOCYTES % (AUTO) 34.6 % (13-45); MEAN CORPUSCULAR HEMOGLOBIN 32.9 pg (27.0-33.4); MEAN CORPUSCULAR VOLUME 97 fl (80-97); MONOCYTES % (AUTO) 6.9 % (3-13); PLATELET COUNT 428 10^3/uL (150-450); RED BLOOD COUNT 3.62 10^6/uL (3.72-5.28); RED CELL DISTRIBUTION WIDTH 12.7 % (11.5-14.0); SEGMENTED NEUTROPHILS % (AUTO) 45.5 % (42-78); TOTAL CELLS COUNTED % (AUTO) 100 %; WHITE BLOOD COUNT 6.3 10^3/uL (4.0-10.5)
[2017-12-16 16:55] LABS: ALANINE AMINOTRANSFERASE 19 U/L (9-52); ALBUMIN 4.4 g/dL (3.5-5.0); ALKALINE PHOSPHATASE 65 U/L (38-126); ANION GAP 8 (5-19); ASPARTATE AMINO TRANSFERASE 51 U/L (14-36); BILIRUBIN,DIRECT 0.5 mg/dL (0.0-0.4); BILIRUBIN,TOTAL 0.5 mg/dL (0.2-1.3); BLOOD UREA NITROGEN 14 mg/dL (7-20); CALCIUM 9.3 mg/dL (8.4-10.2); CARBON DIOXIDE 27 mmol/L (22-30); CHLORIDE 104 mmol/L (98-107); GLUCOSE 74 mg/dL (75-110); POTASSIUM 4.4 mmol/L (3.6-5.0); SODIUM 138.7 mmol/L (137-145); TOTAL PROTEIN 7.9 g/dL (6.3-8.2)
--- NOTE | 2017-12-16 19:30 | ER Document Report ---
ED General - General Chief Complaint: Wound Infection Stated Complaint: ABDOMINAL PAIN Time Seen by Provider: 12/16/17 15:08 Mode of Arrival: Ambulatory Notes: Patient is a 37-year-old female with a past medical history of gastroparesis, chronic opiate dependence, recent J-tube placement due to severity of her gastroparesis who presents with approximately several days of pain around the J- tube entrance site. She describes as a severe, throbbing pain worsened by any touching or dressing changes to the area. She notes that she has seen her primary care doctor regarding this issue, was started on clindamycin for treatment but that this has not improved the pain. She denies fever or constitutional symptoms. Nothing is new or different otherwise regarding her generalized abdominal pain which is chronic and is not the reason for her visit today. TRAVEL OUTSIDE OF THE [place] IN LAST 30 DAYS: No - Related Data Allergies/Adverse Reactions: Heparin Analogues [Heparin Agents] Allergy (Verified 11/03/17 17:16) latex [Latex] Allergy (Verified 11/03/17 17:16) TROUBLE BREATHING, RED RASH meperidine HCl [From Demerol] Allergy (Verified 11/03/17 17:16) morphine [Morphine] Allergy (Verified 11/03/17 17:16) ondansetron HCl [From Zofran] Allergy (Verified 11/03/17 17:16) scopolamine Allergy (Verified 11/03/17 17:16) promethazine HCl [From Phenergan] Adverse Reaction (Verified 11/03/17 17:16) Past Medical History - General Information source: Patient - Social History Smoking Status: Current Some Day Smoker Frequency of alcohol use: None Drug Abuse: None Lives with: Family Family History: Reviewed & Not Pertinent Patient has suicidal ideation: No Patient has homicidal ideation: No - Past Medical History Cardiac Medical History: Reports: Hx Hypertension Denies: Hx Coronary Artery Disease, Hx Heart Attack Pulmonary Medical History: Reports: Hx Asthma - EXERCISE INDUCED Denies: Hx Bronchitis, Hx COPD, Hx Pneumonia Neurological Medical History: Reports: Hx Seizures. Denies: Hx Cerebrovascular Accident Renal/ Medical History: Denies: Hx Peritoneal Dialysis GI Medical History: Reports: Hx Gastroesophageal Reflux Disease Musculoskeletal Medical History: Reports Hx Arthritis Psychiatric Medical History: Reports: Hx Attention Deficit Hyperactivity Disorder, Hx Depression Traumatic Medical History: Reports: Hx Traumatic Brain Injury Past Surgical History: Reports: Hx Abdominal Surgery - EXPLORATORY LAP, Hx Appendectomy, Hx Breast Surgery - LUMPS UNDER ARMS BILAT, Hx Section - X3, Hx Cholecystectomy, Hx Gynecologic Surgery - R OVARY, UTERUS REPAIR, Hx Orthopedic Surgery - L WRIST SCREW, ULNAR NERVE, Hx Tubal Ligation, Other - H/S with uterine scar removed and apparent drain/balloon placement per pt - Immunizations Hx Diphtheria, Pertussis, Tetanus Vaccination: Yes - unknown Review of Systems - Review of Systems Notes: Constitutional: Negative for fever. HENT: Negative for sore throat. Eyes: Negative for visual changes. Cardiovascular: Negative for chest pain. Respiratory: Negative for shortness of breath. Gastrointestinal: Positive for abdominal pain Genitourinary: Negative for dysuria. Musculoskeletal: Negative for back pain. Skin: Positive for rash. Neurological: Negative for headaches, weakness or numbness. 10 point ROS negative except as marked above and in HPI. Physical Exam - Vital signs Vitals: Temp Pulse Resp BP Pulse Ox 98.3 F 87 14 110/76 100 12/16/17 14:29 12/16/17 14:29 12/16/17 14:29 12/16/17 14:29 12/16/17 14:29 Interpretation: Normal Notes: PHYSICAL EXAMINATION: GENERAL: Well-appearing, well-nourished and in no acute distress. HEAD: Atraumatic, normocephalic. EYES: Pupils equal round and reactive to light, extraocular movements intact, sclera anicteric, conjunctiva are normal. ENT: nares patent, oropharynx clear without exudates. Moist mucous membranes. NECK: Normal range of motion, supple without lymphadenopathy LUNGS: Breath sounds clear to auscultation bilaterally and equal. No wheezes rales or rhonchi. HEART: Regular rate and rhythm without murmurs ABDOMEN: Soft, nontender, normoactive bowel sounds. No guarding, no rebound. No masses appreciated. EXTREMITIES: Normal range of motion, no pitting or edema. No cyanosis. NEUROLOGICAL: No focal neurological deficits. Moves all extremities spontaneously and on command. PSYCH: Normal mood, normal affect. SKIN: Warm, Dry, normal turgor, minimal erythema and purulent fluid around the J tube site without induration or fluctuence Course - Re-evaluation Re-evalutation: 12/16/17 19:31 Patient presents with a local signs of infection around the J-tube site that appear quite mild, already on appropriate antibiotic therapy. Anticipate that there is a component of hyperalgesia from chronic hydromorphone use. Labs unremarkable. She does not meet Sirs or sepsis criteria. I discussed with the surgeon on-call who will evaluate given that this is a recent procedure performed by the surgical service here in the hospital. 12/16/17 20:00 Dr. Howard is in agreement with management. Patient will continue kanamycin and local wound dressings at home. No further management changes recommended. At this time will discharge with return precautions and follow-up recommendations. Verbal discharge instructions given a the bedside and opportunity for questions given. Medication warnings reviewed. Patient is in agreement with this plan and has verbalized understanding of return precautions and the need for primary care follow-up in the next 24-72 hours. - Vital Signs Vital signs: Temp Pulse Resp BP Pulse Ox 98.6 F 76 14 98/63 L 100 12/16/17 18:30 12/16/17 18:30 12/16/17 14:29 12/16/17 18:30 12/16/17 18:30 - Laboratory Result Diagrams: 12/16/17 16:21 12/16/17 16:21 Laboratory results interpreted by me: 12/16/17 12/16/17 12/16/17 15:21 16:21 16:21 RBC 3.62 L Hgb 11.9 L Hct 35.0 L Eosinophils % 12.2 H Absolute Eosinophils 0.8 H Glucose 74 L Direct Bilirubin 0.5 H AST 51 H Urine Ascorbic Acid 20 H Discharge - Discharge Clinical Impression: Chronic generalized abdominal pain, Jejunostomy tube site pain Condition: Good Disposition: HOME, SELF-CARE Additional Instructions: Dr. Howard is in agreement that you should continue taking clindamycin as prescribed. Please continue your normal home pain medications and dressings as recommended. Your labs are otherwise normal today. Return for any additional concerns you may have including spreading redness from the area, increasing drainage from the area, worsening pain, fever greater than 101 F. Referrals: NORA CASANOVA DO [Primary Care Provider] - Follow up as needed
[2017-12-16] MEDS ORDERED: HYDROMORPHONE HCL INJ/PF 2 MG/ML AMPULE IV PRN (19:32)
[2017-12-17 05:41] VITALS: BP 108/65
== END 2017-12-16 20:13 | disposition home or self-care (01) ==
LOC: ER 14:22
DX: G89.29 Other chronic pain (principal); R10.84 Generalized abdominal pain; Z43.4 Encounter for attention to other artificial openings of digestive tract; I10 Essential (primary) hypertension; Z91.040 Latex allergy status; Z90.49 Acquired absence of other specified parts of digestive tract
CPT/HCPCS: 96376; 99283; 96374; 96375; 36415; 87070; 87205; 85025; 87075; 87077; 80053; 81001; 87186; J1200; J2765; J1170

== ENCOUNTER 2018-01-03 17:14 | Inpatient (IN) | payer OTHER ==
[2018-01-03] MEDS ORDERED: NORMAL SALINE 1000 ML 1,000 ML IV ONE (17:59)
--- NOTE | 2018-01-03 18:03 | ER Document Report ---
ED General - General Chief Complaint: Abdominal Pain Stated Complaint: ABDOMINAL PAIN Time Seen by Provider: 01/03/18 17:29 TRAVEL OUTSIDE OF THE [place] IN LAST 30 DAYS: No - HPI Notes: Patient is a 37-year-old female that presents to the emergency department for chief complaint of J-tube displacement. Patient states that she had a G-tube placed on 11/13/17 because of an inability to tolerate p.o. nutrition. She has gastritis, chronic pancreatitis and gastroparesis. Patient has had difficulty with the J-tube flushing over the last 3-4 days. She states today while standing the tube fell out. She reports pain around the tube site that is constant, sharp and nonradiating. She did attempt to eat a peanut butter and jelly sandwich today but threw it up. She denies any hematemesis or hematochezia. She denies any fevers or chills. Past Medical History: Gastroparesis, chronic pancreatitis, gastritis, esophagitis Past Surgical History: J-tube, appendectomy, cholecystectomy Social History: Denies drugs alcohol and tobacco Family History: Reviewed and noncontributory for presenting illness Allergies: Reviewed, see documented allergy list. REVIEW OF SYSTEMS: CONSTITUTIONAL : No fever No chills No diaphoresis No recent illness EENT: No vision changes No congestion No sore throat CARDIOVASCULAR: No chest pain No palpitations RESPIRATORY: No shortness of breath No cough No difficulty breathing GASTROINTESTINAL: abdominal pain nausea vomiting No diarrhea GENITOURINARY: No dysuria No hematuria No difficulty urinating MUSCULOSKELETAL: No back pain No leg pain No arm pain SKIN: No rashes No lesions LYMPHATIC: No swollen, enlarged glands. NEUROLOGICAL: No lightheadedness No headache No weakness No paresthesias PSYCHIATRIC: No anxiety No depression PHYSICAL EXAMINATION: Vital signs reviewed, nursing noted reviewed. GENERAL: Well-appearing, well-nourished and in no acute distress. HEAD: Atraumatic, normocephalic. EYES: Eyes appear normal, extraocular movements intact, sclera anicteric, conjunctiva are normal. ENT: nares patent, oropharynx clear without exudates. Moist mucous membranes. NECK: Normal range of motion, supple without lymphadenopathy LUNGS: Breath sounds clear to auscultation bilaterally and equal. No wheezes rales or rhonchi. HEART: Regular rate and rhythm without murmurs ABDOMEN: Soft, J-tube ostomy with surrounding erythema and tenderness to palpation draining dark stomach contents. No rebound, guarding, or rigidity. No masses appreciated. EXTREMITIES: Nontender, good range of motion, no pitting or edema. NEUROLOGICAL: No focal neurological deficits. Moves all extremities spontaneously Motor and sensory grossly intact on exam. PSYCH: Normal mood, normal affect. SKIN: Warm, Dry, normal turgor, no rashes or lesions noted on exposed skin - Related Data Allergies/Adverse Reactions: Heparin Analogues [Heparin Agents] Allergy (Verified 11/03/17 17:16) latex [Latex] Allergy (Verified 11/03/17 17:16) TROUBLE BREATHING, RED RASH meperidine HCl [From Demerol] Allergy (Verified 11/03/17 17:16) morphine [Morphine] Allergy (Verified 11/03/17 17:16) ondansetron HCl [From Zofran] Allergy (Verified 11/03/17 17:16) scopolamine Allergy (Verified 11/03/17 17:16) promethazine HCl [From Phenergan] Adverse Reaction (Verified 11/03/17 17:16) Past Medical History - Social History Smoking Status: Never Smoker Family History: Reviewed & Not Pertinent - Past Medical History Cardiac Medical History: Reports: Hx Hypertension Denies: Hx Coronary Artery Disease, Hx Heart Attack Pulmonary Medical History: Reports: Hx Asthma - EXERCISE INDUCED Denies: Hx Bronchitis, Hx COPD, Hx Pneumonia Neurological Medical History: Reports: Hx Seizures. Denies: Hx Cerebrovascular Accident Renal/ Medical History: Denies: Hx Peritoneal Dialysis GI Medical History: Reports: Hx Gastroesophageal Reflux Disease Musculoskeletal Medical History: Reports Hx Arthritis Psychiatric Medical History: Reports: Hx Attention Deficit Hyperactivity Disorder, Hx Depression Traumatic Medical History: Reports: Hx Traumatic Brain Injury Past Surgical History: Reports: Hx Abdominal Surgery - EXPLORATORY LAP, Hx Appendectomy, Hx Breast Surgery - LUMPS UNDER ARMS BILAT, Hx Section - X3, Hx Cholecystectomy, Hx Gynecologic Surgery - R OVARY, UTERUS REPAIR, Hx Orthopedic Surgery - L WRIST SCREW, ULNAR NERVE, Hx Tubal Ligation, Other - H/S with uterine scar removed and apparent drain/balloon placement per pt - Immunizations Hx Diphtheria, Pertussis, Tetanus Vaccination: Yes - unknown Review of Systems - Review of Systems Notes: Dictated Physical Exam - Vital signs Vitals: Temp Pulse Resp BP Pulse Ox 98.4 F 97 16 106/68 100 01/03/18 17:17 01/03/18 17:17 01/03/18 17:17 01/03/18 17:17 01/03/18 17:17 - Notes Notes: Dictated Course - Re-evaluation Re-evalutation: 01/03/18 18:02 Vitals reviewed. Nursing notes reviewed. Patient given IV hydration and pain medication. I discussed her tube care with Dr. Metcalf who will take her to the operating room tomorrow for new J-tube placement. He did not want any further workup started in the emergency room. He accepted admission. Patient in agreement with this plan. Stable at time of admission. - Vital Signs Vital signs: Temp Pulse Resp BP Pulse Ox 98.4 F 97 16 106/68 100 01/03/18 17:17 01/03/18 17:17 01/03/18 17:17 01/03/18 17:17 01/03/18 17:17 Discharge - Discharge Clinical Impression: Jejunostomy tube fell out Condition: Stable Disposition: ADMITTED INPATIENT Admitting Provider: Surgicalist Unit Admitted: Surgical Floor Referrals: NORA CASANOVA DO [Primary Care Provider] - Follow up as needed
[2018-01-03] MEDS ORDERED: KETOROLAC TROMETHAMINE INJ/PF 30 MG/1 ML SDV IV ONE (18:17)
[2018-01-03] MEDS ORDERED: DEXTROSE 50%-WATER 25 GM/50 ML DISP.SYRIN IV PRN ×2 (18:31)
[2018-01-03] MEDS ORDERED: GLUCAGON,HUMAN RECOMB 1 MG INJ SUBCUT PRN (18:31)
[2018-01-03] MEDS ORDERED: DEXTROSE 40% GEL 15 GM TUBE PO PRN ×2 (18:31)
--- NOTE | 2018-01-03 18:53 | PDOC H&P ---
History of Present Illness Admission Date/PCP: 01/03/18 18:29 NORA CASANOVA DO Patient complains of: Dislodged J-tube History of Present Illness: TRAVIS HORVATH is a 37 year old female who is approximately 2 months status post placement of J-tube for enteral nutrition. She has intractable, idiopathic gastroparesis. Patient has multiple episodes of nausea and vomiting daily. The only way she gets nutrition is through her J-tube. Patient reports that her J-tube "fell out" today. Denies pulling, tugging, or otherwise manipulating the J-tube. Currently the patient reports left-sided abdominal pain at the J-tube insertion site. She denies chest pain, fevers, chills, headache, dizziness. She does report malaise, fatigue, nausea, vomiting. Nothing makes her pain better. Her pain does not radiate. Past Medical History Cardiac Medical History: Reports: Hypertension Denies: Coronary Artery Disease, Myocardial Infarction Pulmonary Medical History: Reports: Asthma - EXERCISE INDUCED Denies: Bronchitis, Chronic Obstructive Pulmonary Disease (COPD), Pneumonia Neurological Medical History: Reports: Seizures GI Medical History: Reports: Gastroesophageal Reflux Disease, Other - Severe gastroparesis Musculoskeltal Medical History: Reports: Arthritis Psychiatric Medical History: Reports: Attention Deficit Hyperactivity Disorder, Depression Traumatic Medical History: Reports: Traumatic Brain Injury Hematology: Reports: Anemia Past Surgical History Past Surgical History: Reports: Appendectomy, Section - X3, Cholecystectomy, Orthopedic Surgery - L WRIST SCREW, ULNAR NERVE, Tubal Ligation , Other - H/S with uterine scar removed. Feeding jejunostomy. Social History Smoking Status: Never Smoker Frequency of Alcohol Use: Occasional Hx Recreational Drug Use: No Drugs: None Hx Prescription Drug Abuse: No Family History Family History: Reviewed & Not Pertinent Parental Family History Reviewed: Yes Children Family History Reviewed: Yes Sibling(s) Family History Reviewed.: Yes Medication/Allergy Allergies/Adverse Reactions: Heparin Analogues [Heparin Agents] Allergy (Verified 11/03/17 17:16) latex [Latex] Allergy (Verified 11/03/17 17:16) TROUBLE BREATHING, RED RASH meperidine HCl [From Demerol] Allergy (Verified 11/03/17 17:16) morphine [Morphine] Allergy (Verified 11/03/17 17:16) ondansetron HCl [From Zofran] Allergy (Verified 11/03/17 17:16) scopolamine Allergy (Verified 11/03/17 17:16) promethazine HCl [From Phenergan] Adverse Reaction (Verified 11/03/17 17:16) Review of Systems Constitutional: PRESENT: anorexia, fatigue. ABSENT: chills, fever(s) Eyes: ABSENT: visual disturbances Nose, Mouth, and Throat: PRESENT: sore throat Cardiovascular: ABSENT: chest pain, palpitations Respiratory: ABSENT: cough, dyspnea Gastrointestinal: PRESENT: abdominal pain - Left-sided, nausea, vomiting Musculoskeletal: ABSENT: back pain Integumentary: PRESENT: pruritus, rash Neurological: PRESENT: abnormal speech, confusion Psychiatric: PRESENT: depression, other - History of TBI Endocrine: ABSENT: cold intolerance, heat intolerance Hematologic/Lymphatic: ABSENT: easy bleeding, easy bruising Physical Exam Vital Signs: Temp Pulse Resp BP Pulse Ox 98.4 F 97 16 106/68 100 01/03/18 17:17 01/03/18 17:17 01/03/18 17:17 01/03/18 17:17 01/03/18 17:17 General appearance: PRESENT: no acute distress Head exam: PRESENT: atraumatic, normocephalic Eye exam: PRESENT: EOMI, PERRLA. ABSENT: scleral icterus Mouth exam: ABSENT: neck supple Neck exam: ABSENT: meningismus, tenderness, thyromegaly, tracheal deviation Respiratory exam: PRESENT: clear to auscultation nella. ABSENT: chest wall tenderness Cardiovascular exam: PRESENT: RRR Pulses: PRESENT: normal radial pulses Vascular exam: PRESENT: normal capillary refill. ABSENT: pallor GI/Abdominal exam: PRESENT: soft, tenderness - At jejunostomy site Rectal exam: PRESENT: deferred Extremities exam: ABSENT: clubbing Musculoskeletal exam: ABSENT: deformity Neurological exam: PRESENT: alert, awake, oriented to person, oriented to place , oriented to time, oriented to situation Psychiatric exam: PRESENT: agitated - Mild. ABSENT: anxious, depressed Focused psych exam: ABSENT: delusional Skin exam: ABSENT: cyanosis, jaundice Assessment & Plan - Diagnosis (1) Dislodged jejunostomy tube Is this a current diagnosis for this admission?: Yes - Plan Summary Plan Summary: This is a 37-year-old female with a previously placed jejunostomy. Currently, her jejunostomy has dislodged. I will admit her to the hospital, keep her n.p.o., and plan for replacement of her jejunostomy tomorrow. This is been discussed at length with the patient. She is in agreement with the treatment plan. Risks/benefits discussed, informed consent obtained, and all questions answered.
[2018-01-03] MEDS: FAMOTIDINE INJ/PF 20 MG/2 ML SDV IV SCH (22:11)
[2018-01-03] MEDS: KETOROLAC TROMETHAMINE INJ/PF 30 MG/1 ML SDV IV SCH (22:11)
[2018-01-04] MEDS: DEXTROSE 5%-LACTATED RINGERS 1,000 ML IV PRN ×4 (03:48→22:18)
[2018-01-04] MEDS: HYDROMORPHONE HCL INJ/PF 2 MG/ML AMPULE IV PRN ×5 (03:48→22:17)
[2018-01-04] MEDS: KETOROLAC TROMETHAMINE INJ/PF 30 MG/1 ML SDV IV SCH ×3 (05:27→21:05)
[2018-01-04] MEDS: FAMOTIDINE INJ/PF 20 MG/2 ML SDV IV SCH ×2 (09:37→21:04)
--- NOTE | 2018-01-04 10:25 | PDOC PROGRESS REPORT ---
Subjective Progress Note for:: 01/04/18 Subjective:: This is a 37-year-old female with a dislodged jejunostomy. Jejunostomy is for enteral nutrition secondary to severe gastroparesis. The patient reports abdominal pain at the jejunostomy site. She also has bilious drainage from the site. She denies fevers, chills, headache. She reports fatigue, malaise, dizziness, abdominal pain, nausea, and vomiting. Reason For Visit: DISLODGED J-TUBE Physical Exam Vital Signs: Temp Pulse Resp BP Pulse Ox 98.3 F 64 16 98/66 L 100 01/04/18 07:33 01/04/18 07:33 01/04/18 07:33 01/04/18 07:33 01/04/18 07:33 Intake & Output 01/03/18 01/04/18 01/05/18 06:59 06:59 06:59 Intake Total 1000 Output Total 750 Balance 250 Weight 52.6 kg General appearance: PRESENT: other - Thin/cachectic Head exam: PRESENT: normocephalic Eye exam: PRESENT: EOMI. ABSENT: scleral icterus Mouth exam: PRESENT: moist, neck supple Neck exam: ABSENT: meningismus, tenderness, thyromegaly, tracheal deviation Cardiovascular exam: PRESENT: RRR Pulses: PRESENT: normal radial pulses Vascular exam: PRESENT: normal capillary refill. ABSENT: pallor GI/Abdominal exam: PRESENT: soft, tenderness - Jejunostomy site Rectal exam: PRESENT: deferred Extremities exam: ABSENT: clubbing Musculoskeletal exam: ABSENT: deformity Neurological exam: PRESENT: alert, awake, oriented to person, oriented to place , oriented to time, oriented to situation, CN II-XII grossly intact Psychiatric exam: PRESENT: agitated, anxious. ABSENT: depressed Focused psych exam: ABSENT: delusional Skin exam: ABSENT: cyanosis, erythema, jaundice Assessment & Plan - Diagnosis (1) Dislodged jejunostomy tube Is this a current diagnosis for this admission?: Yes - Plan Summary Plan Summary: Is a 37-year-old female with a dislodged jejunostomy. I plan to take her to the operating room today and attempt to reinsert the tube. Hopefully this can be performed percutaneously If not, open jejunostomy will be performed. This is been discussed with the patient at length. She is in agreement with the treatment plan. Risks/benefits discussed, informed consent obtained, and all questions answered.
[2018-01-04] MEDS ORDERED: KETAMINE HCL INJ 500 MG/10 ML VIAL ONE (16:54)
[2018-01-04] MEDS ORDERED: LIDOCAINE 2% INJ-PF (20 MG/ML) 10 ML AMPUL ONE (16:54)
[2018-01-04] MEDS ORDERED: ONDANSETRON HCL INJ/PF 4 MG/2 ML SDV ONE (16:55)
[2018-01-04] MEDS ORDERED: PROPOFOL INJ 200 MG/20 ML VIAL IV ONE (16:55)
[2018-01-04] MEDS ORDERED: MIDAZOLAM 2 MG/2 ML INJ ONE (16:55)
[2018-01-04] MEDS ORDERED: FENTANYL CITRATE INJ/PF 100 MCG/2 ML AMPUL ONE (16:55)
[2018-01-04] MEDS ORDERED: CEFOXITIN SODIUM 2 GM in DEXTROSE 5%-WATER 100 ML IV PRN (17:07)
[2018-01-04] MEDS ORDERED: BUPIVACAINE HCL 0.5 % INJ/PF 30 ML SDV ONE (17:18)
[2018-01-04] MEDS ORDERED: PROMETHAZINE HCL INJ 25 MG/1 ML VIAL IV PRN ×2 (17:52)
[2018-01-04] MEDS ORDERED: FENTANYL CITRATE INJ/PF 100 MCG/2 ML AMPUL IV PRN ×3 (17:52)
[2018-01-04] MEDS ORDERED: ONDANSETRON HCL INJ/PF 4 MG/2 ML SDV IV PRN (17:52)
[2018-01-04] MEDS ORDERED: DIPHENHYDRAMINE HCL 50 MG/ML VIAL IV PRN (17:52)
[2018-01-04] MEDS: FENTANYL CITRATE INJ/PF 100 MCG/2 ML AMPUL ONE ×2 (18:31→18:35)
[2018-01-04] MEDS ORDERED: HYDROMORPHONE HCL INJ/PF 2 MG/ML AMPULE ONE (18:42)
[2018-01-05] MEDS: HYDROMORPHONE HCL INJ/PF 2 MG/ML AMPULE IV PRN ×6 (02:28→23:17)
[2018-01-05] MEDS: KETOROLAC TROMETHAMINE INJ/PF 30 MG/1 ML SDV IV SCH ×3 (06:16→22:49)
[2018-01-05] MEDS: DEXTROSE 5%-LACTATED RINGERS 1,000 ML IV PRN ×3 (06:16→22:58)
[2018-01-05] MEDS: FAMOTIDINE INJ/PF 20 MG/2 ML SDV IV SCH ×2 (10:29→22:49)
[2018-01-05] MEDS ORDERED: HYDROMORPHONE HCL GT PRN (10:52)
[2018-01-05] MEDS ORDERED: ASPIRIN PO PRN (10:52)
[2018-01-05] MEDS ORDERED: TEMAZEPAM 15 MG CAPSULE PO PRN (10:52)
[2018-01-05] MEDS ORDERED: CAFFEINE PO PRN (10:52)
[2018-01-05] MEDS ORDERED: FENTANYL 25 MCG/HR PATCH.TD72 TOP SCH (12:00)
--- NOTE | 2018-01-05 12:39 | RADIOLOGY REPORT (SQ) ---
EXAM DESCRIPTION: INJECT EXISTING/TUBE PLACEMENT; NO CHG FLUORO COMPLETED DATE/TIME: 01/04/2018 6:37 pm REASON FOR STUDY: J TUBE PLACEMENT COMPARISON: None. FLUOROSCOPY TIME: 2.7 minutes 3 images saved to PACS. TECHNIQUE: Intra-operative images acquired during surgical procedure to evaluate progress. NUMBER OF IMAGES: 3 LIMITATIONS: None. FINDINGS: Selected images from jejunostomy tube placement. IMPRESSION: IMAGE(S) OBTAINED DURING PROCEDURE. COMMENT: Quality ID [id number]: Final reports for procedures using fluoroscopy that document radiation exp osure indices, or exposure time and number of fluorographic images (if radiation exposure indices are not available) Please consult full operative report of the attending physician for description of the procedure. TECHNICAL DOCUMENTATION: JOB ID: [id number] [employer]- All Rights Reserved Reading location - IP/workstation name: [email or web address]
--- NOTE | 2018-01-05 12:39 | RADIOLOGY REPORT (SQ) ---
EXAM DESCRIPTION: INJECT EXISTING/TUBE PLACEMENT; NO CHG FLUORO COMPLETED DATE/TIME: 01/04/2018 6:37 pm REASON FOR STUDY: J TUBE PLACEMENT COMPARISON: None. FLUOROSCOPY TIME: 2.7 minutes 3 images saved to PACS. TECHNIQUE: Intra-operative images acquired during surgical procedure to evaluate progress. NUMBER OF IMAGES: 3 LIMITATIONS: None. FINDINGS: Selected images from jejunostomy tube placement. IMPRESSION: IMAGE(S) OBTAINED DURING PROCEDURE. COMMENT: Quality ID [id number]: Final reports for procedures using fluoroscopy that document radiation exp osure indices, or exposure time and number of fluorographic images (if radiation exposure indices are not available) Please consult full operative report of the attending physician for description of the procedure. TECHNICAL DOCUMENTATION: JOB ID: [id number] [email or web address]- All Rights Reserved Reading location - IP/workstation name: [email or web address]
[2018-01-05] MEDS: MUPIROCIN CALCIUM 2% CREAM 15 GM TOP SCH ×2 (13:04→22:48)
[2018-01-05] MEDS: SUCRALFATE SUSP 1 GM/10 ML UDCUP GT SCH ×3 (14:15→22:49)
[2018-01-05] MEDS: METOCLOPRAMIDE HCL 10 MG TABLET GT SCH ×2 (15:16→22:49)
[2018-01-05] MEDS ORDERED: LIDOCAINE 1% INJ (10 MG/ML) 10 ML MDV INJ ONE (16:45)
[2018-01-05] MEDS ORDERED: (PENDING PHARMACY ID) (Dronabinol [Marinol] 5 MG) PO SCH (18:00)
[2018-01-05] MEDS: DRONABINOL 2.5 MG CAPSULE GT SCH (18:52)
[2018-01-05] MEDS: LANSOPRAZOLE 30 MG TAB.RAP.DR GT SCH (18:53)
--- NOTE | 2018-01-05 19:24 | PDOC PROGRESS REPORT ---
Subjective Progress Note for:: 01/05/18 Subjective:: This is a 37-year-old female admitted with a dislodged jejunostomy. Her jejunostomy is for enteral nutrition secondary to severe gastroparesis. The patient reports abdominal pain at the jejunostomy site. She also has bilious drainage from around the tube. She denies fevers, chills, headache. She reports fatigue, malaise, dizziness, abdominal pain, nausea, and vomiting. Reason For Visit: DISLODGED J-TUBE Physical Exam Vital Signs: Temp Pulse Resp BP Pulse Ox 98.8 F 60 16 108/83 100 01/05/18 16:21 01/05/18 16:21 01/05/18 16:21 01/05/18 16:21 01/05/18 16:21 Intake & Output 01/04/18 01/05/18 01/06/18 06:59 06:59 06:59 Intake Total 1000 4235 1097 Output Total 750 1550 2300 Balance 250 2685 -1203 Weight 52.6 kg General appearance: PRESENT: no acute distress Head exam: PRESENT: atraumatic, normocephalic Eye exam: PRESENT: EOMI, PERRLA Mouth exam: PRESENT: moist, neck supple Neck exam: ABSENT: meningismus, tenderness, thyromegaly, tracheal deviation Respiratory exam: PRESENT: unlabored. ABSENT: chest wall tenderness, wheezes Cardiovascular exam: PRESENT: RRR Pulses: PRESENT: normal radial pulses Vascular exam: PRESENT: normal capillary refill. ABSENT: pallor GI/Abdominal exam: PRESENT: soft, tenderness - At jejunostomy site. ABSENT: distended Rectal exam: PRESENT: deferred Extremities exam: ABSENT: clubbing Musculoskeletal exam: ABSENT: deformity Neurological exam: PRESENT: alert, awake, oriented to person, oriented to place , oriented to time, oriented to situation, CN II-XII grossly intact Psychiatric exam: ABSENT: agitated, anxious, depressed Focused psych exam: ABSENT: delusional Skin exam: ABSENT: cyanosis, erythema, jaundice Results Impressions: Fluoroscopy 01/04/18 17:00 IMPRESSION: IMAGE(S) OBTAINED DURING PROCEDURE. Tube Placement 01/04/18 17:00 IMPRESSION: IMAGE(S) OBTAINED DURING PROCEDURE. Assessment & Plan - Diagnosis (1) Dislodged jejunostomy tube Is this a current diagnosis for this admission?: Yes - Plan Summary Plan Summary: There is a 37-year-old female status post percutaneous replacement of her jejunostomy tube under fluoroscopy. The patient is doing well today. She reports bilious drainage around her jejunostomy tube. I believe this to be related to the ulcerated area surrounding the tube. I will plan to close this area with sutures at the bedside. I will start tube feedings once the drainage stops. Continue current pain medications. Out of bed/ambulate. Home when jejunostomy tube is functioning correctly.
[2018-01-05] MEDS ORDERED: CLONAZEPAM 1 MG TABLET GT SCH (22:00)
[2018-01-05] MEDS ORDERED: (PENDING PHARMACY ID) (Clonazepam [Klonopin 0.5 Mg Tablet Rapid Dissolve] 0.5 MG) PO SCH (22:00)
[2018-01-06] MEDS: HYDROMORPHONE HCL INJ/PF 2 MG/ML AMPULE IV PRN ×4 (03:16→15:50)
[2018-01-06] MEDS: MUPIROCIN CALCIUM 2% CREAM 15 GM TOP SCH ×2 (05:54→13:55)
[2018-01-06] MEDS: KETOROLAC TROMETHAMINE INJ/PF 30 MG/1 ML SDV IV SCH ×2 (05:55→13:55)
[2018-01-06] MEDS: DEXTROSE 5%-LACTATED RINGERS 1,000 ML IV PRN (07:36)
[2018-01-06] MEDS: FAMOTIDINE INJ/PF 20 MG/2 ML SDV IV SCH (10:18)
[2018-01-06] MEDS: SUCRALFATE SUSP 1 GM/10 ML UDCUP GT SCH ×2 (10:18→13:55)
[2018-01-06] MEDS: METOCLOPRAMIDE HCL 10 MG TABLET GT SCH ×2 (10:18→13:55)
[2018-01-06] MEDS: LANSOPRAZOLE 30 MG TAB.RAP.DR GT SCH (10:18)
[2018-01-06] MEDS: DRONABINOL 2.5 MG CAPSULE GT SCH (11:08)
--- NOTE | 2018-01-06 15:06 | PDOC DISCHARGE SUMMARY ---
General - Admit/Disc Date/PCP Admission Date/Primary Care Provider: 01/03/18 18:29 NORA CASANOVA, Discharge Date: 01/06/18 - Discharge Diagnosis (1) Dislodged jejunostomy tube Is this a current diagnosis for this admission?: Yes - Additional Information Resuscitation Status: Full Code Discharge Diet: As Tolerated Discharge Activity: Activity As Tolerated Home Medications: Aspirin/Caffeine [Bc Powder Packet] 1 packet PO DAILYP PRN 01/03/18 Clonazepam [Klonopin 0.5 mg Tablet Rapid Dissolve] 0.5 mg PO QHS 01/03/18 Dextroamphetamine/Amphetamine [Adderall 10 mg Tablet] 10 mg PO DAILY 01/03/18 Dronabinol [Marinol] 5 mg PO BID 01/03/18 Fentanyl [Duragesic 25 mcg/hr Transdermal Patch] 25 mcg TOP Q3D 01/03/18 Hydromorphone HCl [Dilaudid] 4 ml GT Q4HP PRN 01/03/18 Metoclopramide HCl [Reglan 10 mg Tablet] 10 mg GT ACHS 01/03/18 Mupirocin Calcium [Bactroban 2% Cream 15 gm] 1 applic TOP TID 01/03/18 Pantoprazole Sodium [Protonix] 40 mg GT BID 01/03/18 Sucralfate [Carafate Susp 1 gm/10 ml Udcup] 10 ml GT QID 01/03/18 Temazepam [Restoril 15 mg Capsule] 15 mg PO HSP PRN 01/03/18 History of Present Illness History of Present Illness: TRAVIS HORVATH is a 37 year old female who is approximately 2 months status post placement of J-tube for enteral nutrition. She has intractable, idiopathic gastroparesis. Patient has multiple episodes of nausea and vomiting daily. The only way she gets nutrition is through her J-tube. Patient reports that her J-tube "fell out" today. Denies pulling, tugging, or otherwise manipulating the J-tube. Currently the patient reports left-sided abdominal pain at the J-tube insertion site. She denies chest pain, fevers, chills, headache, dizziness. She does report malaise, fatigue, nausea, vomiting. Nothing makes her pain better. Her pain does not radiate. Hospital Course Hospital Course: Patient was admitted to the hospital. A new jejunostomy tube was inserted under fluoroscopic guidance, over a guidewire. The patient had leakage around the jejunostomy site, and sutures were placed around the insertion site to tighten the skin. She is doing well. She is tolerating tube feedings. Her pain is controlled. At this time, she is medically fit for discharge. Physical Exam Vital Signs: Temp Pulse Resp BP Pulse Ox 98.5 F 66 16 98/67 L 99 01/06/18 12:54 01/06/18 12:54 01/06/18 12:54 01/06/18 12:54 01/06/18 12:54 Intake & Output 01/05/18 01/06/18 01/07/18 06:59 06:59 06:59 Intake Total 4235 3335 Output Total 1550 4700 Balance 2685 -1365 Weight 61.4 kg Results Impressions: Fluoroscopy 01/04/18 17:00 IMPRESSION: IMAGE(S) OBTAINED DURING PROCEDURE. Tube Placement 01/04/18 17:00 IMPRESSION: IMAGE(S) OBTAINED DURING PROCEDURE. Qualifiers - * PATIENT BEING DISCHARGED WITH ANY OF THE FOLLOWING DIAGNOSIS: No Plan Discharge Plan: Discharge home. Diet as tolerated. Activity: As tolerated. Follow-up with me in 2 weeks. Toradol 10 mg p.o. every 6 hours as needed for pain. OK to shower. Time Spent: Less than 30 Minutes
[2018-01-06 16:00] VITALS: BP 109/75
--- NOTE | 2018-01-06 22:00 | Operative Report ---
Nonrecallable Operative Report DATE OF SURGERY: 01/04/18 PREOPERATIVE DIAGNOSIS: Dislodged jejunostomy POSTOPERATIVE DIAGNOSIS: Same as above OPERATION: 1. Percutaneous insertion of an 18 Albanian red rubber jejunostomy feeding tube under fluoroscopic guidance. 2. Cauterization of hypertrophic granulation tissue using electrocautery pencil SURGEON: MYCHAL FERRIS ANESTHESIA: LMAC TISSUE REMOVED OR ALTERED: None COMPLICATIONS: None apparent ESTIMATED BLOOD LOSS: Minimal PROCEDURE: Drains/implants: 18 Albanian jejunostomy tube. Procedure in detail: After informed consent was obtained, the patient was brought to the operating room and laid in the supine position. The area of the abdomen was prepped and draped. The Jejunostomy site was examined. There was hypertrophic granulation tissue at the tube insertion site. This was cauterized using the electrocautery pencil to remove all obvious hypertrophic granulation. Next, an 18 Albanian red rubber catheter was advanced through the mature tract. This was done until resistance was met. Contrast was then injected, confirming the tip of the red rubber catheter within the small intestine. Next a 0.035 J-guidewire was advanced into the small intestine. The tube was advanced along the guidewire. Tube was found to lie distally in the small bowel. Contrast was injected into the bowel lumen. There was no leakage of contrast outside of the jejunum. Once this was confirmed, the tube was sutured to the skin using 0 Prolene suture. A dressing was placed, and the procedure was concluded. All sponge, instrument, and needle counts were correct x2. Condition: Stable.
== END 2018-01-06 16:46 | disposition home or self-care (01) | DRG 394 ==
LOC: ER 17:14 → EH 18:29 → 4N 20:15
PROVIDERS: ADMIT Surgery; ATTEND Surgery
PROC: 0DHA3UZ Insertion of Feeding Device into Jejunum, Percutaneous Approach (ICD-10-PCS; 2018-01-04)
PROC: 3E0234Z Introduction of Serum, Toxoid and Vaccine into Muscle, Percutaneous Approach (ICD-10-PCS; principal; 2018-01-06)
DX: Z43.4 Encounter for attention to other artificial openings of digestive tract (principal); K86.1 Other chronic pancreatitis; I10 Essential (primary) hypertension; K21.9 Gastro-esophageal reflux disease without esophagitis; F90.9 Attention-deficit hyperactivity disorder, unspecified type; K29.70 Gastritis, unspecified, without bleeding; K31.84 Gastroparesis; Z23 Encounter for immunization
CPT/HCPCS: 49465; 700; 81025; 90471; 90686; 96374; 99285; A9270-GY; C1769; G0008; J1170; J1885; J2250; J2405; J2704; J3010; J3490; J7030; S0028

== ENCOUNTER 2018-02-05 11:06 | Inpatient (IN) | payer OTHER, MEDICAID ==
[2018-02-05] MEDS ORDERED: HYDROMORPHONE HCL INJ/PF 2 MG/ML AMPULE IM ONE (12:08)
--- NOTE | 2018-02-05 12:09 | ER Document Report ---
ED Medical Screen (RME) - General Chief Complaint: Displaced G-tube Stated Complaint: J TUBE INSERTION Time Seen by Provider: 02/05/18 11:52 TRAVEL OUTSIDE OF THE [place] IN LAST 30 DAYS: No - Related Data Allergies/Adverse Reactions: Heparin Analogues [Heparin Agents] Allergy (Verified 02/05/18 11:56) latex [Latex] Allergy (Verified 02/05/18 11:56) TROUBLE BREATHING, RED RASH meperidine HCl [From Demerol] Allergy (Verified 02/05/18 11:56) morphine [Morphine] Allergy (Verified 02/05/18 11:56) ondansetron HCl [From Zofran] Allergy (Verified 02/05/18 11:56) scopolamine Allergy (Verified 02/05/18 11:56) promethazine HCl [From Phenergan] Adverse Reaction (Verified 02/05/18 11:56) Past Medical History - Social History Chew tobacco use (# tins/day): No Frequency of alcohol use: None Drug Abuse: None - Past Medical History Cardiac Medical History: Reports: Hx Hypertension Denies: Hx Coronary Artery Disease, Hx Heart Attack Pulmonary Medical History: Reports: Hx Asthma - EXERCISE INDUCED Denies: Hx Bronchitis, Hx COPD, Hx Pneumonia Neurological Medical History: Reports: Hx Seizures. Denies: Hx Cerebrovascular Accident Renal/ Medical History: Denies: Hx Peritoneal Dialysis GI Medical History: Reports: Hx Gastroesophageal Reflux Disease Musculoskeltal Medical History: Reports Hx Arthritis Psychiatric Medical History: Reports: Hx Attention Deficit Hyperactivity Disorder, Hx Depression Traumatic Medical History: Reports: Hx Traumatic Brain Injury Past Surgical History: Reports: Hx Abdominal Surgery - j-tube, Hx Appendectomy, Hx Breast Surgery - LUMPS UNDER ARMS BILAT, Hx Section - X3, Hx Cholecystectomy, Hx Gynecologic Surgery - R OVARY, UTERUS REPAIR, Hx Orthopedic Surgery - L WRIST SCREW, ULNAR NERVE, Hx Tubal Ligation, Other - H/S with uterine scar removed. Feeding jejunostomy. - Immunizations Hx Diphtheria, Pertussis, Tetanus Vaccination: Yes - unknown Physical Exam - Vital signs Vitals: Temp Pulse Resp BP Pulse Ox 98.0 F 83 14 111/75 100 02/05/18 11:15 02/05/18 11:15 02/05/18 11:15 02/05/18 11:15 02/05/18 11:15 Course - Re-evaluation Re-evalutation: 02/05/18 12:05 38-year-old female that presents for recurrent episodes of her J-tube being pulled out. Today it fell out as the stitch came loose. She contacted Dr. Metcalf who suggested she come to the emergency room as her J- tube is out. Unclear why she has chronic gastritis and gastroparesis. Currently she seeks pain medication. We will defer lab workup at this time. Spoke to Dr. Howard who will see this patient in the emergency department upon rooming. I have seen and performed a rapid medical screening examination for this patient. They will require further investigation and disposition determination by a second provider . 02/05/18 12:15 - Vital Signs Vital signs: Temp Pulse Resp BP Pulse Ox 97.6 F 60 16 96/52 L 99 02/05/18 20:00 02/05/18 20:00 02/05/18 20:00 02/05/18 20:00 02/05/18 20:00 Doctor's Discharge - Discharge Clinical Impression: Dislodged jejunostomy tube Condition: Stable Disposition: ADMITTED INPATIENT
--- NOTE | 2018-02-05 13:35 | ER Document Report ---
ED GI/ - General Chief Complaint: Displaced G-tube Stated Complaint: J TUBE INSERTION Time Seen by Provider: 02/05/18 11:52 Notes: Patient's J-tube came out this morning. She is having some abdominal pain. Is here to have the surgeon replace the J-tube in the OR. Patient denies any nausea or vomiting. Denies any difficulty breathing. Denies any chest pains. Has not had any fever. TRAVEL OUTSIDE OF THE [place] IN LAST 30 DAYS: No - Related Data Allergies/Adverse Reactions: Heparin Analogues [Heparin Agents] Allergy (Verified 02/05/18 11:56) latex [Latex] Allergy (Verified 02/05/18 11:56) TROUBLE BREATHING, RED RASH meperidine HCl [From Demerol] Allergy (Verified 02/05/18 11:56) morphine [Morphine] Allergy (Verified 02/05/18 11:56) ondansetron HCl [From Zofran] Allergy (Verified 02/05/18 11:56) scopolamine Allergy (Verified 02/05/18 11:56) promethazine HCl [From Phenergan] Adverse Reaction (Verified 02/05/18 11:56) Past Medical History - Social History Smoking Status: Never Smoker Chew tobacco use (# tins/day): No Frequency of alcohol use: None Drug Abuse: None Family History: Reviewed & Not Pertinent Patient has suicidal ideation: No Patient has homicidal ideation: No - Past Medical History Cardiac Medical History: Reports: Hx Hypertension Pulmonary Medical History: Reports: Hx Asthma - EXERCISE INDUCED Neurological Medical History: Reports: Hx Seizures GI Medical History: Reports: Hx Gastroesophageal Reflux Disease Musculoskeletal Medical History: Reports Hx Arthritis Psychiatric Medical History: Reports: Hx Attention Deficit Hyperactivity Disorder, Hx Depression Traumatic Medical History: Reports: Hx Traumatic Brain Injury Past Surgical History: Reports: Hx Abdominal Surgery - j-tube, Hx Appendectomy, Hx Breast Surgery - LUMPS UNDER ARMS BILAT, Hx Section - X3, Hx Cholecystectomy, Hx Gynecologic Surgery - R OVARY, UTERUS REPAIR, Hx Orthopedic Surgery - L WRIST SCREW, ULNAR NERVE, Hx Tubal Ligation, Other - H/S with uterine scar removed. Feeding jejunostomy. - Immunizations Hx Diphtheria, Pertussis, Tetanus Vaccination: Yes - unknown Review of Systems - Review of Systems Notes: REVIEW OF SYSTEMS: CONSTITUTIONAL : Denies fever. EENT: Denies eye, ear, nose or mouth or throat pain or other symptoms. CARDIOVASCULAR: Denies chest pain. RESPIRATORY: Denies cough, chest congestion, or shortness of breath. GASTRO: Has some generalized abdominal pain but no nausea, vomiting, or diarrhea. GENITOURINARY: Denies difficulty or painful urinating, urinary frequency, blood in urine. MUSCULOSKELETAL: Denies back or neck pain. Denies joint pain or swelling. SKIN: Denies rash or skin lesions. NEUROLOGICAL: Denies LOC or altered mental status. Denies headache. Denies sensory loss or motor deficits. ALL OTHER SYSTEMS REVIEWED AND NEGATIVE. Physical Exam - Vital signs Vitals: Temp Pulse Resp BP Pulse Ox 98.0 F 83 14 111/75 100 02/05/18 11:15 02/05/18 11:15 02/05/18 11:15 02/05/18 11:15 02/05/18 11:15 Course - Re-evaluation Re-evalutation: 02/05/18 19:23 PHYSICAL EXAMINATION: GENERAL: Well-appearing, in no acute distress. Vital signs were all essentially normal. HEAD: Atraumatic, normocephalic. EYES: Pupils equal round and reactive to light, extraocular movements intact. ENT: oropharynx clear without exudates. Moist mucous membranes. NECK: Normal range of motion, supple. LUNGS: Breath sounds clear and equal bilaterally. HEART: Regular rate and rhythm without murmurs. ABDOMEN: Soft, mild diffuse tenderness. Stoma for the J-tube noted. No evidence of infection. BACK: No tenderness throughout entire back. EXTREMITIES: Normal range of motion without pain. NEUROLOGICAL: Normal speech, normal gait. Normal sensory, motor, and reflex exams. Awake, alert, and oriented x3. Cranial nerves normal. PSYCH: Normal mood, normal affect. Anxious. SKIN: Warm, dry, no rashes. - Vital Signs Vital signs: Temp Pulse Resp BP Pulse Ox 98.8 F 71 18 101/63 100 02/05/18 16:01 02/05/18 16:01 02/05/18 16:01 02/05/18 16:01 02/05/18 16:01 Discharge - Discharge Clinical Impression: Dislodged jejunostomy tube Condition: Stable Disposition: ADMITTED INPATIENT Admitting Provider: Surgicalist Unit Admitted: Surgical Floor
[2018-02-05] MEDS ORDERED: BUPIVACAINE HCL 0.5 % INJ/PF 30 ML SDV ONE (14:06)
[2018-02-05] MEDS ORDERED: LIDOCAINE 1% INJ-PF (10 MG/ML) 30 ML SDV ONE (14:07)
[2018-02-05] MEDS: DEXTROSE 5%-LACTATED RINGERS 1,000 ML IV PRN ×2 (14:40→22:31)
[2018-02-05] MEDS ORDERED: FENTANYL CITRATE INJ/PF 100 MCG/2 ML AMPUL ONE (16:04)
[2018-02-05] MEDS ORDERED: PROPOFOL INJ 200 MG/20 ML VIAL IV ONE (16:05)
[2018-02-05] MEDS ORDERED: MIDAZOLAM 2 MG/2 ML INJ ONE (16:05)
--- NOTE | 2018-02-05 17:03 | PDOC H&P ---
History of Present Illness Admission Date/PCP: 02/05/18 13:59 NORA CASANOVA DO Patient complains of: Dislodged jejunostomy feeding tube History of Present Illness: TRAVIS HORVATH is a 38 year old female who recently underwent jejunostomy feeding tube placement for severe gastroparesis, and malnutrition. Patient was doing well with her feedings, however today her stitch broke after a coughing fit, and the jejunostomy tube became dislodged. The patient cannot eat or ingest any fluids/nutrition without her jejunostomy. The patient reports chronic pain, chronic nausea, chronic vomiting, but denies any new symptoms. Patient denies chest pain, shortness of breath, fevers, chills, dizziness, orthostasis, dysuria, blurry vision, headache. Past Medical History Cardiac Medical History: Reports: Hypertension Denies: Coronary Artery Disease, Myocardial Infarction Pulmonary Medical History: Reports: Asthma - EXERCISE INDUCED Denies: Bronchitis, Chronic Obstructive Pulmonary Disease (COPD), Pneumonia Neurological Medical History: Reports: Seizures GI Medical History: Reports: Gastroesophageal Reflux Disease Musculoskeltal Medical History: Reports: Arthritis Psychiatric Medical History: Reports: Attention Deficit Hyperactivity Disorder, Depression, Other - Chronic pain syndrome. Traumatic Medical History: Reports: Traumatic Brain Injury Hematology: Reports: Anemia Past Surgical History Past Surgical History: Reports: Appendectomy, Section - X3, Cholecystectomy, Orthopedic Surgery - L WRIST SCREW, ULNAR NERVE, Tubal Ligation , Other - H/S with uterine scar removed. Feeding jejunostomy. Social History Smoking Status: Former Smoker Last Time Smoked: 03/12/1997 Frequency of Alcohol Use: Occasional Hx Recreational Drug Use: No Drugs: None Hx Prescription Drug Abuse: No - Advance Directive Resuscitation Status: Full Code Family History Family History: Reviewed & Not Pertinent Parental Family History Reviewed: Yes Children Family History Reviewed: Yes Sibling(s) Family History Reviewed.: Yes Medication/Allergy Home Medications: Aspirin/Caffeine [Bc Powder Packet] 1 packet PO DAILYP PRN 02/05/18 Clonazepam [Klonopin 0.5 mg Tablet Rapid Dissolve] 0.5 mg PO QHS 02/05/18 Dextroamphetamine/Amphetamine [Adderall 10 mg Tablet] 10 mg PO QAM 02/05/18 Dronabinol [Marinol] 5 mg PO BID 02/05/18 Fentanyl [Duragesic 25 mcg/hr Transdermal Patch] 1 patch TD Q3D 02/05/18 Hydromorphone HCl [Dilaudid] 4 ml PO Q4HP PRN 02/05/18 Metoclopramide HCl [Reglan 10 mg Tablet] 10 mg PO ACHS 02/05/18 Pantoprazole Sodium [Protonix] 40 mg PO BID 02/05/18 Sucralfate [Carafate Susp 1 gm/10 ml Udcup] 10 ml PO QID 02/05/18 Temazepam [Restoril 15 mg Capsule] 15 mg PO HSP PRN 02/05/18 Allergies/Adverse Reactions: Heparin Analogues [Heparin Agents] Allergy (Verified 02/05/18 11:56) latex [Latex] Allergy (Verified 02/05/18 11:56) TROUBLE BREATHING, RED RASH meperidine HCl [From Demerol] Allergy (Verified 02/05/18 11:56) morphine [Morphine] Allergy (Verified 02/05/18 11:56) ondansetron HCl [From Zofran] Allergy (Verified 02/05/18 11:56) scopolamine Allergy (Verified 02/05/18 11:56) promethazine HCl [From Phenergan] Adverse Reaction (Verified 02/05/18 11:56) Review of Systems Constitutional: ABSENT: chills, fatigue, weakness Eyes: ABSENT: visual disturbances Ears: ABSENT: hearing changes Nose, Mouth, and Throat: ABSENT: sore throat Cardiovascular: ABSENT: chest pain, dyspnea on exertion Respiratory: ABSENT: cough, dyspnea Gastrointestinal: PRESENT: nausea, vomiting. ABSENT: abdominal pain, constipation Genitourinary: ABSENT: dysuria Musculoskeletal: PRESENT: back pain Integumentary: ABSENT: pruritus, rash Neurological: PRESENT: convulsions, memory loss. ABSENT: dizziness Psychiatric: PRESENT: anxiety, depression Endocrine: ABSENT: cold intolerance, heat intolerance Hematologic/Lymphatic: ABSENT: easy bleeding, easy bruising Physical Exam Vital Signs: Temp Pulse Resp BP Pulse Ox 98.8 F 71 18 101/63 100 02/05/18 16:01 02/05/18 16:01 02/05/18 16:01 02/05/18 16:01 02/05/18 16:01 Intake & Output 02/04/18 02/05/18 02/06/18 06:59 06:59 06:59 Intake Total 45 Balance 45 General appearance: PRESENT: no acute distress Head exam: PRESENT: atraumatic, normocephalic Eye exam: PRESENT: EOMI, PERRLA. ABSENT: scleral icterus Mouth exam: PRESENT: moist, neck supple Neck exam: ABSENT: meningismus, tenderness, thyromegaly, tracheal deviation Respiratory exam: PRESENT: clear to auscultation nella, symmetrical, unlabored. ABSENT: tachypnea, wheezes Cardiovascular exam: PRESENT: RRR Pulses: PRESENT: normal radial pulses Vascular exam: PRESENT: normal capillary refill GI/Abdominal exam: PRESENT: soft. ABSENT: distended, guarding, tenderness Rectal exam: PRESENT: deferred Extremities exam: ABSENT: clubbing Musculoskeletal exam: ABSENT: deformity Neurological exam: PRESENT: alert, awake, oriented to person, oriented to place , oriented to time, oriented to situation, CN II-XII grossly intact Psychiatric exam: ABSENT: anxious Skin exam: ABSENT: cyanosis, erythema, jaundice Assessment & Plan - Diagnosis (1) Dislodged jejunostomy tube Is this a current diagnosis for this admission?: Yes - Plan Summary Plan Summary: This is a 38-year-old female status post dislodgment of her feeding jejunostomy. The patient is completely dependent on her jejunostomy for all nutrition. The plan is for replacement of her jejunostomy in the operating room today. Hopefully this can be accomplished percutaneously. If not, open, operative jejunostomy will be performed. Risks/benefits discussed, informed consent obtained, and all questions answered.
[2018-02-05] MEDS ORDERED: DIPHENHYDRAMINE HCL 50 MG/ML VIAL IV PRN (17:34)
--- NOTE | 2018-02-05 18:01 | Operative Report ---
Nonrecallable Operative Report DATE OF SURGERY: 02/05/18 PREOPERATIVE DIAGNOSIS: Dislodged J-tube POSTOPERATIVE DIAGNOSIS: Dislodged J-tube OPERATION: 1. fistulagram. 2. percutaneous insertion of 18 lithuanian jejunostomy over a guidewire, under flouroscopy SURGEON: MYCHAL FERRIS ANESTHESIA: LMAC TISSUE REMOVED OR ALTERED: none COMPLICATIONS: none apparent ESTIMATED BLOOD LOSS: minimal PROCEDURE: Implants: 18 [place]alan silastic J-tube. Procedure in detail: After informed consent was obtained, the pt was laid in the supine position in the operating room. Isovue was injected into the previous jejunostomy site and a fistulagram was performed. The tract was visulaized, with contrast flowing into the jejunum. A 0.035 J-guidewire was inerted into the jejunum under flouroscopy. The 18 Fr silastic feeding tube was then slid over the guidewire. Isovue was again injected into the feeding tube. Contrast filled the small intestine without obvious leakage into the abdominal cavity. The tube was then sutured to the skin using 0 Prolene. A dressing was fashioned and the procedure was concluded. All sponge, instruments, and needle counts were correct x2. Condition: Stable.
[2018-02-05] MEDS ORDERED: HYDROMORPHONE HCL PO PRN (18:04)
[2018-02-05] MEDS ORDERED: TEMAZEPAM 15 MG CAPSULE PO PRN (18:04)
[2018-02-05] MEDS ORDERED: FENTANYL 25 MCG/HR PATCH.TD72 TD SCH (19:00)
[2018-02-05] MEDS: HYDROMORPHONE HCL INJ/PF 2 MG/ML AMPULE IV PRN ×2 (19:38→23:52)
[2018-02-05] MEDS ORDERED: HYDROMORPHONE HCL INJ/PF 2 MG/ML AMPULE IV PRN (20:05)
[2018-02-05] MEDS ORDERED: CLONAZEPAM 1 MG TABLET PO SCH (22:00)
[2018-02-05] MEDS ORDERED: (PENDING PHARMACY ID) (Clonazepam [Klonopin 0.5 Mg Tablet Rapid Dissolve] 0.5 MG) PO SCH (22:00)
[2018-02-05] MEDS ORDERED: METOCLOPRAMIDE HCL 10 MG TABLET PO SCH (22:00)
[2018-02-05] MEDS: SUCRALFATE SUSP 1 GM/10 ML UDCUP PO SCH (22:32)
--- NOTE | 2018-02-06 01:30 | RADIOLOGY REPORT (SQ) ---
PROCEDURE: FLUOROSCOPY Clinical History and Indication: J-tube exchange in the OR Comparison: None Technique: The study was done on 02/05/2018 at 5:33 PM Fluoroscopy time: 2.2 minutes Number of images: Multiple Total DLP: 34.2 mGy. Findings: Fluoroscopy was provided intraoperatively for the surgical procedure. Impression: Fluoroscopy was provided intraoperatively for the surgical procedure..
[2018-02-06] MEDS: HYDROMORPHONE HCL INJ/PF 2 MG/ML AMPULE IV PRN ×2 (03:51→08:02)
[2018-02-06] MEDS ORDERED: METOCLOPRAMIDE HCL ORAL SOLN 10 MG/10 ML UDCUP JT SCH (08:00)
[2018-02-06] MEDS: DEXTROSE 5%-LACTATED RINGERS 1,000 ML IV PRN (09:06)
[2018-02-06] MEDS: SUCRALFATE SUSP 1 GM/10 ML UDCUP PO SCH (09:17)
[2018-02-06] MEDS ORDERED: TEMAZEPAM 15 MG CAPSULE JT PRN (09:30)
[2018-02-06 09:49] VITALS: BP 106/65
--- NOTE | 2018-02-06 09:53 | PDOC DISCHARGE SUMMARY ---
General - Admit/Disc Date/PCP Admission Date/Primary Care Provider: 02/05/18 13:59 NORA CASANOVA, Discharge Date: 02/06/18 - Discharge Diagnosis (1) Dislodged jejunostomy tube Is this a current diagnosis for this admission?: Yes - Additional Information Resuscitation Status: Full Code Discharge Diet: As Tolerated Discharge Activity: Activity As Tolerated Home Medications: Aspirin/Caffeine [Bc Powder Packet] 1 packet PO DAILYP PRN 02/05/18 Clonazepam [Klonopin 0.5 mg Tablet Rapid Dissolve] 0.5 mg PO QHS 02/05/18 Dextroamphetamine/Amphetamine [Adderall 10 mg Tablet] 10 mg PO QAM 02/05/18 Dronabinol [Marinol] 5 mg PO BID 02/05/18 Fentanyl [Duragesic 25 mcg/hr Transdermal Patch] 1 patch TD Q3D 02/05/18 Hydromorphone HCl [Dilaudid] 4 ml PO Q4HP PRN 02/05/18 Metoclopramide HCl [Reglan 10 mg Tablet] 10 mg PO ACHS 02/05/18 Pantoprazole Sodium [Protonix] 40 mg PO BID 02/05/18 Sucralfate [Carafate Susp 1 gm/10 ml Udcup] 10 ml PO QID 02/05/18 Temazepam [Restoril 15 mg Capsule] 15 mg PO HSP PRN 02/05/18 History of Present Illness History of Present Illness: TRAVIS HORVATH is a 38 year old female who recently underwent jejunostomy feeding tube placement for severe gastroparesis, and malnutrition. Patient was doing well with her feedings, however her stitch broke after a coughing fit, and the jejunostomy tube became dislodged. The patient cannot eat or ingest any fluids/nutrition without her jejunostomy. The patient reports chronic pain , chronic nausea, chronic vomiting, but denies any new symptoms. Patient denies chest pain, shortness of breath, fevers, chills, dizziness, orthostasis, dysuria, blurry vision, headache. Hospital Course Hospital Course: The patient was admitted to the hospital where replacement of her feeding jejunostomy was performed in the operating room under fluoroscopy. The patient did well from this. She was taken to the floor in stable condition. Patient received tube feedings last night. She is feeling well today. She is ambulating, tolerating her tube feedings, her pain is controlled, and it was felt that she had reached maximal hospital benefit. At this time, she is medically fit for discharge. Physical Exam Vital Signs: Temp Pulse Resp BP Pulse Ox 98.6 F 86 17 106/65 100 02/06/18 09:45 02/06/18 09:45 02/06/18 09:45 02/06/18 09:45 02/06/18 09:45 Intake & Output 02/05/18 02/06/18 02/07/18 06:59 06:59 06:59 Intake Total 1874 1000 Output Total 0 Balance 1874 1000 Weight 50.9 kg Qualifiers - * PATIENT BEING DISCHARGED WITH ANY OF THE FOLLOWING DIAGNOSIS: No Plan Discharge Plan: Discharge home. Diet as tolerated. Activity: Nonstrenuous. Follow-up with me as needed. Time Spent: Less than 30 Minutes
[2018-02-06] MEDS ORDERED: LANSOPRAZOLE 30 MG TAB.RAP.DR JT SCH (10:00)
[2018-02-06] MEDS ORDERED: (PENDING PHARMACY ID) (Dronabinol [Marinol] 5 MG) PO SCH (10:00)
[2018-02-06] MEDS ORDERED: DRONABINOL 2.5 MG CAPSULE JT SCH (10:00)
[2018-02-06] MEDS ORDERED: LANSOPRAZOLE 30 MG TAB.RAP.DR PO SCH (10:00)
[2018-02-06] MEDS ORDERED: SUCRALFATE SUSP 1 GM/10 ML UDCUP JT SCH (10:00)
[2018-02-06] MEDS ORDERED: DRONABINOL 2.5 MG CAPSULE PO SCH (10:00)
[2018-02-06] MEDS ORDERED: CLONAZEPAM 1 MG TABLET JT SCH (22:00)
[2018-02-07] MEDS ORDERED: FENTANYL 25 MCG/HR PATCH.TD72 TD SCH (10:00)
== END 2018-02-06 12:07 | disposition home or self-care (01) | DRG 345 ==
LOC: ER 11:06 → EH 13:59 → 4N 15:11
PROVIDERS: ADMIT Surgery; ATTEND Surgery
PROC: BW111ZZ Fluoroscopy of Abdomen and Pelvis using Low Osmolar Contrast (ICD-10-PCS; 2018-02-05)
PROC: 0DWD3UZ Revision of Feeding Device in Lower Intestinal Tract, Percutaneous Approach (ICD-10-PCS; principal; 2018-02-05 17:00)
DX: K94.19 Other complications of enterostomy (principal); E46 Unspecified protein-calorie malnutrition; K31.84 Gastroparesis; I10 Essential (primary) hypertension; J45.909 Unspecified asthma, uncomplicated; G40.909 Epilepsy, unspecified, not intractable, without status epilepticus; K21.9 Gastro-esophageal reflux disease without esophagitis; M19.90 Unspecified osteoarthritis, unspecified site; F90.9 Attention-deficit hyperactivity disorder, unspecified type; F32.9 Major depressive disorder, single episode, unspecified; G89.4 Chronic pain syndrome; Z79.82 Long term (current) use of aspirin; Z79.899 Other long term (current) drug therapy; Z87.820 Personal history of traumatic brain injury; Z90.49 Acquired absence of other specified parts of digestive tract; Z87.891 Personal history of nicotine dependence; Z88.8 Allergy status to other drugs, medicaments and biological substances; Z91.040 Latex allergy status; Z68.20 Body mass index [BMI] 20.0-20.9, adult
CPT/HCPCS: 49451; 700; 96372; 99284; A9270-GY; C1769; J1170; J2250; J2704; J3010; J3490